=== PATIENT | female | born 1970 | race Caucasian/White ===

== ENCOUNTER 2017-08-25 12:58 | Emergency (ER) | payer SELFPAY ==
[~2017-08-25] VITALS: Ht 175.3 cm; Wt 119.3 kg
[2017-08-25] MEDS ORDERED: PROM25 PO (15:32)
== END 2017-08-25 15:52 | disposition home or self-care (01) ==
LOC: ER 12:58
DX: S06.0X9A Concussion with loss of consciousness of unspecified duration, initial encounter (principal); W01.0XXA Fall on same level from slipping, tripping and stumbling without subsequent striking against object, initial encounter
CPT/HCPCS: 99283

== ENCOUNTER 2018-07-13 01:35 | Emergency (ER) | payer BC ==
[~2018-07-13] VITALS: Ht 175.3 cm; Wt 134.7 kg
[~2018-07-13 01:35] MED LIST: PROM25 PO
[2018-07-13] MEDS ORDERED: CEPH500 (02:15)
[2018-07-13] MEDS ORDERED: FLUC100 (02:15)
[2018-07-13] MEDS ORDERED: VALA500 (02:15)
[2018-07-13] MEDS ORDERED: NYST100000 (02:15)
[2018-07-13 03:05] LABS: BASOPHILS ABSOLUTE AUTO 0.06 K/mm3 (0.00-0.23); BASOPHILS PERCENT AUTO 1 % (0-2); EOSINOPHILS ABSOLUTE AUTO 0.13 K/mm3 (0.00-0.68); EOSINOPHILS PERCENT AUTO 2 % (0-6); Hematocrit 37.7 % (33.0-51.0); Hemoglobin 13.1 g/dL (11.5-16.0); IMMATURE GRAN ABSOLUTE AUTO 0.02 K/mm3 (0.00-0.10); IMMATURE GRAN PERCENT AUTO 0 % (0-1); LYMPHOCYTES ABSOLUTE AUTO 1.99 K/mm3 (0.84-5.20); LYMPHOCYTES PERCENT AUTO 32 % (21-46); MONOCYTES ABSOLUTE AUTO 0.78 K/mm3 (0.16-1.47); MONOCYTES PERCENT AUTO 13 % (4-13); Mean Corpuscular HGB 36.7 pg (26.0-34.0); Mean Corpuscular HGB Conc 34.7 g/dL (31.5-36.5); Mean Corpuscular Volume 106 fL (80-100); Mean Platelet Volume 10.3 fL (9.1-12.4); NEUTROPHILS ABSOLUTE AUTO 3.16 K/mm3 (1.96-9.15); NEUTROPHILS PERCENT AUTO 52 % (41-73); Platelet Count 168 K/mm3 (150-400); RDW Coefficient Variation 12.3 % (11.7-14.2); RDW Standard Deviation 48.3 fL (35.1-46.3); Red Blood Cell Count 3.57 M/mm3 (3.80-5.20); White Blood Cell Count 6.14 K/mm3 (4.00-11.30)
[2018-07-13 03:24] LABS: Alanine Aminotransfer (ALT/SGP 116 U/L (12-78); Albumin, Blood 3.4 g/dL (3.4-5.0); Albumin/Globulin Ratio 0.8 (0.8-1.8); Alk Phos 144 U/L (50-136); Anion Gap 8 mmol/L (6-16); Aspartate Aminotrans (AST/SGOT 100 U/L (12-37); Bilirubin, Total 0.5 mg/dL (0.1-1.0); Blood Urea Nitrogen 13 mg/dL (8-24); Bun/Creatinine Ratio 21.8 (12.0-20.0); CO2, Blood 24 mmol/L (21-32); Calcium, Blood 8.6 mg/dL (8.5-10.1); Chloride, Blood 110 mmol/L (98-108); Globulin, Blood 4.1 g/dL (2.2-4.0); Glomerular Filtration Rate >60 (60-); Glucose, Blood 133 mg/dL (70-99); Potassium, Blood 3.9 mmol/L (3.5-5.5); Sodium, Blood 142 mmol/L (136-145); Total Protein, Blood 7.5 g/dL (6.4-8.2); Troponin I <0.015 ng/mL (0.000-0.040)
== END 2018-07-13 05:04 | disposition home or self-care (01) ==
LOC: ER 01:35
PROVIDERS: Emergency Medicine
DX: R00.2 Palpitations (principal); Z79.899 Other long term (current) drug therapy; F17.200 Nicotine dependence, unspecified, uncomplicated
CPT/HCPCS: 36415; 71046; 80053; 83690; 84484; 85025; 93005; 93010; 99285-25

== ENCOUNTER → 2019-03-16 | Outpatient (CLI) | payer BC ==
[~2019-03-16] MED LIST changes: +CEPH500; +FLUC100; +NYST100000; +VALA500
[2019-03-18 06:07] LABS: HBSAG SCREEN Negative (Negative); HCV ANTIBODY 0.2 (0.0-0.9)
== END ==
LOC: LAB SHORT 14:26 → LAB 14:26
PROVIDERS: Nurse Practitioner
DX: Z77.21 Contact with and (suspected) exposure to potentially hazardous body fluids (principal)
CPT/HCPCS: 84460; 86317; 86703; 86803; 87340

== ENCOUNTER 2020-06-23 10:06 | Emergency (ER) | payer OTHER ==
[~2020-06-23] VITALS: Ht 175.3 cm; Wt 136.1 kg
[2020-06-23 11:12] LABS: BASOPHILS ABSOLUTE AUTO 0.05 K/mm3 (0.00-0.23); BASOPHILS PERCENT AUTO 1 % (0-2); EOSINOPHILS ABSOLUTE AUTO 0.04 K/mm3 (0.00-0.68); EOSINOPHILS PERCENT AUTO 1 % (0-6); Hematocrit 40.7 % (33.0-51.0); Hemoglobin 13.9 g/dL (11.5-16.0); IMMATURE GRAN ABSOLUTE AUTO 0.04 K/mm3 (0.00-0.10); IMMATURE GRAN PERCENT AUTO 1 % (0-1); LYMPHOCYTES ABSOLUTE AUTO 1.41 K/mm3 (0.84-5.20); LYMPHOCYTES PERCENT AUTO 26 % (21-46); MONOCYTES ABSOLUTE AUTO 0.72 K/mm3 (0.16-1.47); MONOCYTES PERCENT AUTO 13 % (4-13); Mean Corpuscular HGB 36.5 pg (26.0-34.0); Mean Corpuscular HGB Conc 34.2 g/dL (31.5-36.5); Mean Corpuscular Volume 107 fL (80-100); Mean Platelet Volume 10.7 fL (9.1-12.4); NEUTROPHILS ABSOLUTE AUTO 3.14 K/mm3 (1.96-9.15); NEUTROPHILS PERCENT AUTO 58 % (41-73); Platelet Count 117 K/mm3 (150-400); RDW Coefficient Variation 12.8 % (11.7-14.2); RDW Standard Deviation 51.1 fL (35.1-46.3); Red Blood Cell Count 3.81 M/mm3 (3.80-5.20)
[2020-06-23 11:36] LABS: Alanine Aminotransfer (ALT/SGP 108 U/L (12-78); Albumin, Blood 3.5 g/dL (3.4-5.0); Albumin/Globulin Ratio 0.8 (0.8-1.8); Alk Phos 175 U/L (50-136); Anion Gap 11 mmol/L (6-16); Aspartate Aminotrans (AST/SGOT 123 U/L (12-37); Bilirubin, Total 0.6 mg/dL (0.1-1.0); Blood Urea Nitrogen 8 mg/dL (8-24); Bun/Creatinine Ratio 15.5 (12.0-20.0); CO2, Blood 25 mmol/L (21-32); Calcium, Blood 9.1 mg/dL (8.5-10.1); Chloride, Blood 106 mmol/L (98-108); Creatinine, Blood 0.52 mg/dL (0.40-1.00); Globulin, Blood 4.6 g/dL (2.2-4.0); Glomerular Filtration Rate >60 (60-); Glucose, Blood 123 mg/dL (70-99); Potassium, Blood 3.9 mmol/L (3.5-5.5); Sodium, Blood 142 mmol/L (136-145); Total Protein, Blood 8.1 g/dL (6.4-8.2); Troponin I <0.015 ng/mL (0.000-0.040)
[2020-06-23] MEDS ORDERED: ATEN25 PO (12:23)
== END 2020-06-23 12:52 | disposition home or self-care (01) ==
LOC: ER 10:06
PROVIDERS: Physician Assistant
DX: I10 Essential (primary) hypertension (principal); F17.200 Nicotine dependence, unspecified, uncomplicated; Z79.899 Other long term (current) drug therapy
CPT/HCPCS: 36415; 71046; 80053; 84484; 85025; 93005; 93010; 96374; 99285-25; J2060

== ENCOUNTER 2021-05-01 20:02 | Emergency (ER) | payer OTHER ==
[~2021-05-01] VITALS: Ht 175.3 cm; Wt 127.0 kg
[~2021-05-01 20:02] MED LIST changes: +ATEN25 PO
[2021-05-01 20:40] LABS: BASOPHILS ABSOLUTE AUTO 0.05 K/mm3 (0.00-0.23); BASOPHILS PERCENT AUTO 1 % (0-2); EOSINOPHILS ABSOLUTE AUTO 0.04 K/mm3 (0.00-0.68); EOSINOPHILS PERCENT AUTO 1 % (0-6); Hemoglobin 11.6 g/dL (11.5-16.0); IMMATURE GRAN ABSOLUTE AUTO 0.05 K/mm3 (0.00-0.10); IMMATURE GRAN PERCENT AUTO 1 % (0-1); LYMPHOCYTES ABSOLUTE AUTO 1.49 K/mm3 (0.84-5.20); LYMPHOCYTES PERCENT AUTO 24 % (21-46); MONOCYTES ABSOLUTE AUTO 0.54 K/mm3 (0.16-1.47); MONOCYTES PERCENT AUTO 9 % (4-13); Mean Corpuscular HGB 34.6 pg (26.0-34.0); Mean Corpuscular HGB Conc 34.1 g/dL (31.5-36.5); Mean Corpuscular Volume 102 fL (80-100); Mean Platelet Volume 10.3 fL (9.1-12.4); NEUTROPHILS ABSOLUTE AUTO 4.07 K/mm3 (1.96-9.15); NEUTROPHILS PERCENT AUTO 65 % (41-73); Platelet Count 149 K/mm3 (150-400); RDW Coefficient Variation 13.2 % (11.7-14.2); RDW Standard Deviation 48.9 fL (35.1-46.3); Red Blood Cell Count 3.35 M/mm3 (3.80-5.20); White Blood Cell Count 6.24 K/mm3 (4.00-11.30)
[2021-05-01 21:07] LABS: Alanine Aminotransfer (ALT/SGP 55 U/L (12-78); Albumin, Blood 3.3 g/dL (3.4-5.0); Albumin/Globulin Ratio 0.7 (0.8-1.8); Alk Phos 142 U/L (50-136); Anion Gap 8 mmol/L (6-16); Aspartate Aminotrans (AST/SGOT 106 U/L (12-37); Bilirubin, Total 0.6 mg/dL (0.1-1.0); Blood Urea Nitrogen 7 mg/dL (8-24); Bun/Creatinine Ratio 10.4 (12.0-20.0); CO2, Blood 25 mmol/L (21-32); Chloride, Blood 110 mmol/L (98-108); Creatinine, Blood 0.67 mg/dL (0.40-1.00); Ethanol (Alcohol), Blood, Med <3 mg/dL; Globulin, Blood 4.7 g/dL (2.2-4.0); Glomerular Filtration Rate >60 (60-); Glucose, Blood 139 mg/dL (70-99); Magnesium, Blood 1.3 mg/dL (1.6-2.4); Potassium, Blood 3.6 mmol/L (3.5-5.5); Sodium, Blood 143 mmol/L (136-145)
[2021-05-02] MEDS ORDERED: LISI20 PO (00:37)
[2021-05-02] MEDS ORDERED: ZOLOFT50 MG (00:37)
[2021-05-02] MEDS ORDERED: CHLO25 (00:38)
[2021-05-02] MEDS ORDERED: HYDR10 (00:38)
[2021-05-02] MEDS ORDERED: TRAZ100 (00:39)
== END 2021-05-02 02:41 | disposition home or self-care (01) ==
LOC: ER 20:02
PROVIDERS: Emergency Medicine
DX: F10.10 Alcohol abuse, uncomplicated (principal); S00.12XA Contusion of left eyelid and periocular area, initial encounter; S00.83XA Contusion of other part of head, initial encounter; E83.42 Hypomagnesemia; G89.29 Other chronic pain; M54.9 Dorsalgia, unspecified; F17.200 Nicotine dependence, unspecified, uncomplicated; Z79.899 Other long term (current) drug therapy; W01.0XXA Fall on same level from slipping, tripping and stumbling without subsequent striking against object, initial encounter
CPT/HCPCS: 36415; 70450; 70486; 80053; 83690; 83735; 85025; 93005; 93010; 96365; 96366; 99284-25; G0480; J3475

== ENCOUNTER 2021-07-08 20:31 | Emergency (ER) | payer OTHER ==
[~2021-07-08] VITALS: Ht 175.3 cm; Wt 128.8 kg
[~2021-07-08 20:31] MED LIST changes: +CHLO25; +HYDR10; +LISI20 PO; +TRAZ100; +ZOLOFT50 MG
[2021-07-09] MEDS ORDERED: ONDA4ODT SL (18:42)
== END 2021-07-08 22:31 | disposition home or self-care (01) ==
LOC: ER 20:31
DX: R04.0 Epistaxis (principal); I10 Essential (primary) hypertension; F17.200 Nicotine dependence, unspecified, uncomplicated
CPT/HCPCS: 99283; A9270

== ENCOUNTER 2021-07-09 14:17 | Emergency (ER) | payer OTHER ==
[~2021-07-09] VITALS: Ht 175.3 cm; Wt 128.8 kg
[2021-07-09 17:14] LABS: BASOPHILS ABSOLUTE AUTO 0.03 K/mm3 (0.00-0.23); BASOPHILS PERCENT AUTO 0 % (0-2); EOSINOPHILS PERCENT AUTO 0 % (0-6); Hematocrit 30.6 % (33.0-51.0); Hemoglobin 10.1 g/dL (11.5-16.0); IMMATURE GRAN ABSOLUTE AUTO 0.02 K/mm3 (0.00-0.10); IMMATURE GRAN PERCENT AUTO 0 % (0-1); LYMPHOCYTES ABSOLUTE AUTO 1.35 K/mm3 (0.84-5.20); LYMPHOCYTES PERCENT AUTO 15 % (21-46); MONOCYTES ABSOLUTE AUTO 0.77 K/mm3 (0.16-1.47); MONOCYTES PERCENT AUTO 8 % (4-13); Mean Corpuscular HGB 34.2 pg (26.0-34.0); Mean Corpuscular Volume 104 fL (80-100); Mean Platelet Volume 11.3 fL (9.1-12.4); NEUTROPHILS ABSOLUTE AUTO 6.98 K/mm3 (1.96-9.15); NEUTROPHILS PERCENT AUTO 76 % (41-73); Platelet Count 147 K/mm3 (150-400); RDW Coefficient Variation 16.3 % (11.7-14.2); RDW Standard Deviation 62.5 fL (35.1-46.3); Red Blood Cell Count 2.95 M/mm3 (3.80-5.20); White Blood Cell Count 9.15 K/mm3 (4.00-11.30)
[2021-07-09 17:33] LABS: Alanine Aminotransfer (ALT/SGP 28 U/L (12-78); Albumin, Blood 3.3 g/dL (3.4-5.0); Albumin/Globulin Ratio 0.7 (0.8-1.8); Alk Phos 115 U/L (50-136); Anion Gap 5 mmol/L (6-16); Aspartate Aminotrans (AST/SGOT 40 U/L (12-37); Blood Urea Nitrogen 36 mg/dL (8-24); Bun/Creatinine Ratio 40.6 (12.0-20.0); CO2, Blood 23 mmol/L (21-32); Calcium, Blood 9.4 mg/dL (8.5-10.1); Chloride, Blood 112 mmol/L (98-108); Creatinine, Blood 0.89 mg/dL (0.40-1.00); Globulin, Blood 4.9 g/dL (2.2-4.0); Glomerular Filtration Rate >60 (60-); Glucose, Blood 149 mg/dL (70-99); Potassium, Blood 4.6 mmol/L (3.5-5.5); Sodium, Blood 140 mmol/L (136-145); Total Protein, Blood 8.2 g/dL (6.4-8.2)
[2021-07-09 18:02] LABS: International Normalized Ratio 1.35; Prothrombin Time Results 13.9 Sec (9.7-11.5)
[2021-07-09] MEDS ORDERED: ONDA4ODT SL (18:42)
== END 2021-07-09 18:54 | disposition home or self-care (01) ==
LOC: ER 14:17
PROVIDERS: Emergency Medicine
DX: R04.0 Epistaxis (principal); Z79.899 Other long term (current) drug therapy; I10 Essential (primary) hypertension; Z87.891 Personal history of nicotine dependence
CPT/HCPCS: 30903; 80053; 85025; 85610; 85730; 99282; A9270

== ENCOUNTER 2021-10-27 11:34 | Inpatient (IN) | payer OTHER ==
[~2021-10-27] VITALS: Ht 175.3 cm; Wt 119.6 kg
[~2021-10-27 11:34] MED LIST changes: +ONDA4ODT SL
[2021-10-27 14:33] LABS: Albumin, Blood 1.9 g/dL (3.4-5.0); Albumin/Globulin Ratio 0.3 (0.8-1.8); Bilirubin, Total 2.2 mg/dL (0.1-1.0); Bun/Creatinine Ratio 13.8 (12.0-20.0); Calcium, Blood 7.7 mg/dL (8.5-10.1); Creatinine, Blood 4.06 mg/dL (0.40-1.00); Globulin, Blood 6.2 g/dL (2.2-4.0); Potassium, Blood 4.1 mmol/L (3.5-5.5); Total Protein, Blood 8.1 g/dL (6.4-8.2)
[2021-10-27 15:41] LABS: BASOPHILS ABSOLUTE AUTO 0.06 K/mm3 (0.00-0.23); BASOPHILS PERCENT AUTO 0 % (0-2); EOSINOPHILS ABSOLUTE AUTO 0.08 K/mm3 (0.00-0.68); EOSINOPHILS PERCENT AUTO 0 % (0-6); IMMATURE GRAN ABSOLUTE AUTO 0.36 K/mm3 (0.00-0.10); IMMATURE GRAN PERCENT AUTO 2 % (0-1); LYMPHOCYTES ABSOLUTE AUTO 1.88 K/mm3 (0.84-5.20); LYMPHOCYTES PERCENT AUTO 8 % (21-46); MONOCYTES ABSOLUTE AUTO 1.73 K/mm3 (0.16-1.47); MONOCYTES PERCENT AUTO 8 % (4-13); Mean Corpuscular HGB 29.1 pg (26.0-34.0); Mean Corpuscular HGB Conc 30.7 g/dL (31.5-36.5); Mean Corpuscular Volume 95 fL (80-100); Mean Platelet Volume 11.2 fL (9.1-12.4); NEUTROPHILS ABSOLUTE AUTO 18.75 K/mm3 (1.96-9.15); NEUTROPHILS PERCENT AUTO 82 % (41-73); NRBC ABSOLUTE 0.02 K/mm3 (0.00-0.02); NRBC Auto 0.1 /100 WBC (0.0-0.2); Platelet Count 114 K/mm3 (150-400); RDW Coefficient Variation 26.5 % (11.7-14.2); RDW Standard Deviation 90.7 fL (35.1-46.3); Red Blood Cell Count 1.89 M/mm3 (3.80-5.20); White Blood Cell Count 22.86 K/mm3 (4.00-11.30)
[2021-10-27 15:42] LABS: Magnesium, Blood 1.9 mg/dL (1.6-2.4); Phosphorus, Blood 7.2 mg/dL (2.5-4.9)
[2021-10-27 15:46] LABS: Hemoglobin 5.5 g/dL (11.5-16.0)
[2021-10-27 15:47] LABS: Hematocrit 17.9 % (33.0-51.0)
[2021-10-27 18:36] LABS: BASOPHILS ABSOLUTE AUTO 0.04 K/mm3 (0.00-0.23); BASOPHILS PERCENT AUTO 0 % (0-2); EOSINOPHILS ABSOLUTE AUTO 0.08 K/mm3 (0.00-0.68); EOSINOPHILS PERCENT AUTO 0 % (0-6); IMMATURE GRAN ABSOLUTE AUTO 0.31 K/mm3 (0.00-0.10); IMMATURE GRAN PERCENT AUTO 1 % (0-1); LYMPHOCYTES ABSOLUTE AUTO 1.92 K/mm3 (0.84-5.20); LYMPHOCYTES PERCENT AUTO 8 % (21-46); MONOCYTES ABSOLUTE AUTO 2.18 K/mm3 (0.16-1.47); MONOCYTES PERCENT AUTO 10 % (4-13); Mean Corpuscular HGB 29.4 pg (26.0-34.0); Mean Corpuscular HGB Conc 31.1 g/dL (31.5-36.5); Mean Corpuscular Volume 94 fL (80-100); Mean Platelet Volume 11.2 fL (9.1-12.4); NEUTROPHILS PERCENT AUTO 80 % (41-73); NRBC ABSOLUTE 0.02 K/mm3 (0.00-0.02); NRBC Auto 0.1 /100 WBC (0.0-0.2); Platelet Count 118 K/mm3 (150-400); RDW Coefficient Variation 26.1 % (11.7-14.2); RDW Standard Deviation 87.8 fL (35.1-46.3); Red Blood Cell Count 1.77 M/mm3 (3.80-5.20); White Blood Cell Count 22.93 K/mm3 (4.00-11.30)
[2021-10-27 18:46] LABS: Hematocrit 16.7 % (33.0-51.0); Hemoglobin 5.2 g/dL (11.5-16.0)
[2021-10-27 19:08] LABS: Ferritin, Serum 153 ng/mL (8-252); Iron Serum 24 ug/dL (50-170); Percent Saturation 12.2 % (15.0-50.0); Total Iron Binding Capacity 197 ug/dL (250-450)
[2021-10-28 02:16] LABS: BASOPHILS ABSOLUTE AUTO 0.05 K/mm3 (0.00-0.23); BASOPHILS PERCENT AUTO 0 % (0-2); EOSINOPHILS ABSOLUTE AUTO 0.11 K/mm3 (0.00-0.68); EOSINOPHILS PERCENT AUTO 1 % (0-6); Hematocrit 22.8 % (33.0-51.0); Hemoglobin 7.2 g/dL (11.5-16.0); IMMATURE GRAN ABSOLUTE AUTO 0.23 K/mm3 (0.00-0.10); IMMATURE GRAN PERCENT AUTO 1 % (0-1); LYMPHOCYTES ABSOLUTE AUTO 1.99 K/mm3 (0.84-5.20); LYMPHOCYTES PERCENT AUTO 10 % (21-46); MONOCYTES ABSOLUTE AUTO 2.16 K/mm3 (0.16-1.47); MONOCYTES PERCENT AUTO 11 % (4-13); Mean Corpuscular HGB 28.8 pg (26.0-34.0); Mean Corpuscular HGB Conc 31.6 g/dL (31.5-36.5); Mean Corpuscular Volume 91 fL (80-100); Mean Platelet Volume 10.5 fL (9.1-12.4); NEUTROPHILS ABSOLUTE AUTO 15.84 K/mm3 (1.96-9.15); NEUTROPHILS PERCENT AUTO 78 % (41-73); Platelet Count 102 K/mm3 (150-400); RDW Coefficient Variation 23.5 % (11.7-14.2); RDW Standard Deviation 73.3 fL (35.1-46.3); White Blood Cell Count 20.38 K/mm3 (4.00-11.30)
[2021-10-28 02:34] LABS: Albumin, Blood 1.7 g/dL (3.4-5.0); Albumin/Globulin Ratio 0.3 (0.8-1.8); Bilirubin, Total 2.3 mg/dL (0.1-1.0); Bun/Creatinine Ratio 14.6 (12.0-20.0); Calcium, Blood 7.4 mg/dL (8.5-10.1); Creatinine, Blood 4.19 mg/dL (0.40-1.00); Potassium, Blood 4.3 mmol/L (3.5-5.5); Total Protein, Blood 7.7 g/dL (6.4-8.2)
--- NOTE | 2021-10-28 06:48 | NUR ---
SHIFT SUMMARY NOC: PT RECIEVED 3 UNITS PRBC TOTAL WITHOUT COMPLICATION. PT IS ALERT AND ORIENTATED, 2L NC SOB WITH EXERTION. ALL 4 BOTTLES OF BLOOD CULTURE GREW GRAM POSITIVE COCCI. PHARMACY STATED CURRENT ABX ARE EXCEPTABLE. UPDATED, NO NEW ORDERS. PT AFEBRILE, VITALS STABLE.
[2021-10-28 10:11] LABS: BASOPHILS ABSOLUTE AUTO 0.06 K/mm3 (0.00-0.23); BASOPHILS PERCENT AUTO 0 % (0-2); EOSINOPHILS ABSOLUTE AUTO 0.15 K/mm3 (0.00-0.68); EOSINOPHILS PERCENT AUTO 1 % (0-6); Hematocrit 21.8 % (33.0-51.0); Hemoglobin 6.8 g/dL (11.5-16.0); IMMATURE GRAN ABSOLUTE AUTO 0.27 K/mm3 (0.00-0.10); IMMATURE GRAN PERCENT AUTO 1 % (0-1); LYMPHOCYTES PERCENT AUTO 11 % (21-46); MONOCYTES PERCENT AUTO 11 % (4-13); Mean Corpuscular HGB 28.7 pg (26.0-34.0); Mean Corpuscular HGB Conc 31.2 g/dL (31.5-36.5); Mean Corpuscular Volume 92 fL (80-100); Mean Platelet Volume 11.2 fL (9.1-12.4); NEUTROPHILS ABSOLUTE AUTO 15.33 K/mm3 (1.96-9.15); NEUTROPHILS PERCENT AUTO 76 % (41-73); Platelet Count 100 K/mm3 (150-400); RDW Coefficient Variation 23.9 % (11.7-14.2); RDW Standard Deviation 72.3 fL (35.1-46.3); Red Blood Cell Count 2.37 M/mm3 (3.80-5.20); White Blood Cell Count 20.31 K/mm3 (4.00-11.30)
[2021-10-28 14:54] LABS: Source, Urine Straight Cath
[2021-10-28 15:03] LABS: Appearance, Urine Hazy (Clear); Blood, Urine 1+ (Neg); Color, Urine Amber (P-Yellow); Glucose Qualitative, Urine Neg (Neg); Ketones, Urine Neg (Neg); Leukocyte Esterase, Urine Neg (Neg); Nitrite, Urine Neg (Neg); Protein, Urine 2+ (Neg); Urobilinogen, Urine 1+ (Normal)
[2021-10-28 15:15] LABS: Bilirubin, Urine 1+ (Neg)
[2021-10-28 15:17] LABS: Bacteria Many /hpf; Squamous Epithelial Cells Many /hpf (Few); Transitional Epithelial Cells Rare /hpf (0-Rare)
[2021-10-28 15:54] LABS: Hemoglobin 6.9 g/dL (11.5-16.0)
--- NOTE | 2021-10-28 16:16 | NUR ---
PT HAS MANY FAMILY MEMBERS WHO ARE SITTING WITH HER AND IT WAS DECIDED TO MOVE HER TO A ROOM WITH MORE SPACE TO ACCOMMEDATE THEM. REPORT GIVEN TO LION BECKER AND PT TRANFERRED WITH ALL BELONGINGS @ 9988. FAMILY MEMBERS DIRECTED TO NEW ROOM.
--- NOTE | 2021-10-28 16:20 | NUR ---
DISREGARD LAST NOTE MADE ABOUT PT TRANFER, IT WAS MADE IN ERROR ABOUT A DIFFERENT PT
[2021-10-28 16:27] LABS: Lactate Dehydrogenase (Ld),Bld 280 U/L (100-240)
[2021-10-28 16:34] LABS: CPK Creatine Kinase 38 U/L (26-193)
[2021-10-28 17:34] LABS: Eosinophils-Raw #,Urine 2
--- NOTE | 2021-10-28 19:39 | NUR ---
SHIFT SUMMARY PT WAS LETHARGIC AND SLEEPY THIS AM. BLOOD PRESSURE HAS BEEN SOFT TODAY. AWARE ALONG WITH TROPS AND RECENT HGB. PT RECIEVED A 500 ML BOLUS THIS PM WHICH BROUGHT UP HER BP A LITTLE TO 106/61. SHE IS MUCH MORE AWAKE AND TALKATIVE. SHE HAS SIGNIFICANT BACK PAIN AND IS USING A HEATING PAD. OKAYED PAIN MEDS AT A BP OF 102/55 THIS PM. IS IN THE ROOM AT THE BEDSIDE. SHE IS ON 2L OF O2 AND IS SATTING 96% SOMETIMES NEEDS TO BE BUMPED WHEN WALKING TO THE BATHROOM. PT HAS REFUSED BEDSIDE COMMODE AND IS A 1 O ASSIST TO THE BATHROOM WITH A WALKER. URINE SAMPLE SENT AWAY AND CONSULT WITH RECOVERY ENGINEER WAS THIS AFTERNOON.
[2021-10-28 22:04] LABS: Hemoglobin 6.7 g/dL (11.5-16.0)
--- NOTE | 2021-10-28 23:53 | NUR ---
THERE WAS A COMPLICATION WITH THE UNIT READY SLIP FROM BLOOD BANK - I SENT IT BACK QUITE AWHILE AGO. I FOLLOWED UP WITH A TELEPHONE CALL TO GOPAL IN THE BLOOD BANK, AND HE REPORTED HE NEVER RECEIVED IT. GOPAL REPORTED HE WOULD SEND ANOTHER UNIT READY SLIP DOWN. HE DID SEND ANOTHER UNIT READY SLIP, HOWEVER KADEN BAH SPOKE TO LAB, AND THEY REPORTED THEY FOUND THE FIRST UNIT READY SLIP AND TO PLEASE SEND THE 2ND UNIT READY SLIP BACK. I DECIDED TO HANG THE ALBUMIN, REVIEWED WITH KADEN BAH ON THIS. THEN JURGEN, FROM LAB CAME DOWN AND BROUGHT ANOTHER UNIT READY SLIP TO BE VERIFIED AT 2350. I TOLD JURGEN I WAS RUNNING THE ALBUMIN NOW, AND WILL CALL WHEN FINISHED FOR THE UNIT OF BLOOD. H&H NOT CRITICAL - SEE LAB.
--- NOTE | 2021-10-29 02:21 | NUR ---
PT UP WITH 2 PERSON ASSIST TO BSC. PT REPORTED NEEDING TO VOID, UNSUCCESSFUL. REVIEWED WITH PT, IF SHE FELT ANY LOWER ABDOMINAL PRESSURE OR FEELING URGE TO URINATE ONCE BACK INTO BED, PT DENIED.
--- NOTE | 2021-10-29 02:52 | NUR ---
BLADDER SCAN X5 ATTEMPTS - NO URINE SHOWN ON SCAN.
--- NOTE | 2021-10-29 03:00 | NUR ---
SPOKE TO DR. JIMENES - UPDATED ON BLADDER SCAN RESULT OF ZERO, AND NEPHROLOGY ON THE CASE. REVIEWED GFR RESULTS WITH DR. JIMENES. BLADDER SCAN ORDER OBTAINED.
--- NOTE | 2021-10-29 04:39 | NUR ---
SHIFT SUMMARY - PT CONTINUES WITH GENERALIZED WEAKNESS. PT IS MORBIDLY OBESE. PT UP TO BRP WITH SBA X1, THEN BSC WITH 2 PERSON SBA - PT WAS ABLE TO STAND AND PIVOT. PT DENIED ANY CHEST PAIN, HEADACHE, OR NAUSEA. TELE IN PLACE - RHYTHM STRIP ON CHART SHOWS NSR. PT RECEIVED 1 UNIT PRBC'S WITHOUT COMPLICATIONS. PT WITH POOR URINE OUTPUT - SEE I/O'S. SANDOSTATIN INFUSING WITHOUT COMPLICATIONS. LS VARIED FROM WHEEZES PRIOR TO ADMINISTRATION OF BLOOD TONIGHT, TO CLEAR LUNG SOUNDS AFTER 1U PRBC'S INFUSED. PT HAS BEEN OFF/ON SLEEPING THROUGHOUT MOST OF THE NIGHT. PT AWAKENS EASILY TO VERBAL COMMUNICATION. NEPHROLOGY ON THE CASE. R FA IV SITE WNL, L AC IV SITE WNL. FLUIDS AT BEDSIDE. CALL LIGHT WITHIN REACH. BED IN LOW POSITION. WILL CONTINUE TO MONITOR UNTIL AM SHIFT CHANGE.
[2021-10-29 05:54] LABS: BASOPHILS ABSOLUTE AUTO 0.13 K/mm3 (0.00-0.23); BASOPHILS PERCENT AUTO 1 % (0-2); EOSINOPHILS ABSOLUTE AUTO 0.27 K/mm3 (0.00-0.68); EOSINOPHILS PERCENT AUTO 1 % (0-6); Hematocrit 24.8 % (33.0-51.0); Hemoglobin 7.7 g/dL (11.5-16.0); IMMATURE GRAN ABSOLUTE AUTO 0.29 K/mm3 (0.00-0.10); IMMATURE GRAN PERCENT AUTO 2 % (0-1); LYMPHOCYTES ABSOLUTE AUTO 2.53 K/mm3 (0.84-5.20); LYMPHOCYTES PERCENT AUTO 13 % (21-46); MONOCYTES ABSOLUTE AUTO 2.83 K/mm3 (0.16-1.47); MONOCYTES PERCENT AUTO 15 % (4-13); Mean Corpuscular HGB 28.8 pg (26.0-34.0); Mean Corpuscular Volume 93 fL (80-100); Mean Platelet Volume 10.4 fL (9.1-12.4); NEUTROPHILS ABSOLUTE AUTO 12.89 K/mm3 (1.96-9.15); NEUTROPHILS PERCENT AUTO 68 % (41-73); Platelet Count 93 K/mm3 (150-400); RDW Coefficient Variation 23.4 % (11.7-14.2); RDW Standard Deviation 73.6 fL (35.1-46.3); Red Blood Cell Count 2.67 M/mm3 (3.80-5.20); White Blood Cell Count 18.94 K/mm3 (4.00-11.30)
[2021-10-29 06:15] LABS: Albumin, Blood 2.3 g/dL (3.4-5.0); Albumin/Globulin Ratio 0.4 (0.8-1.8); Bilirubin, Total 1.5 mg/dL (0.1-1.0); Bun/Creatinine Ratio 11.4 (12.0-20.0); Calcium, Blood 7.4 mg/dL (8.5-10.1); Creatinine, Blood 5.6 mg/dL (0.40-1.00); Globulin, Blood 5.9 g/dL (2.2-4.0); Potassium, Blood 4.5 mmol/L (3.5-5.5); Total Protein, Blood 8.2 g/dL (6.4-8.2)
--- NOTE | 2021-10-29 06:26 | NUR ---
NA+ 125 THIS AM, TREND HAS BEEN 127, 128 - REVIEWED WITH ELAINE, AND KADEN BAH - OK TO RELAY TO AM SHIFT. GFR 9, TRENDING DOWNWARD - NEPHROLOGY ON THE CASE - WILL REPORT THIS TO ONCOMING SHIFT ALSO.
[2021-10-29 08:46] LABS: Vancomycin, Random 16.8 ug/mL
[2021-10-29 10:11] LABS: COMPLEMENT C3, SERUM 107 mg/dL (82-167); COMPLEMENT C4, SERUM 12 mg/dL (12-38)
--- NOTE | 2021-10-29 19:16 | NUR ---
SHIFT SUMMARY PATIENT VERY TIRED AND FORGETFUL T/O SHIFT. PATIENTS AT BEDSIDE MOST OF SHIFT. HEAVY 2PA TO BSC. PITTING EDEMA PRESENT ON BLE. ON TELE SINUS RHYTHM. TEMPORARY DIALYSIS CATHETER PLACED THIS AFTERNOON AND PATIENT CURRENTLY RECEIVING DIALYSIS AT BEDSIDE. POOR APPETITE T/O SHIFT. PATIENT UNABLE TO VOID, GETTING UP A FEW TIMES TO BSC BUT UNABLE TO PEE. SOFT BLOOD PRESSURES, MEDICATED PER JUL. ON 2L NC. WILL CONTINUE TO MONITOR.
--- NOTE | 2021-10-30 05:17 | NUR ---
SHIFT SUMMARY ASSUMED CARE OF PT AROUND 1900. PT IS A/OX3. PT IS FORGETFUL AND SLOW TO RESPOND. PT HAS A HARD TIME TRACKING WITH HER EYES AND WILL FORGET THAT TO DO THE TASK ASKED WITHLE DOING IT. FOR EXAMPLE, PT WAS ASKED TO HOLD HER ARM DOWN WHILE MEDICATIONS WRE GIVEN AND PT MOVED ARM TO FACE AND HAD TO BE ASKEDTO PUT ARM BACK DOWN. HEART SOUNDS REGULAR, LUNG SOUNDS DIMINISHED. PT WAS INCONTIENT OF BOWEL AND BLADDER. PT IS A 2P MAX ASSIST. PT IS VERY EDEMADOUS ALL OVER. NYSTATIN ORDERED FOR PANUS AND UNDER BREAST DUE TO REDNESS. PT HAS A SMALL ABRASION IN BETWEEN HER BUTTOCK.
[2021-10-30 05:45] LABS: BASOPHILS ABSOLUTE AUTO 0.08 K/mm3 (0.00-0.23); BASOPHILS PERCENT AUTO 1 % (0-2); EOSINOPHILS ABSOLUTE AUTO 0.17 K/mm3 (0.00-0.68); EOSINOPHILS PERCENT AUTO 1 % (0-6); Hematocrit 21.5 % (33.0-51.0); Hemoglobin 6.8 g/dL (11.5-16.0); IMMATURE GRAN ABSOLUTE AUTO 0.15 K/mm3 (0.00-0.10); IMMATURE GRAN PERCENT AUTO 1 % (0-1); LYMPHOCYTES ABSOLUTE AUTO 1.47 K/mm3 (0.84-5.20); LYMPHOCYTES PERCENT AUTO 12 % (21-46); MONOCYTES ABSOLUTE AUTO 1.33 K/mm3 (0.16-1.47); MONOCYTES PERCENT AUTO 11 % (4-13); Mean Corpuscular HGB 29.1 pg (26.0-34.0); Mean Corpuscular HGB Conc 31.6 g/dL (31.5-36.5); Mean Corpuscular Volume 92 fL (80-100); Mean Platelet Volume 11.3 fL (9.1-12.4); NEUTROPHILS ABSOLUTE AUTO 9.33 K/mm3 (1.96-9.15); NEUTROPHILS PERCENT AUTO 75 % (41-73); Platelet Count 70 K/mm3 (150-400); RDW Coefficient Variation 23.3 % (11.7-14.2); Red Blood Cell Count 2.34 M/mm3 (3.80-5.20); White Blood Cell Count 12.53 K/mm3 (4.00-11.30)
[2021-10-30 06:07] LABS: Bun/Creatinine Ratio 10.7 (12.0-20.0); Calcium, Blood 7.7 mg/dL (8.5-10.1); Creatinine, Blood 4.4 mg/dL (0.40-1.00); Potassium, Blood 4.1 mmol/L (3.5-5.5)
[2021-10-30 08:11] LABS: HBSAG SCREEN Negative (Negative); HCV AB 0.2 (0.0-0.9); HEP B CORE AB, TOT Negative (Negative)
[2021-10-30 09:08] LABS: SARS-Cov-2 (COVID-19) PCR, MMC NEGATIVE (NEGATIVE)
[2021-10-30 09:11] LABS: COMPLEMENT C3, SERUM 102 mg/dL (82-167)
[2021-10-30 14:11] LABS: A/G RATIO 0.4 (0.7-1.7); ALBUMIN 1.9 g/dL (2.9-4.4); ALPHA-1-GLOBULIN 0.4 g/dL (0.0-0.4); ALPHA-2-GLOBULIN 0.8 g/dL (0.4-1.0); BETA GLOBULIN 0.8 g/dL (0.7-1.3); M-SPIKE Not Observed g/dL (Not Observed); PROTEIN, TOTAL, SERUM 6.9 g/dL (6.0-8.5)
--- NOTE | 2021-10-30 16:47 | NUR ---
10/30/21 1647 URIEL CARCAMO History, Chart, Medications and Allergies reviewed before start of procedure.DR TRUJILLO PROVIDES ANESTHESIA SEE RECORDS
[2021-10-30 18:06] LABS: ANTI-DSDNA ANTIBODIES <1 IU/mL (0-9); RNP ANTIBODIES 0.4 AI (0.0-0.9); SJOGREN'S ANTI-SS-A <0.2 AI (0.0-0.9); SJOGREN'S ANTI-SS-B <0.2 AI (0.0-0.9); SMITH ANTIBODIES <0.2 AI (0.0-0.9)
--- NOTE | 2021-10-30 19:14 | NUR ---
SHIFT SUMMARY PATIENT A&OX3. PATIENT DROWSY ALL OF SHIFT ONLY WAKING WHEN WOKEN UP AND WILL QUICKLY FALL BACK ASLEEP. PATIENT IS SLOW TO RESPOND AND WILL FORGET THE TASK AT HAND. HEAVY 2PA TO BSC OR BEDPAN. ON 2L NC. TELE SR. EDEMATOUS T/O. RECEIVED DIALYSIS THIS AM AND RECEIVING 1 UNIT PRBC DURING DIALYSIS. UPPER GI SCOPE DONE LATER IN EVENING. NO BLEEDING FOUND DURING SCOPE. PATIENT NPO MOST OF DAY FOR SCOPE AND VERY LITTLE APPETITE AT DINNER. C/O BACK PAIN, MEDICATED PER JUL. REDNESS UNDER PANNUS, MEDICATED POWDER APPLIED. PATIENT WILL GET URGE TO URINATE WITH VERY LITTLE OUTPUT, BLADDER SCAN SHOWING 0ML. REPORT GIVEN TO ONCOMING RN.
[2021-10-31 05:55] LABS: Albumin, Blood 2.8 g/dL (3.4-5.0); Anion Gap 11 mmol/L (6-16); Blood Urea Nitrogen 43 mg/dL (8-24); Bun/Creatinine Ratio 11.9 (12.0-20.0); CO2, Blood 24 mmol/L (21-32); Calcium, Blood 8.7 mg/dL (8.5-10.1); Chloride, Blood 93 mmol/L (98-108); Creatinine, Blood 3.61 mg/dL (0.40-1.00); Glomerular Filtration Rate 14 (60-); Glucose, Blood 125 mg/dL (70-99); Phosphorus, Blood 6.7 mg/dL (2.5-4.9); Potassium, Blood 4.2 mmol/L (3.5-5.5); Sodium, Blood 128 mmol/L (136-145)
--- NOTE | 2021-10-31 05:55 | NUR ---
SHIFT SUMMARY AOX3-BIRTHDATE, HOSPITAL & FOLLOWING MINIMAL DIRECTIONS. VERY LETHARGIC & DROWSY T/O SHIFT. FALLS ASLEEP BETWEEN QUESTIONS & WHEN ATTEMPTING TO RESPOND. HAS QUIET WHISPER SPEECH. NO S/SX N/V, PAIN OR DYSPNEA. VSS. TELE NSR 80. SPO2 >90% ON 2L O2. MORE AWAKE THIS AM, FOUND DANGLING ON EOB. INCONT/CONT OF URINE. REPOSITIONED PRN. EDEMA T/O BODY, +3 BLE, ELEVATED FEET. CALL LIGHT IN REACH. WILL MONITOR.
[2021-10-31 08:10] LABS: HBSAG SCREEN Negative (Negative); HCV ANTIBODY 0.1 (0.0-0.9); HEP B CORE AB, TOT Negative (Negative)
[2021-10-31 09:10] LABS: Hematocrit 26.9 % (33.0-51.0); Hemoglobin 8.1 g/dL (11.5-16.0)
[2021-10-31 09:10] LABS: HBSAG SCREEN Negative (Negative); HCV AB 0.1 (0.0-0.9); HEP A AB, IGM Negative (Negative); HEP B CORE AB, IGM Negative (Negative)
--- NOTE | 2021-10-31 14:30 | NUR ---
PT TO CT @ THIS TIME, PLAN TO COLLECT POST OP VITALS WHEN RETURNED.
--- NOTE | 2021-10-31 17:35 | NUR ---
SHIFT SUMMARY PT A&O X2-3 AND IN PLEASENT MOOD T/O SHIFT. PT EXTREMLY LETHARGIC T/O SHIFT. SPOUSE @ BEDSIDE DURING SHIFT. PT TO CT FOR SINUSES. ALCIRA COMPLETE THIS SHIFT, VEGITATION REPORTED TO DR. RODRIGUES COMPLETE THIS SHIFT. CALL LIGHT W/IN REACH. HYPOTENSION NOTED T/O SHIFT, MEDICATED PER EMAR. TELE IN PLACE.
--- NOTE | 2021-11-01 02:27 | NUR ---
DESAT/O2 WHILE THIS NURSE WAS ON LUNCH ANOTHER NURSE, MALI Mendoza, MEDICATED FOR PAIN BECAUSE PT REPORTED FEELING UNCOMFORTABLE. THEN OTHER NURSE, CATHY Cantor, FOUND PT c NC OFF & STATED HE COULD NOT GET SPO2 ABOVE 80% & WHEN HE FIRST CAME INTO RM SPO2 @60%. BY THE TIME I CAME INTO RM SPO2 80-84%. RT WAS INFORMED & TOLD CATHY TO PLACE NON-REBREATHER ON. PT TACHYPNIC RR >24, SCATTERED WHEEZES HEARD T/O LOBES c FINE CRACKLES RLL, VERY LABOURED BREATHING. RT CHANGED PT TO HF NC. SPO2 89-92% ON 8L HF NC. BREATHING MORE UNLABOURED NOW. WILL MONITOR.
[2021-11-01 05:32] LABS: BASOPHILS ABSOLUTE AUTO 0.09 K/mm3 (0.00-0.23); BASOPHILS PERCENT AUTO 1 % (0-2); EOSINOPHILS ABSOLUTE AUTO 0.06 K/mm3 (0.00-0.68); EOSINOPHILS PERCENT AUTO 0 % (0-6); Hematocrit 23.7 % (33.0-51.0); Hemoglobin 7.5 g/dL (11.5-16.0); IMMATURE GRAN ABSOLUTE AUTO 0.17 K/mm3 (0.00-0.10); IMMATURE GRAN PERCENT AUTO 1 % (0-1); LYMPHOCYTES ABSOLUTE AUTO 1.02 K/mm3 (0.84-5.20); LYMPHOCYTES PERCENT AUTO 6 % (21-46); MONOCYTES PERCENT AUTO 8 % (4-13); Mean Corpuscular HGB 29.1 pg (26.0-34.0); Mean Corpuscular HGB Conc 31.6 g/dL (31.5-36.5); Mean Corpuscular Volume 92 fL (80-100); NEUTROPHILS ABSOLUTE AUTO 14.04 K/mm3 (1.96-9.15); NEUTROPHILS PERCENT AUTO 84 % (41-73); Platelet Count 79 K/mm3 (150-400); RDW Coefficient Variation 22.7 % (11.7-14.2); RDW Standard Deviation 72.8 fL (35.1-46.3); Red Blood Cell Count 2.58 M/mm3 (3.80-5.20); White Blood Cell Count 16.78 K/mm3 (4.00-11.30)
[2021-11-01 05:54] LABS: Bun/Creatinine Ratio 12.8 (12.0-20.0); Creatinine, Blood 2.98 mg/dL (0.40-1.00)
--- NOTE | 2021-11-01 07:51 | NUR ---
SHIFT SUMMARY AOX2-SELF, HOSPITAL, FOLLOWING MIN DIRECTIONS. PT HAS BEEN MORE CONFUSED & FORGETFUL THIS EVENING COMPARED TO PREVIOUS NIGHT. HELD HS TRAZADONE SINCE PT DROWSY. TELE NSR HR 70. AT 0600 FOUND PT c NC OFF, CHECKED SPO2 ON RA & SPO2 @42%, PLACED NC RIGHT AWAY & INCREASED O2 TO MAX. SPO2 EVENTUALLY MAINTAINED >90% ON 13L O2 HF NC. INFORMED DR JIMENES THAT PT KEPT TAKING CANNULA OFF & NEW INCREASED O2 NEEDS. DR JIMENES ORDERED BREATHING TX, BD PROTOCAL, CONT PULSE OX & 1VIEW CHEST XRAY. WHILE GIVING REPORT TO DAY SHIFT RN, PT HAD AGAIN REMOVED NC & WAS ON RA. SPO2 @62% ON RA, PLACED NC MAXED 02 & SPO2 RECOVERED. PT CURRENTLY ON 13L, MAINTAINS SATS LONG SHE KEEPS CANNULA IN PLACE. REPORTED PAIN & WAS MEDICATED 1X c ULTRAM. CALL LIGHT IN REACH, PT DOESNT USE. BED ALARM IN PLACE.
--- NOTE | 2021-11-01 09:30 | NUR ---
PT ARRIVES TO ICU FROM MEDICAL FLOOR. PT LETHARGIC BUT AWAKENS TO VERBAL STIMULI, ABLE TO STATE NAME AND . PT. ARRIVES WITH PT. PT. ON 10LNC WITH SPO2 94% UPON ARRIVAL. MEDICAL FLOOR RN REPORTS PT HAD BLOODY NOSE THIS AM. O2 PLACED TO HUMIDIFIED AIR. PT SHAKES HEAD NO TO PAIN OR FEELINGS OF SOB. PT. HAS DIALYSIS CATHETER TO RIGHT IJ. SOILED ATTENDS CHANGED WITH TRANSFER TO ICU BED. PT. INCONT. OF URINE. PT. HAS 3+ EDEMA TO LEIGH [place]. DR. RINCON AT BEDSIDE TO EVAL. VSS AT THIS TIME.
[2021-11-01 09:54] LABS: PCO2 Arterial 48.1 mmHg (35-45); PO2 Arterial 62.8 mmHg (80-100); pH Blood Arterial 7.35 (7.35-7.45)
--- NOTE | 2021-11-01 10:48 | NUR ---
SPO2 DROPPING DESPITE INCREASED TITRATION TO 02, DOWN TO 84%. NON REBREATHER PLACED WITH IMMEDIATE RECOVER TO SPO2 100%. PT. HAD BLOODY NOSE PREVIOUSLY TODAY. DR RINCON TO BEDSIDE. PLANS FOR BIPAP.
[2021-11-01 11:27] LABS: Source, Urine Foley catheter
[2021-11-01 11:31] LABS: SARS-Cov-2 (COVID-19) PCR, MMC NEGATIVE (NEGATIVE)
[2021-11-01 11:42] LABS: Appearance, Urine Hazy (Clear); Blood, Urine 1+ (Neg); Color, Urine Yellow (P-Yellow); Glucose Qualitative, Urine Neg (Neg); Ketones, Urine 1+ (Neg); Leukocyte Esterase, Urine 1+ (Neg); Nitrite, Urine Neg (Neg); Protein, Urine 3+ (Neg); Specific Gravity, Urine 1.025 (1.003-1.022); Urobilinogen, Urine 1+ (Normal)
[2021-11-01 12:10] LABS: Bilirubin, Urine 2+ (Neg)
[2021-11-01 12:14] LABS: Squamous Epithelial Cells Mod /hpf (Few)
[2021-11-01 12:15] LABS: Bacteria Mod /hpf
--- NOTE | 2021-11-01 13:33 | NUR ---
UPDATE, PT. RESTING COMFORTABLY ON BIPAP AT THIS TIME. CURRENT SETTINGS, 05/04, 55%. PT. FAMILY REMAINS AT BEDSIDE. SMALL AMT OF DARK YELLOW URINE DRAINING TO GRAVITY. PT. REMAINS LETHARGIC, BUT WILL AWAKEN TO VERBAL STIMULI. ORAL MEDS HELD DUE TO ASPIRATION RISK. VSS AT THIS TIME. CALL LIGHT IN REACH.
--- NOTE | 2021-11-01 17:21 | NUR ---
SHIFT SUMMARY PT. REMAINS LETHARGIC T/O DAY. AWAKENS TO VERBAL STIMULI AND FOLLOWS COMMANDS. PT. ON BIPAP WITH BREAK TO HIGH FLOW NC. POWERGLIDE PLACED TO LEFT UPPER ARM AND MAY CATHETER PLACED TODAY, DRAINING TO GRAVITY. DIALYSIS THIS PM. FAMILY REMAINS AT BEDSIDE T/O DAY. VSS AT THIS TIME. REPORT TO ONCOMING RN.
--- NOTE | 2021-11-01 20:42 | NUR ---
PATIENT AWAKENS TO VERBAL STIMULI, ANSWERING SIMPLE QUESTIONS, FALLING TO SLEEP EASILY WHEN UNDISTURBED. OXYGEN 6L/NC IN PLACE AND TITRATING NEEDED. BIPAP IN ROOM IF NEEDED. PLAN FOR DIALYSIS TOMORROW PER DOCTOR AUGUSTIN.
--- NOTE | 2021-11-01 21:54 | NUR ---
PATIENT AWAKE, BERTRAND PO MEDICATIONS WITHOUT DIFFICULTY. ASSISTING WITH REPOSITIONING IN BED BUT GENERALIZED WEAKNESS CONTINUES. RED AREA UNDER PANUS MEDICATED WITH MEDICATED POWDER AFTER BEING CLEANSED
[2021-11-02 04:03] LABS: Base Excess Venous 0.9 mmol/L; Bicarbonate Venous 25.3 mmol/L (24.0-30.0); PCO2 Venous 36.7 mmHg (38-42); PO2 Venous 135 mmHg (38-42); pH Blood Venous 7.44 (7.34-7.37)
[2021-11-02 04:21] LABS: BASOPHILS ABSOLUTE AUTO 0.07 K/mm3 (0.00-0.23); BASOPHILS PERCENT AUTO 1 % (0-2); EOSINOPHILS ABSOLUTE AUTO 0.16 K/mm3 (0.00-0.68); EOSINOPHILS PERCENT AUTO 1 % (0-6); Hematocrit 23.8 % (33.0-51.0); Hemoglobin 7.2 g/dL (11.5-16.0); IMMATURE GRAN ABSOLUTE AUTO 0.13 K/mm3 (0.00-0.10); IMMATURE GRAN PERCENT AUTO 1 % (0-1); LYMPHOCYTES ABSOLUTE AUTO 1.37 K/mm3 (0.84-5.20); LYMPHOCYTES PERCENT AUTO 11 % (21-46); MONOCYTES ABSOLUTE AUTO 1.02 K/mm3 (0.16-1.47); MONOCYTES PERCENT AUTO 8 % (4-13); Mean Corpuscular HGB 28.5 pg (26.0-34.0); Mean Corpuscular HGB Conc 30.3 g/dL (31.5-36.5); Mean Corpuscular Volume 94 fL (80-100); Mean Platelet Volume 10.4 fL (9.1-12.4); NEUTROPHILS ABSOLUTE AUTO 9.87 K/mm3 (1.96-9.15); NEUTROPHILS PERCENT AUTO 78 % (41-73); Platelet Count 90 K/mm3 (150-400); RDW Coefficient Variation 23.3 % (11.7-14.2); RDW Standard Deviation 78.2 fL (35.1-46.3); Red Blood Cell Count 2.53 M/mm3 (3.80-5.20); White Blood Cell Count 12.62 K/mm3 (4.00-11.30)
[2021-11-02 04:25] LABS: Albumin, Blood 2.4 g/dL (3.4-5.0); Albumin/Globulin Ratio 0.5 (0.8-1.8); Bilirubin, Total 1.5 mg/dL (0.1-1.0); Bun/Creatinine Ratio 11.1 (12.0-20.0); Creatinine, Blood 3.25 mg/dL (0.40-1.00); Globulin, Blood 5.2 g/dL (2.2-4.0); Phosphorus, Blood 5.7 mg/dL (2.5-4.9); Potassium, Blood 4.3 mmol/L (3.5-5.5); Total Protein, Blood 7.6 g/dL (6.4-8.2)
--- NOTE | 2021-11-02 05:59 | NUR ---
SUMMARY PATIENT MORE AWAKE THIS MORNING, SLIGHTLY RESTLESS. NEEDING FREQUENT REMINDING TO NOT TAKE OXYGEN OUT OF HER NOSE AND TO LEAVE IT IN BOTH NOSTRILS. PATIENT CONTINUES TO REMOVE OXYGEN FROM LEFT NARE. SLIGHT NOSE BLEED TO LEFT NARE AFTER PATIENT BLOWING NOSE AND CONTINUALLY PICKING AT LEFT NARE DESPITE FREQUENT REMINDERS TO LEAVE CLOT IN PLACE TO PREVENT ANOTHER NOSE BLEED. OXYGEN TITRATED DOWN TO 4L/NC. BIPAP REMAINING OFF T/O NIGHT. PATIENT CONTINUES TO BE SOB WITH SLIGHT ACTIVITY.
--- NOTE | 2021-11-02 08:05 | NUR ---
SHALLOW RAPID BREATHES, DIAPHORETIC, TO HAVE DIALYSIS THIS AM AT 0830, CONSULTS FOR JAILYN AND MICHAEL CALLED, AT BEDSIDE HELPFUL, INCREASED NC TO 6L O2, SATS 86-89%, SATS NOW 89%, WILL NOTIFIY RT, CALL LIGHT WITH IN REACH, PATIENT CONITNUES TO SCRATCH AT NOSE AND TRIALYSIS CATHETER ON RIGHT NECK, WCTM
--- NOTE | 2021-11-02 08:34 | NUR ---
DR NENA HENAO, ROUNDED[facility], ORDERED LASIX 80 MG BID TO MONITOR PATIENTS URINE RESPONSE, URINE CREATIIE AND SODIUM SENT, REPORTED SATS 86-89% ON 5L HIGHFLOW TO RT, RT WAS FINE WITH JUST INCREASING THE HIGHFLOW, SATS NOW AT 94% ON 8L HIGHFLOW
--- NOTE | 2021-11-02 09:08 | NUR ---
DIALYSIS RUNNING IN ROOM NOW, POOR APPETITE, VERY WEAK, MEDICATED WITH LASIX
[2021-11-02 12:08] LABS: M-SPIKE, % Not Observed % (Not Observed); PROTEIN,TOTAL,URINE 123.9 mg/dL (Not Estab.)
[2021-11-02 14:08] LABS: ACTIN (SMOOTH MUSCLE) ANTIBODY 13 Units (0-19); MITOCHONDRIAL (M2) ANTIBODY <20.0 Units (0.0-20.0)
--- NOTE | 2021-11-02 14:53 | NUR ---
DR RAMIREZ ROUNDED ON PAITENT REPORTED TO FAMILY, DR KYLE IN ROOM NOW WITH FAMILY, WCTM
--- NOTE | 2021-11-02 17:20 | NUR ---
PATIENT AWAKE, FLAT EFFECT, MINIMAL INTERACTIONS, FORGETFUL, CONTINUES TO PICK AT NOSE AND TRIALYSIS CATHETER ON THE RIGHT NECK, AT BEDSIDE HELPFUL WITH CARE. SHALLOW RAPID RESPIRATIONS 25-30, 8L O2 VIA HFNC, SATS 91%, HELD MIDODRINE TODAY, SBP 120-190S, BP NOW 167/150, MEDICATED WITH ATARAX FOR ANXIETY. MAY TO GRAVITY, EPISTAXIS STOPPED BLEEDING, REPORTED TO DR GLASER, DR GLASER TO ROUND ON PATIENT TOMORROW. DR RODRIGUEZ TO ONLY FOLLOW UP IF NEEDED OR BLEEDING RESTARTS, DIALYSIS TODAY 3.2 LITERS OFF, CALL LIGHT WITH IN REACH, TM
--- NOTE | 2021-11-02 19:30 | NUR ---
PATIENT AWAKE AND RESTLESS, HANGING RIGHT LEG OUT OF BED. "I'M COMFORTABLE THIS WAY" A&O X3 YET NEEDING REMINDING TO KEEP OXYGEN IN PLACE AND TO NOT PULL AT DIALYSIS CATH TO HER RIGHT IJ. PATIENT SOB WITH ACTIVITY OXYGEN 8L/NC. GENERALIZED WEAKNESS CONTINUES.
--- NOTE | 2021-11-02 21:00 | NUR ---
PATIENT REPOSITIONED WITH CEILING LIFT. BERTRAND PO MEDICATIONS WITHOUT DIFFICULTY. CONTINUES ON 8L/NC. RIGHT IJ DIALYSIS LINE SECURED WITH BLUE SILICONE TAPE TO HELP PATIENT TO REMEMBER TO NOT PULL ON OR ITCH AT THE LINE. PATIENT MEDICATED WITH ULTRAM FOR GENERALIZED AND BACK PAIN.
--- NOTE | 2021-11-03 03:49 | NUR ---
PATIENT BECOMING MORE RESTLESS AFTER ATARAX GIVEN. PATIENT RESP HIGH 20'S AND UNABLE TO LAY STILL. PATIENT UNSURE OF WHY FEELING RESTLESS, DENIES PAIN. BIPAP PLACED 12/6 FIO2 50% PATIENT VERBALIZED UNDERSTANDING OF WHY PUTTING BIPAP ON YET CONTINUES TO PULL OFF BIPAP. DOCTOR KYLE CALLED AND NOTIFIED ORDER FOR ATIVAN AND RESTRAINTS.
--- NOTE | 2021-11-03 04:35 | NUR ---
PATIENT NOW MORE RELAXED WITH BIPAP IN PLACE. RESP 20. BIOX 94% BILAT WRIST RESTRAINTS CONTINUED
--- NOTE | 2021-11-03 06:02 | NUR ---
SUMMARY PATIENT RESTING QUIETLY WITH BIPAP IN PLACE PRESSURES CHANGED BY RT TO 14/8 FIO2 50% LUNG SOUNDS CONTINUE TO BE DECREASED BASES. MAY DRAINING SMALL AMT OF DARK ZOFIA/TEA COLOR URINE. DIALYSIS CATH TO RIGHT IJ LESS IRRITATING FOR PATIENT WITH BEING REINFORCED WITH BLUE SILICONE TAPE TO KEEP IT CONTAINED. BILAT WRIST RESTRAINTS IN PLACE TO KEEP BIPAP IN PLACE.
[2021-11-03 07:28] LABS: Albumin, Blood 2.3 g/dL (3.4-5.0); Anion Gap 9 mmol/L (6-16); Blood Urea Nitrogen 37 mg/dL (8-24); CO2, Blood 26 mmol/L (21-32); Calcium, Blood 8.7 mg/dL (8.5-10.1); Chloride, Blood 99 mmol/L (98-108); Creatinine, Blood 2.85 mg/dL (0.40-1.00); Glomerular Filtration Rate 19 (60-); Glucose, Blood 118 mg/dL (70-99); Phosphorus, Blood 5.2 mg/dL (2.5-4.9); Potassium, Blood 4.2 mmol/L (3.5-5.5); Sodium, Blood 134 mmol/L (136-145)
--- NOTE | 2021-11-03 11:58 | NUR ---
UPDATE PT SLEEPING HEAVILY, WAKES TO TOUCH, OPENS EYES BRIEFLY THEN GOES BACK TO SLEEP. VSS. SPO2 > 90% ON BIPAP: 11/01, FIO2 50%, TRANSITIONED TO 8L HI-ROSEANN NC @ APPROX 1145. MONITOR SHOWING SR, HR 70's-80's. DIALYSIS DONE IN PT RM THIS AM, NOW COMPLETE. PO MEDICATIONS NOT YET GIVEN D/T PT INABILITY TO KEEP EYES OPEN LONGER THAN A FEW SECONDS OR FOLLOW COMMANDS FOR OPENING MOUTH FOR ORAL CARE. LEIGH GONZALEZ DC'd THIS AM. FAMILY AT BEDSIDE.
--- NOTE | 2021-11-03 18:26 | NUR ---
SHIFT SUMMARY PT PCU STATUS. PT SLEEPING T/O DAY, OPENING EYES FOR ONLY SHORT MOMENTS AT A TIME. PT UNABLE TO REMAIN AWAKE LONG ENOUGH FOR SAFE PO INTAKE THIS SHIFT. UNABLE TO ASSESS PT ORIENTATION THIS SHIFT. BILAT SWR DC'd THIS AM, PT NOT PULLING AT LINES/TUBES THIS SHIFT. PT VSS. MONITOR SHOWING SR, HR 70's-80's. SPO2 > 90% ON BIPAP: 11/01, FIO2 50%, TRANSITIONED TO 8L HI-ROSEANN NC & ABLE TO BE TITRATED DOWN TO 4L NC THIS SHIFT. TEMP MAY PATENT & DRAINING MINIMAL DARK YELLOW URINE.
--- NOTE | 2021-11-03 19:29 | NUR ---
TRANSFER TO PCU REPORT GIVEN TO ACCEPTING PCU POULTRY HATCHERY LABORER RN. PT TRANSFERED FROM ICU-12 TO PCU-01 BY BED W/ BELONGINGS ON 4L NC @ APPROX 1920.
[2021-11-04 04:04] LABS: BASOPHILS ABSOLUTE AUTO 0.09 K/mm3 (0.00-0.23); BASOPHILS PERCENT AUTO 1 % (0-2); EOSINOPHILS ABSOLUTE AUTO 0.12 K/mm3 (0.00-0.68); EOSINOPHILS PERCENT AUTO 1 % (0-6); Hematocrit 23.2 % (33.0-51.0); IMMATURE GRAN ABSOLUTE AUTO 0.07 K/mm3 (0.00-0.10); IMMATURE GRAN PERCENT AUTO 1 % (0-1); LYMPHOCYTES ABSOLUTE AUTO 1.54 K/mm3 (0.84-5.20); LYMPHOCYTES PERCENT AUTO 15 % (21-46); MONOCYTES ABSOLUTE AUTO 0.83 K/mm3 (0.16-1.47); MONOCYTES PERCENT AUTO 8 % (4-13); Mean Corpuscular HGB 28.9 pg (26.0-34.0); Mean Corpuscular HGB Conc 30.2 g/dL (31.5-36.5); Mean Corpuscular Volume 96 fL (80-100); Mean Platelet Volume 9.8 fL (9.1-12.4); NEUTROPHILS ABSOLUTE AUTO 7.44 K/mm3 (1.96-9.15); NEUTROPHILS PERCENT AUTO 74 % (41-73); Platelet Count 94 K/mm3 (150-400); RDW Coefficient Variation 23.5 % (11.7-14.2); RDW Standard Deviation 79.5 fL (35.1-46.3); Red Blood Cell Count 2.42 M/mm3 (3.80-5.20); White Blood Cell Count 10.09 K/mm3 (4.00-11.30)
[2021-11-04 04:20] LABS: Albumin, Blood 2.3 g/dL (3.4-5.0); Anion Gap 10 mmol/L (6-16); Blood Urea Nitrogen 47 mg/dL (8-24); Bun/Creatinine Ratio 11.9 (12.0-20.0); CO2, Blood 25 mmol/L (21-32); Calcium, Blood 8.7 mg/dL (8.5-10.1); Chloride, Blood 100 mmol/L (98-108); Creatinine, Blood 3.95 mg/dL (0.40-1.00); Glomerular Filtration Rate 13 (60-); Glucose, Blood 107 mg/dL (70-99); Phosphorus, Blood 5.6 mg/dL (2.5-4.9); Potassium, Blood 4.1 mmol/L (3.5-5.5); Sodium, Blood 135 mmol/L (136-145)
--- NOTE | 2021-11-04 05:48 | NUR ---
SHIFT SUMMARY PT WAS XFERRED FROM ICU TO PCU VIA ICU BED AT START OF SHIFT. PT WAS SLID BY 4 STAFF FROM ICU BED TO PCU BED. PT DROWSY BUT AROUSABLE. CONFUSED. ABLE TO SWALLOW PILLS WITH APPLESAUCE. SP02>5L HUMIDIFIED HI ROSEANN, CPAP AT NOC 14 CM 40% FI02. TELEMETRY SHOWS NSR MOSTLY 80'S. PT HAS TEMP MAY THAT DRAINED MINIMAL URINE TO GRAVITY. NO BM THIS SHIFT. PT TOOK CPAP OFF OFTEN DURING SHIFT, WOULD DESAT TO 70'S. PT CONINUALLY REDIRECTED AND CPAP REAPPLIED. CALL PLACED TO MD JIMENES. MD JIMENES W/ ORDERS FOR ATIVAN Q2, WHICH DECREASED MASK PULLING BUT DID NOT ELIMINATE. PT REPOSITIONED Q2H. ORAL CARE DONE, PT BIT FREQUENTLY AT THE SUCTION PROBE. PT'S HGB RESULTED 7.0 THIS AM LABS. CALL PLACED TO MD JIMENES. MD JIMENES W/ ORDERS FOR 1 UNIT PRBC DURING DIALYSIS TODAY AND TO CALL PT'S DIRECTOR GLOBAL STRATEGIC PUBLISHER SALES TO NOTIFY AT 0700 AM. CALL LIGHT IN REACH.
[2021-11-04 14:34] LABS: Hematocrit 24.4 % (33.0-51.0); Hemoglobin 7.7 g/dL (11.5-16.0)
--- NOTE | 2021-11-04 18:05 | NUR ---
SHIFT SUMMARY PT LETHARGIC T/O SHIFT, OPENING EYES BRIEFLY WHEN SPOKEN TO. 1 UNIT OF BLOOD GIVEN W/ DIALYSIS THIS AM. PT BP LOW DURING DIALYSIS, IMPROVED W/ UNIT OF BLOOD (SEE VS). PT WAKING UP MORE THIS EVENING, SAYING WORDS & OPENING MOUTH MORE FOR ORAL CARE, THOUGH PT STILL BITING DOWN ON SUCTION SWABS. SMALL AMOUNTS OF DRIED BLOOD CLEANED FROM MOUTH DURING ORAL CARE T/O SHIFT. TEMP MAY CATH PATENT & DRAINING SMALL AMOUNT OF DARK YELLOW URINE. PT WEARING 4-5L NC T/O DAY. MONITOR SHOWING SR, HR 60s-90s. PT FAMILY AT BEDSIDE.
[2021-11-05 04:05] LABS: BASOPHILS ABSOLUTE AUTO 0.09 K/mm3 (0.00-0.23); BASOPHILS PERCENT AUTO 1 % (0-2); EOSINOPHILS ABSOLUTE AUTO 0.14 K/mm3 (0.00-0.68); EOSINOPHILS PERCENT AUTO 1 % (0-6); Hematocrit 25.6 % (33.0-51.0); IMMATURE GRAN ABSOLUTE AUTO 0.07 K/mm3 (0.00-0.10); IMMATURE GRAN PERCENT AUTO 1 % (0-1); LYMPHOCYTES ABSOLUTE AUTO 1.87 K/mm3 (0.84-5.20); LYMPHOCYTES PERCENT AUTO 15 % (21-46); MONOCYTES ABSOLUTE AUTO 1.03 K/mm3 (0.16-1.47); MONOCYTES PERCENT AUTO 8 % (4-13); Mean Corpuscular HGB 29.2 pg (26.0-34.0); Mean Corpuscular HGB Conc 31.3 g/dL (31.5-36.5); Mean Corpuscular Volume 93 fL (80-100); Mean Platelet Volume 9.9 fL (9.1-12.4); NEUTROPHILS ABSOLUTE AUTO 9.34 K/mm3 (1.96-9.15); NEUTROPHILS PERCENT AUTO 75 % (41-73); Platelet Count 101 K/mm3 (150-400); RDW Coefficient Variation 22.8 % (11.7-14.2); RDW Standard Deviation 74.6 fL (35.1-46.3); Red Blood Cell Count 2.74 M/mm3 (3.80-5.20); White Blood Cell Count 12.54 K/mm3 (4.00-11.30)
--- NOTE | 2021-11-05 04:21 | NUR ---
PT UPDATE KEPT PT ON NC UNTIL APPROX 0200 TO AVOID GIVING ATIVAN. PT BEGAN TO INCREASE OXYGEN NEEDS UP TO 12L HI FLOW, LABORED BREATHING, TACHYPNIC IN THE 30'S. RT CALLED. RT PLACEDC PT ON BIPAP. PT REMOVED BIPAP EVERY FEW MINTUTES FOR APPROX AN HOUR BEFORE RN GAVE ATIVAN PER EMAR TO HELP PT WITH BREATHING AND KEEPING FROM PULLING OFF MASK. WHEN PT PULLS OF MASK, DESATS TO LOW 70'S, ONE TIME 66. PT CURRENTLY IN ROOM, WEARING MASK, RESPIRATIONS 28-MID 30'S, SP02>90%, SHALLOW BREATHING.
[2021-11-05 04:22] LABS: Albumin, Blood 2.5 g/dL (3.4-5.0); Albumin/Globulin Ratio 0.4 (0.8-1.8); Bilirubin, Total 1.6 mg/dL (0.1-1.0); Bun/Creatinine Ratio 12.5 (12.0-20.0); Calcium, Blood 8.9 mg/dL (8.5-10.1); Creatinine, Blood 2.64 mg/dL (0.40-1.00); Globulin, Blood 5.8 g/dL (2.2-4.0); Potassium, Blood 3.5 mmol/L (3.5-5.5); Total Protein, Blood 8.3 g/dL (6.4-8.2)
[2021-11-05 04:46] LABS: PCO2 Arterial 42.5 mmHg (35-45); PO2 Arterial 63.2 mmHg (80-100); pH Blood Arterial 7.45 (7.35-7.45)
--- NOTE | 2021-11-05 05:09 | NUR ---
PT UPDATE RT IN ROOM TO DO ABG. ABG CO2 AND PH RESULTED WNL. PT CONTINUES TO REMOVE MASK, DESATS TO 70'S. STAFF IN ROOM FREQUENTLY. CALL PLACED TO MD NINO. MD NINO W/ ORDERS FOR TRANSFER TO ICU W/ PRECEDEX.
--- NOTE | 2021-11-05 05:14 | NUR ---
ATIVAN PT INCREASING IN RESPIRATIONS AND WOB T/O THE NIGHT. INCREASED FROM 4L TO 12L. BIPAP PLACED ON PT. IT WAS NOTED THAT DAY SHIFT HOSPITALIST CAUTIONED AGAINST ATIVAN USE DUE TO PT'S LETHARGY. PT CONTINUES TO DESAT DOWN TO 70'S/80'S SPO2 WHEN PT TEARS MASK OFF. DECISION MADE TO ADMINISTER ATIVAN.
--- NOTE | 2021-11-05 06:12 | NUR ---
ASSUMED PT CARE FROM LION ARREDONDO PT ARRIVED ON UNIT AT 0545 D/T INCREASED WORK OF BREATHING AND PT NOT TOLERATING CPAP. PT ARRIVED ON 15L HIFLOW NC WITH OXYGEN SATURATIONS >90%. PT ALERT TO SELF, PLACE, AND CITY; CONFUSED AND FORGETFUL. BELIEVES SHE IS HERE FOR "LARYNGITIS". LUNG SOUNDS HAVE CRACKLES NOTED T/O ALL LOBES, RESP RATE 30'S. PT STARTED ON PRECEDEX AT 0.2MCG/KG/HR AND BILATERAL SOFT WRIST RESTRAINTS PLACED D/T PT PULLING AT LINES/CORDS. PT HAS GENERALIZED EDEMA; +1 SACRAL/THIGH EDEMA, WELL BILATERAL ANKLES. PT HAS A TRIALYSIS CATHETER TO RIGHT IJ. POWERGLIDE TO GAMAL. MAY CATHETER IS PATENT AND DRAINING MINIMAL AMOUNTS OF DARK YELLOW URINE TO GRAVITY. WILL CONTINUE TO MONITOR UNTIL REPORT IS HANDED OFF TO ONCOMING RN
--- NOTE | 2021-11-05 07:51 | NUR ---
[place] of Care: Care assumed at 0700hr. Patient sleeping, currently on precedex gtt at 0.4mcg/kg/hr. Opens eyes to verbal stimuli, attempted to mouth words, followed commands to squeeze and move feet. Precedex gtt decreased to 02.mcg/kg/hr. On BiPAP/AVAPS at 40%, spO2-92-95%. Mask removed and placed on 6L/Hi-flow NC, spO2 remained at 92%, but work of breathing increased without BiPAP mask. Then placed back on BiPAP mask, tolerating without difficulty. All VSS. Attempted oral care but patient bites down on suction swab. Trialysis catheter to rt IJ, central line port patent and intact (manufacturing design engineer to assess and flush dialysis ports today). Powerglide to GAMAL patent and intact. Dr. Esteban to room shortly after shift change. Informed of his plan to administer dialysis this morning, before patient receives perma-cath placement with Dr. Campoverde this afternoon. Plan to hold all PO intake r/t work of breathing and risk for aspiration. Will continue to monitor.
[2021-11-05 15:24] LABS: PCO2 Arterial 41.9 mmHg (35-45); PO2 Arterial 89.6 mmHg (80-100); pH Blood Arterial 7.46 (7.35-7.45)
--- NOTE | 2021-11-05 18:09 | NUR ---
Shift Summary: Patient remains on CPAP mask at 14/40% throughout majority of shift. Tolerates short breaks from CPAP mask, maintaining spO2, but work of breathing increases. Patient appears calm and comfortable while on CPAP mask. SpO2-92-95%. Received hemodialysis this morning at bedside, tolerated without difficulty, VS remained stable. Then transported to for perma-cath placement with Dr. Campoverde. Patient remained on CPAP mask during procedure. Trialysis to RT IJ removed and site sutured by Dr. Campoverde in pie bakery laborer. RT IJ site cleansed with chlorahexadine and covered with CHG dressing upon return to room. HC nurse reported no medications administered during procedure. Precedex gtt turned off (from 0.2mcg/kg/hr) early afternoon as patient became very difficulty to rouse, only grimacing to sternal rub. BP also decrease to systolic in the 80's, MAP-50's. Dr. Palmer contacted, received orders for ABG, levophed gtt, and 1L NS bolus. Also discussed possible intubation with Dr. Palmer r/t concern for airway protection. Intubation held as patient maintained adequate tidal volumes and spO2. ABG results unremarkable. 1L bolus ineffective and levophed gtt started at 2mcg/min, titrated up to 4mcg/min late this shift. Systolic BP now low 100's, MAP's 60's. Patient's neurological status also improved. Patient now rousing to verbal stimuli, and following simple commands to squeeze hands, move extremities. Remains lethargic and only sleeping when not stimulated. Call out to Dr. Palmer at this time r/t lack of urine output and to inform him patient remains and levophed gtt following NS bolus.
--- NOTE | 2021-11-05 19:00 | NUR ---
ASSUMED CARE OF PATIENT, SHE IS ON CPAP 14/40%, SHE OPENS EYES TO VOICE, FOLLOWS COMMANDS, RETURNS TO SLEEP. LUNGS DIMINISHED T/O, ABDOMEN DISTENDED, FIRM, NO BOWEL SOUNDS HEARD, MAY WITH NO URINE OUTPUT, LEGS WITH SCD'S IN PLACE AND WIGGLING THEM HERSELF, C/O BEING HOT, BLANKETS REMOVED. FEET WITH GOOD PULSES COLOR AND WARMTH. NOREPI @ 4MCG/MIN, NS @ 10ML, PICC TO GAMAL, BLOODY DRAINAGE UNDER DRESSING.
--- NOTE | 2021-11-05 21:00 | NUR ---
PT RESTLESS AND FORGETFUL, PULLING OFF HER CPAP, SOFT RESTRAINTS FOR REMINDER TO LEAVE THEM ON.
--- NOTE | 2021-11-05 21:30 | NUR ---
HS MEDS DUE, PT CHANGED TO NASAL CANNULA, SIP OF WATER GIVEN WHICH ILLICITED A SMALL COUGHING SPELL. TOOK ANOTHER SIP, TOLERATED WELL, TOOK HER TRAZADONE AND OPTED TO NOT TAKE THE VITAMIN. SATS DOWN TO HI 80'S, CPAP RETURNED WITH INSTRUCTIONS TO WHY TO THE PATIENT.
--- NOTE | 2021-11-06 02:10 | NUR ---
PT RESTLESS AND BREATHING RATE INCREASING, ATIVAN GIVEN WITH NO RELIEF, PRECEDEX RESTARTED FOR PATIENT COMFORT. ORAL CARE COMPLETED WITH USE OF DEMARCO- PORT ACCESS DEVICE PATIENT WAS DROPPING TO LOW 80S WITH MASK REMOVED FOR ORAL CARE.
[2021-11-06 04:18] LABS: BASOPHILS PERCENT AUTO 1 % (0-2); EOSINOPHILS ABSOLUTE AUTO 0.13 K/mm3 (0.00-0.68); EOSINOPHILS PERCENT AUTO 1 % (0-6); Hemoglobin 6.8 g/dL (11.5-16.0); IMMATURE GRAN ABSOLUTE AUTO 0.03 K/mm3 (0.00-0.10); IMMATURE GRAN PERCENT AUTO 0 % (0-1); LYMPHOCYTES ABSOLUTE AUTO 1.53 K/mm3 (0.84-5.20); LYMPHOCYTES PERCENT AUTO 16 % (21-46); MONOCYTES ABSOLUTE AUTO 0.71 K/mm3 (0.16-1.47); MONOCYTES PERCENT AUTO 8 % (4-13); Mean Corpuscular HGB 28.9 pg (26.0-34.0); Mean Corpuscular HGB Conc 30.9 g/dL (31.5-36.5); Mean Corpuscular Volume 94 fL (80-100); Mean Platelet Volume 10.1 fL (9.1-12.4); NEUTROPHILS ABSOLUTE AUTO 6.94 K/mm3 (1.96-9.15); NEUTROPHILS PERCENT AUTO 74 % (41-73); Platelet Count 88 K/mm3 (150-400); RDW Coefficient Variation 23.4 % (11.7-14.2); Red Blood Cell Count 2.35 M/mm3 (3.80-5.20); White Blood Cell Count 9.44 K/mm3 (4.00-11.30)
[2021-11-06 04:39] LABS: Albumin, Blood 2.7 g/dL (3.4-5.0); Anion Gap 9 mmol/L (6-16); Blood Urea Nitrogen 44 mg/dL (8-24); Bun/Creatinine Ratio 11.9 (12.0-20.0); CO2, Blood 27 mmol/L (21-32); Calcium, Blood 8.9 mg/dL (8.5-10.1); Chloride, Blood 98 mmol/L (98-108); Glomerular Filtration Rate 14 (60-); Glucose, Blood 118 mg/dL (70-99); Phosphorus, Blood 4.7 mg/dL (2.5-4.9); Potassium, Blood 3.5 mmol/L (3.5-5.5); Sodium, Blood 134 mmol/L (136-145)
--- NOTE | 2021-11-06 05:57 | NUR ---
VIPIN HAS BEEN ON THE CPAP 14/40% THROUGHOUT THE SHIFT. HER BREATHING IS LABORED AND WORK OF BREATHING INCREASES WHEN MASK IS OFF. SHE GETS VERY SOB AND SATS DROP TO LOW 80'S. THEREFORE THE REMAINDER OF ORAL CARE DONE WITH NILAM MENDOZA. PRECEDEX ON @ 0.4 MCG/KG/HR FOR PT TOLERANCE. NOREPI HAS BEEN TITRATED T/O THE NIGHT TO MAINTAIN MAP >65. SCD'S IN PLACE. HAD THE SIP OF WATER AND MED AT HS, DID COUGH AFTER FIRST SIP OF WATER. MAY WITH <50ML OUT THIS SHIFT.
--- NOTE | 2021-11-06 07:23 | NUR ---
TOOK OVER CARE OF PT AT 0705, PT ON 4 OF LEVO AND .4 OF PRECEDEX INFUSIONS. RESTING ON CPAP
[2021-11-06 10:31] LABS: Vancomycin, Random 18.4 ug/mL
[2021-11-06 12:53] LABS: Hematocrit 25.9 % (33.0-51.0); Hemoglobin 8.1 g/dL (11.5-16.0)
--- NOTE | 2021-11-06 16:27 | NUR ---
SUMMARY NEURO: A/O X3, PT UNSURE OF DAY. REORIENTED. RT SIDE OF MOUTH ASSYMETRICAL AT BASELINE. EQUAL STRENGTH THROUGHOUT OTHERWISE. GENERALIZED WEAKNESS. LUNGS: RU LOBE FINE CRACKLES, NO CREPETIS FELT AROUND DIALYSIS CATHETER. DIMINISHED BUT CLEAR ELSEWHERE. PT ON CPAP AT NIGHT, WAS THEN PLACED ON HFNC AT 6L UNTIL AROUND 2PM, PT THEN REQUIRED 10L AFTER THERAPY. PT WAS PLACED BACK ON CPAP AROUND 3PM DUE TO INCREASED WORK OF BREATHING. CXR COMPLETED SKIN; EXCORIATION AROUND GROIN AREA, SMALL PURPLE BRUISE NEAR COCCYX, MEPILEX PLACED. BRUISING SCATTERED. GI: TWO VERY SMALL HARD BM'S THAT WERE COVERED IN MUCOUS, DR. CAMARA NOTIFIED. M.O.M, COLACE, SENNA, AND FLEETS ENEMA WERE GIVEN. ; SCANT ZOFIA URINE, NO HD TODAY, WILL TRANSITION TO EVERY OTHER PER DR. AUGUSTIN. PER RADIO MECHANIC APPRENTICE, PT HAS BEEN ACCEPTED FOR OUTPATIENT DIALYSIS ON ,, SCHEDULE. HEMAGLOBIN THIS MORNING WAS 6.8, ONE UNIT PRBC'S TRANSFUSED, REPEAT H&H SHOWED HEMAGLOBIN OF 8.1. PLATELETS WERE 88. PRECEDEX TITRATED OFF, RESTRAINTS REMOVED, LEVO STOPPED WHILE PT ON HFNC. PT STOOD UP TWICE WITH THEREAPY AND WAS ABLE TO STAND AND PIVOT FOR THE BEDSIDE COMMODE, PT THEN WORKED WITH SPEECH THERAPY AND PLACED ON PUREED DIET DUE TO PT HAVING TROUBLE CHEWING PEACHES COMPLETELY. PT TOO FATIGUED AT THAT POINT TO STAND AND PIVOT TO BACK BED REQUESTED BY PT, PT THEN FELL ASLEEP ONCE PLACED BACK ON BIPAP, BACK IN BED. PT WAS UP IN CHAIR FOR ABOUT FOUR HOURS TODAY.
--- NOTE | 2021-11-06 19:34 | NUR ---
ASSUMED PT CARE FROM [facility] HONG PT LYING IN BED WITH CPAP IN PLACE WITH EPAP 14; FIO2 40%, RR UPPER 20'S. PT VERY SOB WITH ANY EXERTION AND EVEN AT REST. ALERT AND ORIENTED X4, BUT TENDS TO GET CONFUSED AND FORGETFUL AT TIMES. PERMACATH TO RIGHT UPPER CHEST WALL. DRESSING TO OLD TRIALYSIS SITE TO R SIDE OF NECK. PICC TO MARIELA. MIDLINE TO GAMAL. PT IS SALINE LOCKED AT THIS TIME. LUNG SOUNDS NOTED TO HAVE CRACKLES TO BILATERAL UPPER LOBES AND DIMINISHED TO BILATERAL LOWER LOBES. NSR WITH HR 70-80'S. ABDOMEN IS ROUND WITH HYPERACTIVE BTX4. PT HAD AN X-LARGE LOOSE BM REQUIRING A LINEN CHANGE. TEMP MAY CATHETER IS PATENT AND DRAINING DARK ZOFIA COLORED URINE TO GRAVITY. SEE SHIFT ASSESSMENT FOR FURTHER DETAILS.
[2021-11-07 04:37] LABS: BASOPHILS ABSOLUTE AUTO 0.09 K/mm3 (0.00-0.23); BASOPHILS PERCENT AUTO 1 % (0-2); EOSINOPHILS ABSOLUTE AUTO 0.16 K/mm3 (0.00-0.68); EOSINOPHILS PERCENT AUTO 1 % (0-6); Hematocrit 24.7 % (33.0-51.0); Hemoglobin 7.8 g/dL (11.5-16.0); IMMATURE GRAN ABSOLUTE AUTO 0.05 K/mm3 (0.00-0.10); IMMATURE GRAN PERCENT AUTO 0 % (0-1); LYMPHOCYTES ABSOLUTE AUTO 2.17 K/mm3 (0.84-5.20); LYMPHOCYTES PERCENT AUTO 19 % (21-46); MONOCYTES ABSOLUTE AUTO 0.86 K/mm3 (0.16-1.47); MONOCYTES PERCENT AUTO 8 % (4-13); Mean Corpuscular HGB 29.8 pg (26.0-34.0); Mean Corpuscular HGB Conc 31.6 g/dL (31.5-36.5); Mean Corpuscular Volume 94 fL (80-100); Mean Platelet Volume 10.7 fL (9.1-12.4); NEUTROPHILS ABSOLUTE AUTO 8.02 K/mm3 (1.96-9.15); NEUTROPHILS PERCENT AUTO 71 % (41-73); Platelet Count 84 K/mm3 (150-400); RDW Coefficient Variation 22.7 % (11.7-14.2); RDW Standard Deviation 74.8 fL (35.1-46.3); Red Blood Cell Count 2.62 M/mm3 (3.80-5.20); White Blood Cell Count 11.35 K/mm3 (4.00-11.30)
[2021-11-07 04:53] LABS: Albumin, Blood 2.7 g/dL (3.4-5.0); Anion Gap 10 mmol/L (6-16); Blood Urea Nitrogen 56 mg/dL (8-24); Bun/Creatinine Ratio 12.2 (12.0-20.0); CO2, Blood 27 mmol/L (21-32); Calcium, Blood 9.3 mg/dL (8.5-10.1); Chloride, Blood 98 mmol/L (98-108); Creatinine, Blood 4.58 mg/dL (0.40-1.00); Glomerular Filtration Rate 11 (60-); Glucose, Blood 117 mg/dL (70-99); Phosphorus, Blood 5.3 mg/dL (2.5-4.9); Potassium, Blood 3.6 mmol/L (3.5-5.5); Sodium, Blood 135 mmol/L (136-145)
--- NOTE | 2021-11-07 05:53 | NUR ---
END OF SHIFT SUMMARY PT PLACED BACK ON LOW DOSE PRECEDEX AT 0.2MCG/KG/HR D/T PT CONTINUOUSLY PULLING OF MASK AND SATURATIONS DROPPING TO THE 70'S. PRECEDEX EFFECTIVE IN DECREASING THE AMOUNT OF TIMES PT WAS PULLING OFF MASK. DURING ORAL CARES AND BREAKS PT WAS PLACED ON 10L OF HIFLOW OXYGEN. SHE REMAINS ALERT AND ORIENTED WITH CONFUSION/FORGETFULNESS NOTED AT TIMES. LEVOPHED WAS RESTARTED AT ONE POINT IN THE NIGHT AT 2MCG/MIN, BUT IS CURRENTLY OFF. PT GETS SOB VERY EASILY WITH MINIMAL EXERTION. LUNG SOUNDS REMAIN WITH CRACKLES TO BILATERAL UPPER LOBES AND DIMINISHED TO BILATERAL LOWER LOBES. PT HAS BEEN IN NSR WITH HR 70-80'S. PT HAD TWO LOOSE BM'S THIS SHIFT. MAY CATHETER IS PATENT AND DRAINING MINIMAL AMOUNTS OF TEA COLORED URINE TO GRAVITY; 125CC OUT THIS SHIFT. WILL CONTINUE TO MONITOR UNTIL REPORT IS HANDED OFF TO ONCOMING LION
--- NOTE | 2021-11-07 07:11 | NUR ---
TOOK OVER CARE OF PT AT 0700, PT RESTING ON CPAP 14/50%, LEVO BEING TITRATED, CURRENTLY AT 6, PRECEDEX GTT AT .2
--- NOTE | 2021-11-07 10:44 | NUR ---
PT CHANGED TO BIPAP SETTINGS 10/01 50% BY RT
[2021-11-07 13:28] LABS: Vancomycin, Random 9.6 ug/mL
--- NOTE | 2021-11-07 16:28 | NUR ---
INTUBATION NOTE AT BEDSIDE GIVING ORDERS AND MEDS, THREE RT AT BEDSIDE ASSISTING 1628- 50MG PROPOFOL 1629- 50MG PROPOFOL PUSH 1630- INTUBATION 1632- 50MG PROPOFOL PUSH 1636- 2MG VERSED PUSH 1639- 100MCG FENTANYL PUSH
--- NOTE | 2021-11-07 17:39 | NUR ---
SUMMARY PT HAD INCREASED 02 NEEDS THROUGHOUT THE DAY, EVENTUALLY REACHING 100% ON BIPAP. PT THEN INTUBATBATED AROUND 1630 AND PLACED ON ACVC 14/400/100%/15, PROPOFOL AT 60MCG, PRECEDEX AT .7, LEVO AT 12MCG. PT SATTING 91%, DESATTING INTO 40'S WITH TURNS, ATROPINE AT BEDSIDE. NEURO: A/OX3 PRIOR TO INTUBATION, BASELINE ASSYMETRICAL SMILE PER PT AND . LUNGS: BILAT UPPER LOBES CRACKLES PRIOR TO DIALYSIS, CLEAR/DIMINISHED AFTERWARDS. BLOOD SEEN IN BACK OF THROAT DURING INTUBATION BY . BLOODY SECRETIONS. CARDIAC; PVC'S AND LOW MAP'S WITH TURNS, HR 70'S-80'S, LEVO AT 10. SKIN:EXCORIATION IN GROIN, BLANCHABLE REDNESS ON COCCYX GI; OG PLACED, LIWS, DARK GREEN SECRETIONS. ACTIVE BOWEL SOUNDS, NO BM THIS SHIFT. ; HD COMPLETED TODAY WITH 4L REMOVED, 40ML TOTAL URINE OUTPUT.
[2021-11-07 18:26] LABS: PCO2 Arterial 45.8 mmHg (35-45); PO2 Arterial 73.3 mmHg (80-100); pH Blood Arterial 7.45 (7.35-7.45)
--- NOTE | 2021-11-07 19:57 | NUR ---
ASSUMED PT CARE AT 1900 FROM [facility] PT INTUBATED AND SEDATED. PROPOFOL AT 60MCG/KG/MIN AND PRECEDEX AT 0.6 MCG/KG/HR. PT MINIMALLY RESPONSIVE; THEREFORE, TURNED PROPOFOL DOWN TO 50MCG/KG/MIN. PT HAS A COUGH, NO GAG, BUT A SWALLOW. UPON DEEP SUBGLOTTIC SUCTIONING PT WOULD MOVE RIGHT LEG. VENT SETTINGS AC/VC 14, VT 400, PEEP 15, FIO2 100%, SPO2 96%, RR 22. ETCO2 NOT CONNECTED AT THIS TIME, BUT RESPIRATORY THERAPY IS AWARE WITH PLAN TO CONNECT ETCO2. PT NOTED TO BE NSR WITH AV BLOCK AND OCCASIONAL PVC'S; RATE 60'S. LEVOPHED AT 8MCG/MIN UPON ASSUMPTION OF CARE WITH SBP 150'S; THEREFORE, TURNED DOWN TO 5MCG/MIN WITH GOOD EFFECT. SBP 120'S; LEVOPHED IS CURRENTLY AT 4MCG/MIN. OG IS CONNECTED TO LIS WITH GREEN BILE NOTED IN CANISTER. TEMP MAY IS PATENT AND DRAINING RED/BLOOD TO GRAVITY. TEMP IS 100.9. SEE SHIFT ASSESSMENT FOR FURTHER DETAILS
[2021-11-08 04:42] LABS: BASOPHILS PERCENT AUTO 1 % (0-2); EOSINOPHILS ABSOLUTE AUTO 0.17 K/mm3 (0.00-0.68); EOSINOPHILS PERCENT AUTO 1 % (0-6); Hematocrit 23.5 % (33.0-51.0); Hemoglobin 7.3 g/dL (11.5-16.0); Mean Corpuscular HGB Conc 31.1 g/dL (31.5-36.5); Mean Corpuscular Volume 97 fL (80-100); Mean Platelet Volume 10.9 fL (9.1-12.4); Platelet Count 76 K/mm3 (150-400); RDW Coefficient Variation 23.1 % (11.7-14.2); Red Blood Cell Count 2.43 M/mm3 (3.80-5.20); White Blood Cell Count 14.55 K/mm3 (4.00-11.30)
[2021-11-08 04:51] LABS: IMMATURE GRAN ABSOLUTE AUTO 0.07 K/mm3 (0.00-0.10); IMMATURE GRAN PERCENT AUTO 1 % (0-1); LYMPHOCYTES ABSOLUTE AUTO 2.61 K/mm3 (0.84-5.20); LYMPHOCYTES PERCENT AUTO 18 % (21-46); MONOCYTES ABSOLUTE AUTO 0.98 K/mm3 (0.16-1.47); MONOCYTES PERCENT AUTO 7 % (4-13); NEUTROPHILS ABSOLUTE AUTO 10.62 K/mm3 (1.96-9.15); NEUTROPHILS PERCENT AUTO 73 % (41-73)
[2021-11-08 05:00] LABS: Albumin, Blood 2.5 g/dL (3.4-5.0); Anion Gap 6 mmol/L (6-16); Blood Urea Nitrogen 36 mg/dL (8-24); CO2, Blood 31 mmol/L (21-32); Calcium, Blood 9.3 mg/dL (8.5-10.1); Chloride, Blood 98 mmol/L (98-108); Creatinine, Blood 4.02 mg/dL (0.40-1.00); Glomerular Filtration Rate 13 (60-); Glucose, Blood 134 mg/dL (70-99); Magnesium, Blood 2.3 mg/dL (1.6-2.4); Phosphorus, Blood 4.3 mg/dL (2.5-4.9); Potassium, Blood 3.7 mmol/L (3.5-5.5); Sodium, Blood 135 mmol/L (136-145)
--- NOTE | 2021-11-08 05:25 | NUR ---
END OF SHIFT SUMMARY VENT SETTINGS AC/VC 14, VT 400, PEEP 15, FIO2 85%, SPO2 97%, RR 23, ETCO2 33. PROPOFOL AT 30MCG/KG/MIN. PRECEDEX HAS BEEN OFF MOST OF SHIFT. PT ABLE TO OPEN EYES TO VERBAL STIMULI; HOWEVER, SHE HAS YET TO FOLLOW COMMANDS. COUGH, GAG, AND SWALLOW ALL PRESENT. GROSS EXTREMITY MOTOR MOVEMENT NOTED. PT REMAINS IN AN AV BLOCK WITH RATE 60'S. LEVOPHED AT 6MCG/MIN CURRENTLY WITH WIDE PULSE PRESSURE. LOW DIASTOLIC PRESSURES NOTED THIS SHIFT. TEMP MAY IS PATENT AND DRAINING BLOODY URINE TO GRAVITY; IRRIGATED THREE TIMES THIS SHIFT; 20CC OF URINE OUTPUT FOR THE ENTIRE SHIFT. WILL CONTINUE TO MONITOR UNTIL REPORT IS HANDED OFF TO ONCOMING RN
--- NOTE | 2021-11-08 07:24 | NUR ---
TOOK OVER CARE OF PT AT 0700, PT ON VENTILATOR ACVC 14/400/85%/15, PROPOFOL AT 30MCG, LEVO AT 6.
--- NOTE | 2021-11-08 18:43 | NUR ---
SUMMARY NEURO; PT FOLLOWED COMMANDS ON ALL EXTREMETIES DURING SEDATION HOLIDAY, PUPILS EQUAL, ALL BRAINSTEM REFLEXES IN PLACE. PT SEDATED ON 45MCG OF PROPOFOL, 25MCG FENTANYL INFUSIONS AND ONE ATIVAN PUSH GIVEN. CARDIAC; LEVO AT 10, LOW DIASTOLIC, 1*HB. HR 70'S -80'S LUNG: PT VENTED ACVC 15/450/70%/15, PT STACKING BREATHS INTERMITTENTLY THROUGHOUT THE DAY IN A MANNER THAT APPEARS THE PT IS TRYING TO TAKE A LARGER BREATH THAN DELIVERED. SEDATION INCREASED WITHOUT MUCH CHANGE. RT CHANGED VOLUMES FROM 400 TO 450 WHICH SEEMED TO IMPROVE VENTILATION. PT LUNGS CLEAR AND DIMINISHED THFOUGHOUT. END TIDAL CO2 INCREASED FROM 35-45 WHILE PT STACKING BREATHS. STEROIDS STARTED TODAY. PT NOT TOLERATING TURNING TO THE LEFT, DESATTING INTO 70'S. SKIN: BRUISING SCATTERED, SMALL OPENING ON COCCYX, HEELS IN TACT. GI; TF STARTED- NEPRO AT 40ML. THORNTON RESIDUALS WITH SOME COFFEE GROUND. HYPO ACTIVE, NO BM TODAY : MAY IN PLACE, 40ML COFFEE COLORED OUTPUT.
--- NOTE | 2021-11-08 20:33 | NUR ---
PATIENT INTUBATED AND SEDATED WITH PROPOFOL 45 MCG AND FENTANYL 25 MCG/HR. SLIGHT COUGH WITH SUCTIONING. NOT FOLLOWING DIRECTIONS, ONLY SLIGHT MOVEMENT TO ARMS SEEN. BED BATH COMPLETED FIO2 INCREASED TO 100% DURING BATH TO KEEP FIO2 GREATER THAN 90%. ETT IN PLACE WITH VENT AC VC+ 14, TV 450, PEEP 15, FIO2 70% SUCTIONING BLOODY SECRETIONS VIA ETT. SUCTIONING LARGE AMT OF CLEAR ORAL SECRETIONS. LEVOPHED TITRATED FOR HYPOTENSION SEE FLOW SHEET. DIALYSIS PERMACATH INTACT WITH DRESSING CD&I TO RIGHT CHEST.
[2021-11-09 03:49] LABS: BASOPHILS ABSOLUTE AUTO 0.03 K/mm3 (0.00-0.23); BASOPHILS PERCENT AUTO 0 % (0-2); EOSINOPHILS ABSOLUTE AUTO 0.01 K/mm3 (0.00-0.68); EOSINOPHILS PERCENT AUTO 0 % (0-6); Hematocrit 25.4 % (33.0-51.0); Hemoglobin 7.9 g/dL (11.5-16.0); IMMATURE GRAN ABSOLUTE AUTO 0.12 K/mm3 (0.00-0.10); IMMATURE GRAN PERCENT AUTO 1 % (0-1); LYMPHOCYTES ABSOLUTE AUTO 1.74 K/mm3 (0.84-5.20); LYMPHOCYTES PERCENT AUTO 11 % (21-46); MONOCYTES ABSOLUTE AUTO 0.36 K/mm3 (0.16-1.47); MONOCYTES PERCENT AUTO 2 % (4-13); Mean Corpuscular HGB Conc 31.1 g/dL (31.5-36.5); Mean Corpuscular Volume 97 fL (80-100); Mean Platelet Volume 11.3 fL (9.1-12.4); NEUTROPHILS ABSOLUTE AUTO 13.51 K/mm3 (1.96-9.15); NEUTROPHILS PERCENT AUTO 86 % (41-73); Platelet Count 77 K/mm3 (150-400); RDW Coefficient Variation 22.8 % (11.7-14.2); RDW Standard Deviation 80.4 fL (35.1-46.3); Red Blood Cell Count 2.63 M/mm3 (3.80-5.20); White Blood Cell Count 15.77 K/mm3 (4.00-11.30)
[2021-11-09 04:04] LABS: Albumin, Blood 2.5 g/dL (3.4-5.0); Albumin/Globulin Ratio 0.4 (0.8-1.8); Bun/Creatinine Ratio 10.2 (12.0-20.0); Calcium, Blood 9.5 mg/dL (8.5-10.1); Creatinine, Blood 5.19 mg/dL (0.40-1.00); Globulin, Blood 5.8 g/dL (2.2-4.0); Magnesium, Blood 2.5 mg/dL (1.6-2.4); Phosphorus, Blood 4.8 mg/dL (2.5-4.9); Potassium, Blood 3.9 mmol/L (3.5-5.5); Total Protein, Blood 8.3 g/dL (6.4-8.2)
--- NOTE | 2021-11-09 06:00 | NUR ---
PATIENT REMAINS INTUBATED AND SEDATED, PROPOFOL TITRATED DOWN TO 40 MCG, FENTANYL CONTINUES 25 MCG/HR. PATIENT GRIMACING WITH POSITIONING AND ORAL CARE, SLIGHT MOVEMENT SEEN TO BOTH ARMS. ETT IN PLACE WITH VENT AC/VC+ 14, TV 450, PEEP 15, FIO2 70% SUCTIONING OF BLOODY ETT SECRETIONS SEEMS TO HAVE DECREASED THIS MORNING, PATIENT ALSO HAD SOME BLOODY ORAL SECRETIONS WITH BLOOD CLOTS REMOVED AT MIDNIGHT AND 0400 HAD LESS BLOODY AND ONLY SMALL BLOOD CLOT. OG REMAINS IN PLACE WITH PIVOT AT GOAL RATE OF 40 CC/HR WITH MIN RESIDUALS.
--- NOTE | 2021-11-09 08:00 | NUR ---
ASSUMED CARE REPORT FROM BRUNA SEYMOUR AT 0700. PT INTUBATED AND SEDATED. VENT SETTINGS AC/VC+ 14/450/0.9/15/70%. LUNGS DIM IN BASES. NO SECRETIONS THROUGH ETT, SCANT BLOODY TINGED ORAL SECRETIONS. COUGH/GAG REFLEX. UNRESPONSIVE TO PAINFUL STIMULI. PROPOFOL AND FENTANYL GTT INFUSING FOR PAIN AND SEDATION. SEDATION NOT LOWERED D/T DOUBLE STACKING ON VENT. WILL DISCUSS c DR CHIN DURING ROUNDS. LEVO GTT FOR MAP>65. PICC TO E, DRESSING C/D/I. PERMACATH TO RIGHT CHEST WALL, PLAN FOR DIALYSIS TODAY. 2+ EDEMA TO ALL EXT. MAY PATENT, DRAINING SCANT BLOODY URINE TO GRAVITY. WILL CONTINUE TO MONITOR.
[2021-11-09 12:37] LABS: Vancomycin, Random 13.7 ug/mL
--- NOTE | 2021-11-09 13:40 | NUR ---
REPORT TO GEORGE SEYMOUR. NO ACUTE CHANGES. PLAN FOR BRONCH. DIALYSIS COMPLETE.
--- NOTE | 2021-11-09 17:58 | NUR ---
SHIFT SUMMARY NO ACUTE CHANGES THIS SHIFT. REMAINS INTUBATED AND SEDATED. VENT SETTINGS AC/VC+ 16/450/0.9/12/80%. LUNGS DIM, SCANT SECRETIONS FROM ETT. [facility] THIS SHIFT, SPECIMEN SENT TO LAB. SR ON MONITOR, RATE 70'S. LEVO GTT CONTINUES AT 6 MCG/MIN. TUBE FEEDS CHANGED TO VHP, AT GOAL, MINIMAL RESIDUALS. MAY PATENT, DRAINED 30ML BROWN CLOUDY URINE TO GRAVITY. DIALYSIS COMPLETE THIS SHIFT. WILL CONTINUE TO MONITOR UNTIL REPORT TO ONCOMING NURSE.
[2021-11-10 04:33] LABS: BASOPHILS ABSOLUTE AUTO 0.02 K/mm3 (0.00-0.23); BASOPHILS PERCENT AUTO 0 % (0-2); EOSINOPHILS PERCENT AUTO 0 % (0-6); Hematocrit 24.5 % (33.0-51.0); Hemoglobin 7.4 g/dL (11.5-16.0); IMMATURE GRAN ABSOLUTE AUTO 0.21 K/mm3 (0.00-0.10); IMMATURE GRAN PERCENT AUTO 1 % (0-1); LYMPHOCYTES ABSOLUTE AUTO 1.39 K/mm3 (0.84-5.20); LYMPHOCYTES PERCENT AUTO 8 % (21-46); MONOCYTES ABSOLUTE AUTO 0.98 K/mm3 (0.16-1.47); MONOCYTES PERCENT AUTO 5 % (4-13); Mean Corpuscular HGB 29.7 pg (26.0-34.0); Mean Corpuscular HGB Conc 30.2 g/dL (31.5-36.5); Mean Corpuscular Volume 98 fL (80-100); Mean Platelet Volume 10.5 fL (9.1-12.4); NEUTROPHILS ABSOLUTE AUTO 15.79 K/mm3 (1.96-9.15); NEUTROPHILS PERCENT AUTO 86 % (41-73); NRBC ABSOLUTE 0.03 K/mm3 (0.00-0.02); NRBC Auto 0.2 /100 WBC (0.0-0.2); Platelet Count 107 K/mm3 (150-400); RDW Coefficient Variation 23.4 % (11.7-14.2); RDW Standard Deviation 81.9 fL (35.1-46.3); Red Blood Cell Count 2.49 M/mm3 (3.80-5.20); White Blood Cell Count 18.39 K/mm3 (4.00-11.30)
[2021-11-10 04:53] LABS: Calcium, Blood 9.3 mg/dL (8.5-10.1); Creatinine, Blood 4.4 mg/dL (0.40-1.00); Magnesium, Blood 2.5 mg/dL (1.6-2.4); Phosphorus, Blood 3.9 mg/dL (2.5-4.9); Potassium, Blood 4.2 mmol/L (3.5-5.5)
--- NOTE | 2021-11-10 07:00 | NUR ---
SUMMARY PATIENT REMAINS INTUBATED AND SEDATED WITH PROPOFOL 40 MCG. COUGH AND GRIMACING WITH ORAL CARE AND STIMULI. ETT IN PLACE WITH VENT AC 16, TV 450, PEEP 10, FIO2 60% SUCTIONING SMALL AMT OF CLEAR WITH BLOOD TINGED SPUTUM. THIS AM TITRATING FIO2 UP TO 70% DUE TO BIOX IN THE HIGH 80'S. TEMP SLOWING INCREASING TO 101.2 THIS MORNING FAN AND ICE PACKS PLACED ON PATIENT. OG REMAINS IN PLACE WITH VITAL HP AT GOAL RATE OF 40 CC/HR WITH MIN RESIDUALS.
--- NOTE | 2021-11-10 15:16 | NUR ---
Spiritual Care - "Things We Care to Know" Pt. is not responsive. Spouse and PORFIRIO are present and welcome my visit. Initiated the "Things We Care to Know" survey with Spouse. Established rapport. Spouse and PORFIRIO display evidence of encouragement and trust, and verbalize gratitude for the spiritual care visit. "Things We Care to Know" is a Spiritual Care remotely piloted vehicle controller program designed to personalize the Pt./Staff relationship, particularly for the Pt. who cannot speak for themselves.
--- NOTE | 2021-11-10 17:49 | NUR ---
SHIFT SUMMARY NO ACUTE CHANGES THIS SHIFT. PT REMAINS INTUBATED. VENT SETTINGS AC 16, TV 450, PEEP 8, FIO2 60%. PT WITH MINIMAL AMOUNT OF BLOOD IN THICK ETT SECRETIONS THIS SHIFT. SEDATION HAS REMAINED OFF SINCE THIS AM. PT ATTEMPTS TO OPEN EYES TO VERBAL COMMAND, BUT UNABLE TO FOLLOW ANY DIRECTIONS. VITAL SIGNS HAVE REMAINED STABLE. LEVOPHED TITRATED OFF THIS SHIFT. PICC TO MARIELA REMAINS C/D/I. DIALYSIS CATH REMAINS INTACT. OGT REMAINS IN PLACE WITH TF INFUSING AT GOAL RATE. MAY TEMP PROBE REMAINS IN PLACE WITH SMALL AMOUNT OF DARK BROWN, CLOUDY URINE OUTPUT. DR AUGUSTIN AWARE. PT WITH MULTIPLE LOOSE BM'S THIS SHIFT. PT SPOUSE AND AUNT AT BEDSIDE MOST OF THE DAY. WILL CONTINUE TO MONITOR AND REPORT OFF TO ONCOMING RN.
--- NOTE | 2021-11-10 20:07 | NUR ---
PATIENT REMAINS INTUBATED WITH ETT IN PLACE WITH VENT AC/VC+ 16, TV 450, PEEP 8, FIO2 60% SUCTIONING THICK BLOODY THORNTON SPUTUM. PATIENT RESTLESS SHACKING HEAD BACK AND FORTH AND COUGHING, OPEN EYES SLOWLY TO DIRECTION, WEAK SQUEEZE WITH HER BOTH HANDS TO DIRECTION, AND SLIGHT WIGGLE OF TOES. PATIENT SLOW TO RESPOND TO DIRECTION. PROPOFOL RESTARTED AT 20 MCG TO HELP PATIENT RELAX. OG REMAINS IN PLACE WITH VITAL HP AT GOAL RATE OF 40 CC/HR. PERMACATH DIALYSIS CATH IN PLACE TO RIGHT CHEST.
--- NOTE | 2021-11-11 01:42 | NUR ---
DURING BED BATH PATIENT PASSED LARGE LIQUID BROWN STOOL. PATIENT STACKING BREATHS AND ALSO COUGHING. SUCTIONED LARGE DARK OLD BLOOD LOOKING PLUG VIA ETT. OXYGEN SATS REMAIN 88-89 FIO2 INCREASED TO 60% AND FENTANYL IV GIVEN. LEVOPHED TITRATED TO 3 MCG DUE TO HYPOTENSION.
[2021-11-11 04:39] LABS: BASOPHILS ABSOLUTE AUTO 0.01 K/mm3 (0.00-0.23); BASOPHILS PERCENT AUTO 0 % (0-2); EOSINOPHILS PERCENT AUTO 0 % (0-6); Hematocrit 22.8 % (33.0-51.0); Hemoglobin 6.9 g/dL (11.5-16.0); IMMATURE GRAN PERCENT AUTO 1 % (0-1); LYMPHOCYTES PERCENT AUTO 8 % (21-46); MONOCYTES PERCENT AUTO 6 % (4-13); Mean Corpuscular HGB 29.6 pg (26.0-34.0); Mean Corpuscular HGB Conc 30.3 g/dL (31.5-36.5); Mean Corpuscular Volume 98 fL (80-100); Mean Platelet Volume 10.9 fL (9.1-12.4); NEUTROPHILS PERCENT AUTO 86 % (41-73); Platelet Count 96 K/mm3 (150-400); RDW Coefficient Variation 23.9 % (11.7-14.2); RDW Standard Deviation 82.9 fL (35.1-46.3); Red Blood Cell Count 2.33 M/mm3 (3.80-5.20); White Blood Cell Count 15.32 K/mm3 (4.00-11.30)
[2021-11-11 04:41] LABS: IMMATURE GRAN ABSOLUTE AUTO 0.08 K/mm3 (0.00-0.10)
[2021-11-11 05:13] LABS: Alanine Aminotransfer (ALT/SGP 29 U/L (12-78); Albumin, Blood 2.4 g/dL (3.4-5.0); Albumin/Globulin Ratio 0.5 (0.8-1.8); Alk Phos 139 U/L (50-136); Anion Gap 12 mmol/L (6-16); Aspartate Aminotrans (AST/SGOT 88 U/L (12-37); Bilirubin, Total 1.4 mg/dL (0.1-1.0); Blood Urea Nitrogen 102 mg/dL (8-24); Bun/Creatinine Ratio 17.2 (12.0-20.0); CO2, Blood 27 mmol/L (21-32); Chloride, Blood 96 mmol/L (98-108); Creatinine, Blood 5.92 mg/dL (0.40-1.00); Globulin, Blood 5.2 g/dL (2.2-4.0); Glomerular Filtration Rate 8 (60-); Glucose, Blood 209 mg/dL (70-99); Magnesium, Blood 2.7 mg/dL (1.6-2.4); Potassium, Blood 4.4 mmol/L (3.5-5.5); Sodium, Blood 135 mmol/L (136-145); Total Protein, Blood 7.6 g/dL (6.4-8.2); Triglycerides 110 mg/dL (30-160)
--- NOTE | 2021-11-11 06:38 | NUR ---
SUMMARY PATIENT CONTINUES TO BE INTUBATED AND SEDATED, RESTARTING PROPOFOL 20MCG TO HELP PATIENT BERTRAND VENT. WHEN AWAKE SLOW TO FOLLOW SIMPLE DIRECTIONS. COUGHING AND STACKING BREATHS WHEN AWAKE. LEVOPHED 3 MCG FOR HYPOTENSION TO KEEP MAP GREATER THAN 60. ETT IN PLACE WITH VENT AC/VC+ 16, TV 450, PEEP 8, FIO2 55% SUCTIONING BLOOD TINGED THORNTON SPUTUM VIA ETT. OG REMAINS IN PLACE WITH VITAL HP AT GOAL RATE OF 40 CC/HR. PATIENT INCONT TWICE WITH LOOSE BROWN STOOL. DURING CLEANING AND LINEN CHANGE FIO2 INCREASED TO 100% TO PREVENT DESAT WHILE POSITIONED HIGH ON HER SIDE.
[2021-11-11 08:36] LABS: Vancomycin, Random 23.8 ug/mL
--- NOTE | 2021-11-11 09:14 | NUR ---
ASSUMPTION OF CARE RECEIVED REPORT FROM BRUNA SEYMOUR AT 0720, ASSUMED CARE OF PATIENT. PATIENT INTUBATED AND SEDATED ON PROPOFOL. RESPONDED TO VERBAL STIMULI. NO S/S OF DISTRESS. SP02 ABOVE 90% WITH FIO2 AT 55%. TUBE FEEDS INFUSING VIA OG AT GOAL RATE OF 40ML/HR. DIALYSIS BEGINNING IN ROOM AT 0830, FAMILY TO BEDSIDE. ORDERS REVIEWED, WILL TREAT PRESCRIBED.
--- NOTE | 2021-11-11 18:13 | NUR ---
SHIFT SUMMARY PATIENT REMAINED ON VENT WITH FIO2 DECREASED TO 50% WITH SP02 ABOVE 90%. CONTINUING TO SUCTION THICK, BROWN SPUTUM VIA ETT. SEDATED ON PROPOFOL, TITRATED FROM 10MCG/KG TO 20MCG/KG FOR VENT TOLERANCE. LEVOPHED AT 4MG AT THIS TIME TO MAINTAIN MAP ABOVE 60. DIALYSIS COMPLETED WITH 4L REMOVED. ST DEPRESSION NOTED, EKG COMPLETED, NOTIFIED DR. CHIN, TROPONIN OBTAINED AND ECHO COMPLETED. H/H ALSO REPORTED TO GIUSEPPE DURING AFTERNOON ROUNDS, ORDERS TO TRANSFUSE RECEIVED. UPON INIATION OF PRBC PATIENT BEGAN HAVING ECTOPY WITH RUNS OF VTACH PER CHART. REPORTED TO DR. CHIN, LABS DRAWN AND ECHO REVIEWED. WILL MONITOR RESULTS AND TREAT NEEDED. NO URINE OUTPUT VIA CATHETER, RECTAL TUBE PLACED PER CONTINUOUS BROWN SOFT STOOL. WILL REPORT TO ONCOMING RN.
[2021-11-11 18:29] LABS: Albumin, Blood 2.5 g/dL (3.4-5.0); Albumin/Globulin Ratio 0.4 (0.8-1.8); Bilirubin, Total 1.6 mg/dL (0.1-1.0); Bun/Creatinine Ratio 17.1 (12.0-20.0); Calcium, Blood 8.3 mg/dL (8.5-10.1); Creatinine, Blood 3.75 mg/dL (0.40-1.00); Globulin, Blood 5.6 g/dL (2.2-4.0); Magnesium, Blood 2.2 mg/dL (1.6-2.4); Potassium, Blood 4.3 mmol/L (3.5-5.5); Total Protein, Blood 8.1 g/dL (6.4-8.2)
--- NOTE | 2021-11-11 21:42 | NUR ---
Assumed Care. Sedated on propofol 20 mcq. Brief SB was placed. Pt would turn head back and forth, would not open eyes, cough, gag, and swallow all present. very small movement when asked to shooter helper hands. LAURA. LS clear with diminished bases. ETT suction scant reddish brown secretions. Occationally coughs. AC vent setttings 16/450/8/50%. Sats >90%. Sinus on monitor with ST depression. She had small run of VTach, resolved on own. BP has been soft needing levophed at 4 mcq. Just placed on SB as BP has MAP >70. Abdomin soft, BT hyperative, Rectal Tube in place, brown liquid stool noted. Rudolph with scant dark cheryl urine. Dialysis cath to right upper chest CDI. Picc line dressing intact. Blood completed. Redness to groin and coccyx. Powder applied. Repositioned, cath care. TF- infusing at 40ml/hr. Elevated extremitites. Restraints checked. Will cont. to monitor.
--- NOTE | 2021-11-12 | NUR ---
Blood pressure average has been above the 120's systolic, diastolic continues to be low in the 40's on average. MAP average 60-69. Levophed gtt decreased to 1.5 for to maintain a MAP >65. Suction small brownish red mucus.
[2021-11-12 04:42] LABS: BASOPHILS ABSOLUTE AUTO 0.01 K/mm3 (0.00-0.23); BASOPHILS PERCENT AUTO 0 % (0-2); EOSINOPHILS PERCENT AUTO 0 % (0-6); Hematocrit 24.4 % (33.0-51.0); Hemoglobin 7.8 g/dL (11.5-16.0); IMMATURE GRAN ABSOLUTE AUTO 0.32 K/mm3 (0.00-0.10); IMMATURE GRAN PERCENT AUTO 2 % (0-1); LYMPHOCYTES ABSOLUTE AUTO 1.84 K/mm3 (0.84-5.20); LYMPHOCYTES PERCENT AUTO 12 % (21-46); MONOCYTES ABSOLUTE AUTO 1.42 K/mm3 (0.16-1.47); MONOCYTES PERCENT AUTO 9 % (4-13); Mean Corpuscular HGB 29.9 pg (26.0-34.0); Mean Corpuscular Volume 94 fL (80-100); Mean Platelet Volume 10.9 fL (9.1-12.4); NEUTROPHILS ABSOLUTE AUTO 12.34 K/mm3 (1.96-9.15); NEUTROPHILS PERCENT AUTO 77 % (41-73); NRBC ABSOLUTE 0.05 K/mm3 (0.00-0.02); NRBC Auto 0.3 /100 WBC (0.0-0.2); Platelet Count 113 K/mm3 (150-400); RDW Coefficient Variation 24.5 % (11.7-14.2); RDW Standard Deviation 78.7 fL (35.1-46.3); Red Blood Cell Count 2.61 M/mm3 (3.80-5.20); White Blood Cell Count 15.93 K/mm3 (4.00-11.30)
[2021-11-12 05:06] LABS: Alanine Aminotransfer (ALT/SGP 32 U/L (12-78); Albumin, Blood 2.5 g/dL (3.4-5.0); Albumin/Globulin Ratio 0.5 (0.8-1.8); Alk Phos 127 U/L (50-136); Anion Gap 11 mmol/L (6-16); Aspartate Aminotrans (AST/SGOT 61 U/L (12-37); Bilirubin, Total 1.6 mg/dL (0.1-1.0); Blood Urea Nitrogen 93 mg/dL (8-24); Bun/Creatinine Ratio 20.7 (12.0-20.0); CO2, Blood 26 mmol/L (21-32); Calcium, Blood 8.7 mg/dL (8.5-10.1); Chloride, Blood 91 mmol/L (98-108); Globulin, Blood 5.1 g/dL (2.2-4.0); Glomerular Filtration Rate 11 (60-); Glucose, Blood 208 mg/dL (70-99); Magnesium, Blood 2.5 mg/dL (1.6-2.4); Phosphorus, Blood 6.5 mg/dL (2.5-4.9); Potassium, Blood 4.7 mmol/L (3.5-5.5); Sodium, Blood 128 mmol/L (136-145); Total Protein, Blood 7.6 g/dL (6.4-8.2); Vancomycin, Random 17.9 ug/mL
--- NOTE | 2021-11-12 05:37 | NUR ---
Shift Summary: Remains sedated on propofol 25mcq which is increased from 20 for vent tolerance. AC vent settings remain unchanged, 16/450/8/50%, sats have been 90-92%. Brown thich small amount of sputum via ETT. LS remain diminished. HR sinus with ST depression, unchanged. Levophed titrated down to 1.5 mcq from 4 to maintain MAP above 60, dispite SBP 120-130's but diastolic has been consistent in the 40's. Troponin trending down from 577 to 496. 1 run of 4 beat VTACh at start of shift. Continues to have brown liquid stool in rectal tube, 300 noted. Oliguria brown color-40cc noted. BUE and BLE edema. Abnormal electrolytes noted NA-128, Phos-6.5; Mag-2.5. Creatine-4.5; BUN 93, H/H did improve some after the 1 unit of PRBC last night to 7.8/24.4. Bllod sugars both needed coverage. TF continues at 40ml. Will continue to monitor and report to dayshift when they arrive. Continues to have brown liquid stool in rectal tube, 300cc out this shift.
--- NOTE | 2021-11-12 06:13 | NUR ---
Placed call to Dr. Esteban regarding am abnormal labs. Left message for return call.
--- NOTE | 2021-11-12 08:17 | NUR ---
ASSUMPTION OF CARE RECEIVED REPORT FROM TE SEYMOUR, ASSUMED CARE OF PATIENT AT 0705. PATIENT INTUBATED AND SEDATED, VENT ALARMING. SUCTIONED DARK, THICK SPUTUM VIA ETT. INCREASED SEDATION FOR VENT TOLERANCE, MAPS DROPPED BELOW 60, INCREASED LEVOPHED WELL AND WILL CONTINUE TO TITRATE NEEDED. FIO2 50% WITH SP02 ABOVE 90%. TUBE FEED AT GOAL OF 40ML/HR INFUSING VIA OG. DIALYSIS ORDERS RECEIVED. FAMILY TO BEDSIDE AND UPDATED REGARDING CHANGES OVERNIGHT, DR. RAMIREZ TO BEDSIDE REVIEWING PLAN AND CURRENT PROGNOSIS. ORDERS REVIEWED, WILL TREAT PRESCRIBED.
[2021-11-12 11:22] LABS: SARS-Cov-2 (COVID-19) PCR, MMC NEGATIVE (NEGATIVE)
[2021-11-12 13:41] LABS: Vancomycin, Random 10.6 ug/mL
--- NOTE | 2021-11-12 17:17 | NUR ---
Spiritual Care visit. Pt. is intubated and non responsive. Pts. aunt and family friend are present. Re-establish rapport. Aunt verbalizes that the Pt. has a large support base. Aunt displays evidence of confidence and trust the the care the Pt. is receiving. Family present verbalize gratitude for the spiritual care visit. This mohs surgeon/general dermatologist will remain available for the Pt. and family.
--- NOTE | 2021-11-12 17:55 | NUR ---
SHIFT SUMMARY PATIENT SEDATED ON VENT. PERIODS OF LOW VOLUMES AND STACKING BREATHS NOTED THROUGH MORNING. DR. CAMARA NOTIFIED, VENT ADJUSTED TO PRESSURE SUPPORT, PEEP OF 8 AND FIO2 50%. PATIENT TOLERATED WELL. SEDATION INCREASED TO 35MG/KG PER PATIENT COUGHING AND BREATHING AGAINST VENT. LEVOPHED TITRATED UP FOR DIALYSIS, NOW AT 5MCG WITH MAP ABOVE 60. TF REMAINED AT GOAL OF 40ML/HR. ECTOPY DECREASED AFTER DIALYSIS FINISHED. MAY WITH DARK DRAINAGE. RECTAL TUBE WITH CONTINUOUS BROWN, LIQUID STOOL. RETESTED FOR COVID WITH A NEGATIVE RESULT. WILL CONTINUE TO MONITOR AND REPORT TO ONCOMING RN.
--- NOTE | 2021-11-13 02:04 | NUR ---
PT LIGHTLY SEDATED TO COMFORT. EASILY AROUSABLE TO TOUCH. PERRLA. UNEVENTFUL. SKIN CARE, BATH PERFORMED. Q2 TURNS. TF AT GOAL - CHANGED. PICC FLUSHED AND DRAWS WELL. WILL CONTINUE TO MONITOR OXYGENATION AND EVALUATE RESTRAINTS.
[2021-11-13 05:59] LABS: BASOPHILS ABSOLUTE AUTO 0.03 K/mm3 (0.00-0.23); BASOPHILS PERCENT AUTO 0 % (0-2); EOSINOPHILS ABSOLUTE AUTO 0.01 K/mm3 (0.00-0.68); EOSINOPHILS PERCENT AUTO 0 % (0-6); Hematocrit 24.9 % (33.0-51.0); Hemoglobin 8.2 g/dL (11.5-16.0); IMMATURE GRAN ABSOLUTE AUTO 0.72 K/mm3 (0.00-0.10); IMMATURE GRAN PERCENT AUTO 3 % (0-1); LYMPHOCYTES ABSOLUTE AUTO 1.99 K/mm3 (0.84-5.20); LYMPHOCYTES PERCENT AUTO 9 % (21-46); MONOCYTES ABSOLUTE AUTO 2.34 K/mm3 (0.16-1.47); MONOCYTES PERCENT AUTO 10 % (4-13); Mean Corpuscular HGB Conc 32.9 g/dL (31.5-36.5); Mean Corpuscular Volume 91 fL (80-100); Mean Platelet Volume 11.2 fL (9.1-12.4); NEUTROPHILS ABSOLUTE AUTO 17.92 K/mm3 (1.96-9.15); NEUTROPHILS PERCENT AUTO 78 % (41-73); NRBC ABSOLUTE 0.07 K/mm3 (0.00-0.02); NRBC Auto 0.3 /100 WBC (0.0-0.2); Platelet Count 134 K/mm3 (150-400); RDW Coefficient Variation 23.9 % (11.7-14.2); RDW Standard Deviation 74.2 fL (35.1-46.3); Red Blood Cell Count 2.73 M/mm3 (3.80-5.20); White Blood Cell Count 23.01 K/mm3 (4.00-11.30)
[2021-11-13 06:36] LABS: Albumin, Blood 2.5 g/dL (3.4-5.0); Albumin/Globulin Ratio 0.5 (0.8-1.8); Bilirubin, Total 1.8 mg/dL (0.1-1.0); Bun/Creatinine Ratio 22.8 (12.0-20.0); Calcium, Blood 8.6 mg/dL (8.5-10.1); Creatinine, Blood 4.08 mg/dL (0.40-1.00); Globulin, Blood 4.8 g/dL (2.2-4.0); Magnesium, Blood 2.6 mg/dL (1.6-2.4); Phosphorus, Blood 7.4 mg/dL (2.5-4.9); Potassium, Blood 5.2 mmol/L (3.5-5.5); Total Protein, Blood 7.3 g/dL (6.4-8.2)
--- NOTE | 2021-11-13 07:09 | NUR ---
TOOK OVER CARE OF PT AT 0700. PT VENTILATED ON PRESSURE SUPPORT 10/8 50%. PROPOFOL AT 30, LEVO AT 3.
[2021-11-13 12:10] LABS: ANA DIRECT Negative (Negative); ANTIMYELOPEROXIDASE (MPO) ABS <9.0 U/mL (0.0-9.0); ANTIPROTEINASE 3 (PR-3) ABS 4.9 U/mL (0.0-3.5); ATYPICAL PANCA <1:20 titer (Neg:<1:20); CYTOPLASMIC (C-ANCA) <1:20 titer (Neg:<1:20); PERINUCLEAR (P-ANCA) <1:20 titer (Neg:<1:20)
--- NOTE | 2021-11-13 12:40 | NUR ---
SODIUM TRENDING DOWN, AUTOMATIC FLUSHES STOPPED ON TF PUMP. LIQUID STOOLS CONTINUING AFTER BOWEL MEDS HELD FOR SEVERAL DAYS, GI PANEL SENT. TUNNELED CATHETER CULTURED, MAY REMOVED. 4L REMOVED DURING DIALYSIS TODAY.
[2021-11-13 12:46] LABS: Vancomycin, Random 18.3 ug/mL
[2021-11-13 13:03] LABS: Adenovirus F 40/41 Not Detected (NOT DETECT); Astrovirus Not Detected (NOT DETECT); Campylobacter Sp Not Detected (NOT DETECT); Cryptosporidium Not Detected (NOT DETECT); Cyclospora Cayetanensis Not Detected (NOT DETECT); E. Coli O157 Not Detected (NOT DETECT); Entamoeba Histolytica Not Detected (NOT DETECT); Enteroaggregative E. coli-EAEC Not Detected (NOT DETECT); Enteropathogenic E. coli-EPEC Not Detected (NOT DETECT); Enterotoxigenic E. coli-ETEC Not Detected (NOT DETECT); Giardia Lamblia Not Detected (NOT DETECT); Norovirus GI/GII Not Detected (NOT DETECT); Plesiomonas Shigelloides Not Detected (NOT DETECT); Rotavirus A Not Detected (NOT DETECT); Salmonella Sp Not Detected (NOT DETECT); Sapovirus Not Detected (NOT DETECT); Shiga Toxin-prod E. coli-STEC Not Detected (NOT DETECT); Shigella/Enteroin E. coli-EIEC Not Detected (NOT DETECT); Vibrio Cholerae Not Detected (NOT DETECT); Vibrio Sp Not Detected (NOT DETECT); Yersinia Enterocolitica Not Detected (NOT DETECT)
--- NOTE | 2021-11-13 13:23 | NUR ---
DIAYSIS CALLED TO OBTAIN A BLOOD CULTURE SAMPLE FROM DIALYSIS PORT. TOOK SAMPLE FROM DIALYSIS PORT PER PROTOCAL. CHECKED FOR ORDERS. CHECKED IN WITH PT'S RN. TOOK BLOOD CULTURE BOTTLES TO THE LAB.
--- NOTE | 2021-11-13 17:16 | NUR ---
Met pt's at bedside today while bedside RN attempted sedation vacation. Pt was able to follow commands without difficulty, once she was able to wake up enough. Her is optimistic and states he is looking forward to the day she can return home, and he states "There's no other option". He was pleasant and talkative, discussing their grandchildren, and telling me how they first met. They have been for four years. Pt's verbalized relief to have palliative care provide therapeutic visits. Will remain available.
--- NOTE | 2021-11-13 18:24 | NUR ---
Spiritual Care Visit. Pt. had eyes open and could non-verbally ancknowledge some of my greetings. Spouse is present. This stephen focused upon spouse had how he was physically, emotionally, and spiritually holding up. Spouse displayed evidence of gratitude for caring about him. Established rapport. Spouse displayed evidence of trust and engagement. Prayed with Pt. and Spouse. Spouse verbalized gratitude for the spiritual care visit.
--- NOTE | 2021-11-13 18:26 | NUR ---
SUMMARY NEURO: PT FOLLOWS COMMANDS EQUALLY ON ALL EXTREMETIES. SLOW TO METABOLIZE SEDATION. PROPOFOL AT 5 FOR COMFORT. GENERALIZED WEAKNESS. LUNGS: INTERMITTENT COARSE BREATH SOUNDS, CLEARER AFTER DIALYSIS. VENTILATED WITH PRESSURE SUPPORT 10/5 40% FiO2. THICK PINK/ORANGE MUCOUS PLUGS. PT LAVAGED NEEDED. Q2 ORAL CARE COMPLETED THIS SHIFT. GI: HYPOACTIVE BOWEL SOUNDS, 0800 RESIDUAL OF 300, 1600 RESIDUAL OF 150. FMS IN PLACE. Q4 30ML FREE WATER FLUSHES DISCONTINUED DT DOWN TRENDING SODIUM. FMS IN PLACE. GI PANEL NEGATIVE. : SCANT BRICK RED URINE OUTPUT IN MAY TUBING. MAY REMOVED DUE TO RISK OF INFECTION AND LOW OUTPUT. 4L REMOVED DURING HD TODAY. SKIN: RED COCCYX. TUNNELED CATHETER BLOOD CULTURE (NO WASTE).
--- NOTE | 2021-11-13 19:44 | NUR ---
ASSUMED PT CARE AT 1900 PT INTUBATED AND ON LIGHT SEDATION. PROPOFOL AT 5MCG/KG/MIN. VENT SPONTANEOUS PS 10/5; 40%, RR 16, SPO2 96%, ETCO2 34. PT AWAKE AND TRACKING. FOLLOWING COMMANDS. MOVING ALL EXTREMITIES. APPEARS TO BE COMFORTABLE AT THIS TIME WITH NO DOUBLE STACKING OR ASYNCHRONOUS NOTED WITH VENT. PT HAS RECTAL TUBE IN PLACE THAT IS PATENT AND DRAINING. NO MAY. PICC TO MARIELA. SEE SHIFT ASSESSMENT FOR FURTHER DETAILS.
[2021-11-14 04:15] LABS: BASOPHILS ABSOLUTE AUTO 0.02 K/mm3 (0.00-0.23); BASOPHILS PERCENT AUTO 0 % (0-2); EOSINOPHILS PERCENT AUTO 0 % (0-6); Hematocrit 23.5 % (33.0-51.0); Hemoglobin 7.4 g/dL (11.5-16.0); IMMATURE GRAN ABSOLUTE AUTO 0.23 K/mm3 (0.00-0.10); IMMATURE GRAN PERCENT AUTO 2 % (0-1); LYMPHOCYTES ABSOLUTE AUTO 0.89 K/mm3 (0.84-5.20); LYMPHOCYTES PERCENT AUTO 6 % (21-46); MONOCYTES PERCENT AUTO 7 % (4-13); Mean Corpuscular HGB 29.7 pg (26.0-34.0); Mean Corpuscular HGB Conc 31.5 g/dL (31.5-36.5); Mean Corpuscular Volume 94 fL (80-100); Mean Platelet Volume 11.5 fL (9.1-12.4); NEUTROPHILS ABSOLUTE AUTO 13.15 K/mm3 (1.96-9.15); NEUTROPHILS PERCENT AUTO 86 % (41-73); NRBC ABSOLUTE 0.02 K/mm3 (0.00-0.02); NRBC Auto 0.1 /100 WBC (0.0-0.2); Platelet Count 74 K/mm3 (150-400); RDW Coefficient Variation 24.7 % (11.7-14.2); RDW Standard Deviation 78.9 fL (35.1-46.3); Red Blood Cell Count 2.49 M/mm3 (3.80-5.20); White Blood Cell Count 15.39 K/mm3 (4.00-11.30)
[2021-11-14 04:29] LABS: Bun/Creatinine Ratio 23.4 (12.0-20.0); Calcium, Blood 8.5 mg/dL (8.5-10.1); Creatinine, Blood 3.97 mg/dL (0.40-1.00); Potassium, Blood 4.6 mmol/L (3.5-5.5)
--- NOTE | 2021-11-14 05:40 | NUR ---
END OF SHIFT SUMMARY LEVOPHED NEEDED TO BE RESTARTED THIS SHIFT D/T LOW DIASTOLIC PRESSURES AND MAP'S 40-50'S. CURRENTLY AT 8MCG/MIN. CALL MADE TO DR. CAMARA D/T PT HAVING MULITPLE NON-SUSTAINED RUNS OF VTACH. NEW ORDERS TO ADD PHOSPHORUS, MAGNESIUM, AND IONIZED CALCIUM TO MORNING LABS, WELL TO RESTART MIDODRINE 10MG Q8 HOURS. PT REMAINS ON SPONTANEOUS WITH PS 10/5; FIO2 45%, SPO2 92%, RR 16, ETCO2 34. PROPOFOL AT 15MCG/KG/MIN FROM 5MCG/KG/MIN D/T PT COUGHING AND GAGGING ON ETT. PT STILL OPENS EYES TO VERBAL STIMULI AND IS ABLE TO FOLLOW COMMANDS. TUBE FEEDING REMAINS AT GOAL OF 40ML/HR WITH NO WATER FLUSHES. RECTAL TUBE REMAINS PATENT AND DRAINING TO GRAVITY WITH 100CC NOTED THIS SHIFT. NO MAY WITH NO URINE OUTPUT NOTED THIS SHIFT. WILL CONTINUE TO MONITOR UNTIL REPORT IS HANDED OFF TO ONCOMING RN.
[2021-11-14 05:52] LABS: Magnesium, Blood 2.8 mg/dL (1.6-2.4); Phosphorus, Blood 7.7 mg/dL (2.5-4.9)
--- NOTE | 2021-11-14 06:34 | NUR ---
CALL OUT TO DR. CAMARA PT'S DIASTOLIC CONTINUES TO BE IN THE 20'S DESPITE INCREASING LEVOPHED. LEVOPHED UP TO 15MCG/MIN AT ONE POINT AND SYSTOLIC KEPT RISING, BUT NOT DIASTOLIC. OBTAINED MANUAL BP WITH SAME RESULT. WIDE PULSE PRESSURES WITH SYSTOLICS 130-140'S AND DIASTOLICS 20'S. NEW ORDERS TO INFUSE 25GM OF ALBUMIN AND START VASOPRESSIN.
--- NOTE | 2021-11-14 08:00 | NUR ---
TOOK OVER CARE OF PT AT 0700. PT ON VENTILATOR, PRESSURE SUPPORT AT 10/5 45%. 10 OF PROPOFOL, 10 OF LEVOPHED, .04 OF VASO INFUSING.
--- NOTE | 2021-11-14 10:13 | NUR ---
FiO2 INCREASED TO 55%
[2021-11-14 12:44] LABS: Vancomycin, Random 12.6 ug/mL
--- NOTE | 2021-11-14 14:35 | NUR ---
PT EXTUBATED AROUND 1300, PLACED ON 7L HFNC.
--- NOTE | 2021-11-14 17:02 | NUR ---
SUMMARY NEURO: PT ALERT BUT INTERMITTENTLY SLOW TO RESPOND. TIRED BUT NOT DYSPNEIC. VOICE IS STILL HOARSE. FOLLOWS COMMANDS ON ALL EXTREMETIES EQUALLY, BUT VERY WEAK. CARDIAC: DC INTERVAL HAS DECREASED FROM .24 TO .19. PT WAS DIALYZED APPROX. 3.5L. VASO OFF, LEVO OFF. TRACE BUE EDEMA IN HANDS, PROBABLY DUE TO RESTRAINTS. NO EDEMA NOTED IN BLE. LUNGS: PT EXTUBATED AROUND 1300, PLACED ON 7L HFNC. ABLE TO PULL APPROX. 1400ML OF AIR PRIOR TO EXTUBATION. RR AROUND 14-18. LUNGS CLEAR, DIMINISHED BASES. PT STILL HAD BRIGHT RED/ORANGE ET SPUTUM PRIOR TO EXTUBATION. SKIN: SCATTERED BRUISING IN BUE, REDNESS ON COCCYX IMPROVING. SMALL OPENING NOW HEALED. GI: OG AND RECTAL TUBE REMOVED. SOFT ABDOMEN, ACTIVE BOWEL SOUNDS IN ALL QUADRANTS. NO BM TODAY. : SCANT BRICK RED URINE OUTPUT.
[2021-11-15 03:52] LABS: BASOPHILS ABSOLUTE AUTO 0.04 K/mm3 (0.00-0.23); BASOPHILS PERCENT AUTO 0 % (0-2); EOSINOPHILS ABSOLUTE AUTO 0.01 K/mm3 (0.00-0.68); EOSINOPHILS PERCENT AUTO 0 % (0-6); Hematocrit 24.9 % (33.0-51.0); Hemoglobin 7.9 g/dL (11.5-16.0); IMMATURE GRAN ABSOLUTE AUTO 1.03 K/mm3 (0.00-0.10); IMMATURE GRAN PERCENT AUTO 4 % (0-1); LYMPHOCYTES ABSOLUTE AUTO 1.46 K/mm3 (0.84-5.20); LYMPHOCYTES PERCENT AUTO 5 % (21-46); MONOCYTES ABSOLUTE AUTO 2.16 K/mm3 (0.16-1.47); MONOCYTES PERCENT AUTO 7 % (4-13); Mean Corpuscular HGB 30.2 pg (26.0-34.0); Mean Corpuscular HGB Conc 31.7 g/dL (31.5-36.5); Mean Corpuscular Volume 95 fL (80-100); Mean Platelet Volume 11.4 fL (9.1-12.4); NEUTROPHILS ABSOLUTE AUTO 24.34 K/mm3 (1.96-9.15); NEUTROPHILS PERCENT AUTO 84 % (41-73); NRBC ABSOLUTE 0.06 K/mm3 (0.00-0.02); NRBC Auto 0.2 /100 WBC (0.0-0.2); Platelet Count 95 K/mm3 (150-400); RDW Coefficient Variation 25.6 % (11.7-14.2); RDW Standard Deviation 84.1 fL (35.1-46.3); Red Blood Cell Count 2.62 M/mm3 (3.80-5.20); White Blood Cell Count 29.04 K/mm3 (4.00-11.30)
[2021-11-15 04:08] LABS: Albumin, Blood 2.9 g/dL (3.4-5.0); Albumin/Globulin Ratio 0.7 (0.8-1.8); Bilirubin, Total 2.3 mg/dL (0.1-1.0); Bun/Creatinine Ratio 26.1 (12.0-20.0); Calcium, Blood 8.9 mg/dL (8.5-10.1); Creatinine, Blood 3.71 mg/dL (0.40-1.00); Globulin, Blood 4.4 g/dL (2.2-4.0); Magnesium, Blood 2.6 mg/dL (1.6-2.4); Phosphorus, Blood 7.3 mg/dL (2.5-4.9); Potassium, Blood 5.1 mmol/L (3.5-5.5); Total Protein, Blood 7.3 g/dL (6.4-8.2)
--- NOTE | 2021-11-15 06:47 | NUR ---
SHIFT SUMMARY LEVOPHED WAS INCREASED TO 7MCG/MIN AND VASOPRESSIN RESTARTED. BP CURRENTLY 135/42 MAP 68. PATIENT BEGAN EXPERIENCING VISUAL HALLUCINATIONS THIS MORNING-SEEING SPIDERS ON BED AND PEOPLE IN ROOM WHO ARE NOT THEIR. PATIENT FAILED BEDSIDE SWALLOW EVAL AT BEGINNING OF SHIFT. VOICE REMAINS HOARSE AND COUGH IS WEAK. O2 REQUIREMENTS INCREASED DURING SHIFT TO A MAX OF 15LPM HFNC, BUT HAS SINCE BEEN TITRATED DOWN TO 10LPM CURRENTLY WITH SPO2 LOW 90'S. PATIENT HAD 2 BM DURING SHIFT. NO OTHER CHANGES DURING SHIFT.
--- NOTE | 2021-11-15 07:22 | NUR ---
TOOK OVER CARE OF PT AT 0700, PT RESTING ON 10L HFNC, LEVOPHED AT 7, VASOPRESSIN AT .04. REPORTS OF HALLUCINATIONS OVERNIGHT
--- NOTE | 2021-11-15 11:01 | NUR ---
DIALYSIS UNABLE TO GET CATH TO RUN. TRIED SWITCHING PORTS, FLUSHING, AND HEPARIN FLUSH. WITHOUT IMPROVEMENT. TALKED TO DR HAILE. USED ALTEPLASE FOR 45 MIN WITHOUT SUCCESS. DC'ED TX AND PACKED CATH WITH ALTAPLASE AGAIN. RETURNED PT TO ROOM. NOTIFIED DR HAILE.
--- NOTE | 2021-11-15 11:40 | NUR ---
PT DECOMPENSATED DURING DIALYSIS 0900 BP 134/34- LEVO AT 7 0915 BP 114/37- LEVO INCREASED TO 9 0921 BP 101/22 (43)- LEVO INCREASED TO 12 0923 BP 52/42 (46)- LEVO INCREASED TO16- HD UF RUNNING AT 0 0926 BP 94/40, HR 84, O2 86. LEVO INCREASED TO 18 PT VISIBLY SUNG, INCREASED TO 15L HFNC, RESPIRATORY AND GOSMAN NOTIFIED. 0928 HR 134 AFIB RVR 0943 20MG CARDIZEM IV PUSH- LEVO INCREASED TO 20 0950 PT PLACED ON BIPAP 1000 VITALS MORE STABLE, TITRATING LEVO DOWN TOLERATED
--- NOTE | 2021-11-15 15:30 | NUR ---
PT CARDIOVERTED WITH 1MG IBUTILIDE, ZOLL PATCHES TO REMAIN IN PLACE FOR FOUR HOURS. EKG PLACED IN CHART
--- NOTE | 2021-11-15 18:16 | NUR ---
SUMMARY NEURO; PT SOMEWHAT ALERT, ORIENTED X4. INTERRMITTENT VISUAL HALLUCINATIONS. EQUAL STRENGTH THROUGHOUT BUT WEAK. PT HAS A BASELINE ASSYMETRICAL SMILE PER SPOUSE. LUNGS: CLEAR UPPERS, DIMINISHED BASES. PT HAS ALTERNATED BETWEEN 10L HFNC AND A CPAP 10. CARDIAC: PT WENT INTO AFIB RVR TODAY (SEE DECOMPENSATION NOTE) WAS INITIALLY GIVEN 20MG OF CARDIZEM, THEN EVENTUALLY CHEMICALLY CARDIOVERTED WITH IBUTILIDE. ZOLL PATCHES IN PLACE. ATTEMPTED TO TITRATE VASOPRESSIN OFF AND DID NOT TOLERATE IT. VENOUS DOPPLERS COMPLETED DUE TO CONCERN FOR CLOTS BEING CAUSE OF DECOMPENSATION. PT ALSO HAD AN EIGHT BEAT RUN OF VTACH, TELEMETRY STRIP PLACED IN COMPUTER CHART. PT CURRENTLY ON 8 OF LEVO, AND .04 VASO. ALL PULSES PALPABLE, NO EDEMA PRESENT. GI; PT FAILED BEDSIDE SWALLOW, SPEECH EVAL ORDERED, DOBHOFF ITEMS AT BEDSIDE. DURING PREVIOUS SPEECH EVAL LAST WEEK, PT WAS UNABLE TO FULLY CHEW CHOPPED PEACHED. : ONE EPISODE OF UNMEASURED URINE, TEA COLORED. PT NOW APPEARS TO HAVE VAGINAL BLEEDING BUT STATES SHE WENT THROUGH MENOPAUSE IN HER THIRTY'S.
[2021-11-16 04:33] LABS: BASOPHILS ABSOLUTE AUTO 0.02 K/mm3 (0.00-0.23); BASOPHILS PERCENT AUTO 0 % (0-2); EOSINOPHILS ABSOLUTE AUTO 0.05 K/mm3 (0.00-0.68); EOSINOPHILS PERCENT AUTO 0 % (0-6); Hematocrit 23.2 % (33.0-51.0); Hemoglobin 7.4 g/dL (11.5-16.0); IMMATURE GRAN ABSOLUTE AUTO 0.44 K/mm3 (0.00-0.10); IMMATURE GRAN PERCENT AUTO 2 % (0-1); LYMPHOCYTES ABSOLUTE AUTO 0.97 K/mm3 (0.84-5.20); LYMPHOCYTES PERCENT AUTO 5 % (21-46); MONOCYTES ABSOLUTE AUTO 1.16 K/mm3 (0.16-1.47); MONOCYTES PERCENT AUTO 6 % (4-13); Mean Corpuscular HGB 30.3 pg (26.0-34.0); Mean Corpuscular HGB Conc 31.9 g/dL (31.5-36.5); Mean Corpuscular Volume 95 fL (80-100); Mean Platelet Volume 10.9 fL (9.1-12.4); NEUTROPHILS ABSOLUTE AUTO 18.26 K/mm3 (1.96-9.15); NEUTROPHILS PERCENT AUTO 87 % (41-73); NRBC ABSOLUTE 0.04 K/mm3 (0.00-0.02); NRBC Auto 0.2 /100 WBC (0.0-0.2); Platelet Count 77 K/mm3 (150-400); RDW Coefficient Variation 25.8 % (11.7-14.2); RDW Standard Deviation 83.9 fL (35.1-46.3); Red Blood Cell Count 2.44 M/mm3 (3.80-5.20)
[2021-11-16 04:53] LABS: Albumin, Blood 2.9 g/dL (3.4-5.0); Albumin/Globulin Ratio 0.7 (0.8-1.8); Bilirubin, Total 2.5 mg/dL (0.1-1.0); Calcium, Blood 8.8 mg/dL (8.5-10.1); Creatinine, Blood 3.44 mg/dL (0.40-1.00); Globulin, Blood 4.1 g/dL (2.2-4.0); Magnesium, Blood 2.5 mg/dL (1.6-2.4)
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
--- NOTE | 2021-11-16 08:00 | NUR ---
ASSUMED CARE: REPORT RECEIVED FROM BRAXTON Mcgovern RN. ASSUMED CARE OF THIS PT AT APPROX 0700. ON ASSESSMENT, THE PT IS AWAKE, DENIES PAIN. SHE IS ORIENTED TO SELF, FOLLOWING DIRECTIONS, PLACE & FAMILY MEMBERS AT BEDSIDE. LS ARE COARSE T/O, PT ON 15L HI-FLOW NC W/ O2 SATS > 95%. MONITOR SHOWS SR W/ HR 70s, HYPOTENSIVE W/ LEVOPHED INFUSING AT 8 MCG/MIN. NPO R/T PENDING SPEECH THERAPY EVAL. PT CALLS FREQUENTLY TO VOID URINE & IS ABLE TO VOID IN SMALL AMNTS AT TIMES. SKIN OVERALL FRAGILE, DEPENDENT EDEMA NOTED TO EXTREMITIES. PT IS WEAK OVERALL BUT MOTIVATED TO "GET BETTER & GO HOME." WILL CONTINUE TO MONITOR & UPDATE NEEDED.
--- NOTE | 2021-11-16 09:00 | NUR ---
DR BAINS: CALL FROM PROVIDER & TELE HEALTH APPOINTMENT COMPLETED W/ LUDY Ely, CONSUMER SAFETY INSPECTOR. NO PLANS FOR DIALYSIS TODAY, POSSIBLE DIALYSIS TOMORROW. CONTINUE TO TITRATE VASOPRESSORS DOWN TOLERATED.
--- NOTE | 2021-11-16 10:30 | NUR ---
DR KYLE: PROVIDER AT BEDSIDE TO DAI PT THIS AM. HE WOULD LIKE PRESSORS TO BE TITRATED DOWN TOLERATED, OTHERWISE NO CHANGES AT THIS TIME. UPDATED HIM THAT DR BAINS HAS NO PLANS FOR DIALYSIS TODAY.
--- NOTE | 2021-11-16 18:45 | NUR ---
SHIFT SUMMARY: NO ACUTE CHANGES SINCE PRIOR UPDATES. PT REMAINS A&O TO SELF, FOLLOWING DIRECTIONS, FAMILY & PLACE. SHE DOES HAVE EPISODES OF INTERMITTENT CONFUSION WHERE SHE INSISTS THAT SHE IS "GOING HOME LATER TODAY" BUT RESPONDS WELL TO FAMILY's REMINDERS THAT SHE NEEDS TO GET BETTER PRIOR TO COMING HOME. LS W/ FINE CRACKLES T/O, PT ON 8L HI-FLOW NC W/ O2 SATS > 95%. MONITOR SHOWS SR W/ HR 60s. LEVOPHED TITRATED OFF AT APPROX 1600 THIS AFTERNOON. DBP LOW BUT MAP MAINTAINING > 60 ON AVG. PT TOLERATING SMALL AMNTS OF PO INTAKE BUT OVERALL HAS POOR APPETITE. VOIDS URINE IN SMALL AMNTS, ATTENDS IN PLACE FOR OCCASIONAL INCONTINENCE. SKIN CONDITION OVERALL INTACT, FRAGILE. Q2H REPOSITIONING TO MAINTAIN SKIN INTEGRITY. WILL CONTINUE TO MONITOR & REPORT OFF TO ONCOMING RN.
[2021-11-17 04:13] LABS: BASOPHILS ABSOLUTE AUTO 0.01 K/mm3 (0.00-0.23); BASOPHILS PERCENT AUTO 0 % (0-2); EOSINOPHILS ABSOLUTE AUTO 0.01 K/mm3 (0.00-0.68); EOSINOPHILS PERCENT AUTO 0 % (0-6); Hematocrit 22.3 % (33.0-51.0); Hemoglobin 6.9 g/dL (11.5-16.0); IMMATURE GRAN ABSOLUTE AUTO 0.22 K/mm3 (0.00-0.10); IMMATURE GRAN PERCENT AUTO 1 % (0-1); LYMPHOCYTES ABSOLUTE AUTO 0.64 K/mm3 (0.84-5.20); LYMPHOCYTES PERCENT AUTO 4 % (21-46); MONOCYTES ABSOLUTE AUTO 0.74 K/mm3 (0.16-1.47); MONOCYTES PERCENT AUTO 5 % (4-13); Mean Corpuscular HGB 30.4 pg (26.0-34.0); Mean Corpuscular HGB Conc 30.9 g/dL (31.5-36.5); Mean Corpuscular Volume 98 fL (80-100); Mean Platelet Volume 11.2 fL (9.1-12.4); NEUTROPHILS ABSOLUTE AUTO 13.73 K/mm3 (1.96-9.15); NEUTROPHILS PERCENT AUTO 89 % (41-73); Platelet Count 77 K/mm3 (150-400); RDW Coefficient Variation 25.8 % (11.7-14.2); RDW Standard Deviation 88.8 fL (35.1-46.3); Red Blood Cell Count 2.27 M/mm3 (3.80-5.20); White Blood Cell Count 15.35 K/mm3 (4.00-11.30)
[2021-11-17 04:36] LABS: Albumin, Blood 2.7 g/dL (3.4-5.0); Anion Gap 14 mmol/L (6-16); Blood Urea Nitrogen 134 mg/dL (8-24); CO2, Blood 21 mmol/L (21-32); Calcium, Blood 8.5 mg/dL (8.5-10.1); Chloride, Blood 98 mmol/L (98-108); Creatinine, Blood 5.35 mg/dL (0.40-1.00); Glomerular Filtration Rate 9 (60-); Glucose, Blood 160 mg/dL (70-99); Potassium, Blood 5.8 mmol/L (3.5-5.5); Sodium, Blood 133 mmol/L (136-145)
[2021-11-17 04:49] LABS: Phosphorus, Blood 9.4 mg/dL (2.5-4.9)
--- NOTE | 2021-11-17 05:20 | NUR ---
PT. WAS NOT ALERT UPON FIRST ASSESSMENT AND THEREFORE WAS NOT GIVEN HER NIGHTLY MEDS. PT. WAS PLACED ON CPAP MACHINE IOVERNIGHT AND TOLERATED WELL. PT. HAD LOW MAPS AT THE BEGINNING OF THE SHIFT BUT WAS ABLE TO REMAIN OFF OF PRESSORS AND CURRENTLY HAS A MAP OF 66 WITH NO PRESSOR SUPPORT. PT. MUCH MORE ALERT AFTER SLEEPING AND WAS ASSISTED TO THE BEDPAN THIS MORNING. PT. SEEMS IN A BETTER MOOD THIS AM ALTHOUGH SHE IS STILL SOMEWHAT DISORIENTED.
--- NOTE | 2021-11-17 08:00 | NUR ---
ASSUMED CARE: REPORT RECEIVED FROM JEZ Tai RN. ASSUMED CARE OF THIS PT AT APPROX 0700. ON ASSESSMENT, THE PT IS AWAKE W/ FAMILY AT BEDSIDE. SHE IS OVERALL ORIENTED TO SELF, FOLLOWING DIRECTIONS, FAMILY & PLACE BUT DOES REQUIRE SOME REORIENTATION FOR INTERMITTENT CONFUSION. LS W/ FINE CRACKLES T/O, PT ON 7L NC W/ O2 SATS > 95%, TITRATED DOWN TO 5L W/ O2 SATS MAINTAINING > 95%. MONITOR SHOWS SR W/ FIRST DEGREE HB, HR 60-70s. BP STABLE W/ LEVOPHED OFF SINCE YESTERDAY AFTERNOON. DBP LOW 30-40s BUT MAP MAINTAINING > 60 ON AVG. PT STS HAVING NO APPETITE, BUT IS TOLERATING SMALL AMNTS OF PO INTAKE & MEDS CRESHED W/ APPLESAUCE. SHE FEELS THE NEED TO VOID URINE FREQUENTLY BUT IS ONLY ABLE TO ACTUALLY VOID OCCASIONALLY. VOIDS IN SMALL AMNTS R/T HD. SKIN OVERALL FRAGILE, INTACT. Q2H REPOSITIONING TO MAINTAIN SKIN INTEGRITY. WILL CONTINUE TO MONITOR & UPDATE NEEDED.
--- NOTE | 2021-11-17 10:00 | NUR ---
DR LR: PROVIDER AT BEDSIDE TO DAI PT THIS AM. STS OKAY TO BE PCU STATUS ONCE DIALYSIS COMPLETE IF BP CONTINUES TO BE STABLE W/ MAP APPROX 60. NO OTHER CHANGES AT THIS TIME.
--- NOTE | 2021-11-17 16:34 | NUR ---
SHIFT SUMMARY: NO ACUTE CHANGES SINCE PRIOR UPDATES. PT REMAINS PCU STATUS. ALERT & ORIENTED TO SELF, FAMILY, FOLLOWING DIRECTIONS & PLACE. SHE IS DROWSY AT TIMES & FALLS ASLEEP QUICKLY AFTER CONVERSATIONS OR STIMULUS COMPLETE. LS ARE DIM T/O, PT ON 4L NC W/ O2 SATS > 92% ON AVG. MONITOR SHOWS SR-ST W/ HR 90-100s, BP STABLE. PT TOLERATING PO INTAKE WELL, HAS HAD NUMEROUS SMALL BROWN BMs THIS SHIFT. VOIDS URINE W/O DIFFICULTY, IS OFTEN INCONTINENT. ATTENDS IN PLACE. SKIN OVERALL INTACT, Q2H REPOSITIONING TO MAINTAIN SKIN INTEGRITY. WILL CONTINUE TO MONITOR & REPORT OFF TO ONCOMING RN.
--- NOTE | 2021-11-17 17:00 | NUR ---
SHIFT SUMMARY: NO ACUTE CHANGES SINCE PRIOR UPDATES. PT IS PCU STATUS. REMAINS ALERT & ORIENTED TO ALL, DOES EXPERIENCE INTERMITTENT CONFUSION AT TIMES & STS SHE IS "READY TO GO HOME." EASILY REDIRECTABLE. LS W/ FINE CRACKLES & SLIGHT WHEEZE NOTED TO MANOJ, OTHERWISE CLEAR/DIM. PT ON 8L NC W/ O2 SATS > 95% ON AVG. MONITOR SHOWS SR W/ HR 60-70s, MILD HYPOTENSION W/ DBP LOW, MAP MAINTAINING APPROX 60. PT TOLERATING SMALL AMNTS OF PO INTAKE BUT STS HAVING A POOR APPETITE. MEDS CRUSHED IN APPLESAUCE PER SPEECH THERAPY EVAL. NO VOID THIS SHIFT, PT HAS HAD HD W/ 1500 ML REMOVED. SKIN OVERALL INTACT, FRAGILE. Q2H REPOSITIONING TO MAINTAIN SKIN INTEGRITY. WILL CONTINUE TO MONITOR & REPORT OFF TO ONCOMING RN.
--- NOTE | 2021-11-17 19:15 | NUR ---
PT REPORT RECEIVED SAFETY CHECK COMPLETED, ASSUMED PT CARE.
[2021-11-18 03:39] LABS: Albumin, Blood 2.8 g/dL (3.4-5.0); Anion Gap 10 mmol/L (6-16); Blood Urea Nitrogen 87 mg/dL (8-24); CO2, Blood 31 mmol/L (21-32); Calcium, Blood 8.9 mg/dL (8.5-10.1); Chloride, Blood 99 mmol/L (98-108); Creatinine, Blood 3.78 mg/dL (0.40-1.00); Glomerular Filtration Rate 14 (60-); Glucose, Blood 192 mg/dL (70-99); Phosphorus, Blood 6.6 mg/dL (2.5-4.9); Potassium, Blood 4.8 mmol/L (3.5-5.5); Sodium, Blood 140 mmol/L (136-145)
--- NOTE | 2021-11-18 06:40 | NUR ---
SHIFT SUMMARY: PT WAS ALERT AT FIRST AND ORIENTED TO SELF AND PLACE WITH SHORT TERM MEMORY LOSS AND CONFUSSION NEEDING TO BE RE-ORIENTED. PT ABLE TO TOLLERATED MEDICATION CRUSHED WITH PUREE WELL. PT WAS ABLE TO SLEEP FOR MUCH OF THE NIGHT WITH STABLE SPO2 ON MODARATE FLOW NC AT 8LPM. SPO2 DOES DROP RAPPIDLY TO AROUND 80 IF SHE TAKES OF THE NC. HR AND BP FAIRLY STABLE OVER NIGHT. PT DID HAVE ONE INCONTINANT VOID OVER NIGHT. CONTINUED WITH Q2H TURNS.
--- NOTE | 2021-11-18 09:55 | NUR ---
PT TAKEN TO DIALYSIS AT THIS TIME.
--- NOTE | 2021-11-18 17:04 | NUR ---
SHIFT SUMMARY PT DOING WELL THIS SHIFT. PT HAS REMAINED AWAKE AND ALERT THIS SHIFT. PT FOLLOWS COMMANDS WELL, BUT IS CONFUSED AND SPEECH IS NONSENSICAL AT TIMES. PT HAS DENIED PAIN OR SOB THIS SHIFT. VITAL SIGNS STABLE. 02 TITRATED DOWN TO 2L O2 NC. PT RECIEVED DIALYSIS THIS SHIFT. PT TOLERATING PO INTAKE WELL. PICC TO MARIELA REMAINS C/D/I. PT SPOUSE AT BEDSIDE THIS AFTERNOON. WILL CONTINUE TO MONITOR AND REPORT OFF TO ONCOMING RN.
--- NOTE | 2021-11-18 20:00 | NUR ---
Assumed Care. AOx3, slow to respond, soft voice, scratchy. Has periods of confusion off and on. LS coarse, occational cough. Sats >90% on 2L. Drops easily when NC is off all the way to the 70's. Easily fatiqued. HR sinus on monitor rate in the 60's. BP with low diastolic. Abd mild distention, non-tender. BT active. Perma Cath to right upper chest, dressing CDI. PICC line flushed. REpositoned, skin with some bruising healing, redness in groin and skin folds, powder applied. water given. denies any pain or discomfort. Repositioned and boosted in bed. Call light in reach.
[2021-11-19 04:05] LABS: Albumin, Blood 2.7 g/dL (3.4-5.0); Anion Gap 9 mmol/L (6-16); Blood Urea Nitrogen 79 mg/dL (8-24); Bun/Creatinine Ratio 22.3 (12.0-20.0); CO2, Blood 33 mmol/L (21-32); Calcium, Blood 8.9 mg/dL (8.5-10.1); Chloride, Blood 97 mmol/L (98-108); Creatinine, Blood 3.54 mg/dL (0.40-1.00); Glomerular Filtration Rate 15 (60-); Glucose, Blood 175 mg/dL (70-99); Phosphorus, Blood 6.8 mg/dL (2.5-4.9); Potassium, Blood 4.8 mmol/L (3.5-5.5); Sodium, Blood 139 mmol/L (136-145)
--- NOTE | 2021-11-19 04:05 | NUR ---
O2 WAS INCREASED DUE TO DESATS INTO MID 80'S WHILE SHE SLEPT TURNED HER BACK TO 6 LITERS
--- NOTE | 2021-11-19 05:20 | NUR ---
SHIFT SUMMARY: AOx3, slow to respond, only had one episode when she was slightly confused, but was easily reoriented. voice is soft spoken, able to make needs known. LS coarse that clears in upper lobes when she coughs. Increased from 2L to 6L NC while she slept tonight to keep sats >90%. Sinus with rate in the 70's. Edema to BLE. Oliguria with no urine output this shift. Abdomin soft, non-tender, last BM 11/16. Skin fold has some minor skin tears and redness that are in healing stages. Labs continue to show increase in phosphorus 6.8, creatine 3.54, BUN 79. She is suppose to have dialysis again today. Vitals have been stable. BP still with low diastolic. No other changes to note will continue to monitor till dayshift arrives.
--- NOTE | 2021-11-19 13:24 | NUR ---
Spiritual Care visit. Pt. is sitting up in bed and welcomes my visit. [id number] is present. Pts. voice is soft but she can clearly communicate. Pt. is unsettled by the "Things We Care to Know" sheet posted in her room. Pt. verbalizes that it doesn't reflect who she is anymore. Listen clearly and offer to remove the logistics clerk. Pt. verbalized that she wants to talk to her about it. Empathitically listen. With the Pts. permission, prayed with Pt. Pt. displayed evidence of agreement and trust. Pt. verbalized gratitude for the spiritual care visit.
--- NOTE | 2021-11-19 17:32 | NUR ---
SHIFT SUMMARY NO ACUTE CHANGES THIS SHIFT. PT HAS REMAINED AWAKE, ALERT, AND ORIENTED WITH BREIF PERIODS OF CONFUSION AT TIMES. PT ANSWERS QUESTIONS APPROPRIATELY. SPEECH IS SOFT. PT HAS DENIED PAIN OR DISCOMFORT. PT RECIEVED DIALYSIS THIS SHIFT IN DIALYSIS ROOM. DIALYSIS CATH REMAINS C/D/I. PICC TO MARIELA REMAINS C/D/I, SALINE LOCKED. PT WITH MINIMAL APPETITE THIS SHIFT. PT WITHOUT ANY VOIDS THIS SHIFT. VITAL SIGNS STABLE. PT TITRATED DOWN TO 4L 02 NC. PT SPOUSE AT BEDSIDE THIS AFTERNOON. WILL CONTINUE TO MONITOR AND REPORT OFF TO ONCOMING RN.
--- NOTE | 2021-11-19 19:35 | NUR ---
ASSUMED PT CARE FROM LION CASTANEDA AT 1900. PT TRANSFERRED TO PCU 11 AT 1930. YANA TO ASSUME CARE AT THIS TIME. PT ALERT AND ORIENTED. MAKING NEEDS KNOWN. VSS AT TIME OF TRANSFER, SEE FLOWSHEET.
[2021-11-20 03:30] LABS: Hematocrit 23.6 % (33.0-51.0); Hemoglobin 7.1 g/dL (11.5-16.0)
--- NOTE | 2021-11-20 05:20 | NUR ---
SHIFT SUMMARY ASSUMED CARE OF PT AT 1940, ICU TRANSFER. PT ALERT AND ORIENTED X4, SLOW TO RESPOND. NO C/O PAIN OR DISCOMFORT. AFEBRILE. HR SR 60-70'S. DIASTOLIC BP SOFT, MAP REMAINS OVER 65. ON 8L OXYMIZER WHILE ASLEEP, SATS OVER 90%. WHILE AWAKE 2-4L TO MAINTAIN SATS. LUNG SOUNDS CLEAR IN UPPER LOBES, COARSE IN BASES. OLIGURIA. PICC IN MARIELA DRAWS BLOOD, CAPS CHANGED. Q2 TURNS. IN BED SLEEPING WITH CALL ALARM AT SIDE, WILL CONTINUE TO MONITOR UNTIL REPORT GIVEN TO DAYSHIFT RN
--- NOTE | 2021-11-20 17:56 | NUR ---
SHIFT SUMMARY: PT CONTINUES ALERT AND ORIENTED, SLOW TO RESPOND TO QUESTIONS, BUT ANSWERING APPROPRIATELY AND COOPERATIVE WITH CARE. PT RECEIVING O2 VIA OXYMIZER, CURRENT SETTING 6 L/MIN, O2 SATS >92%. SR ON MONITOR W/RATE IN 70s, VSS W/MAP >65. LAST HD 11/19, PLAN FOR NEXT HD IS 11/21, DIALYSIS PORT WNL. LOW APPETITE CONTINUES DESPITE EFFORTS FROM STAFF AND FAMILY TO ENCOURAGE INCREASED PO INTAKE. PT TOLERATING PILLS WHOLE IN APPLESAUCE. PT WITH ONE UNMEASURED VOID THIS SHIFT, RECEIVES BEDBATH, MEPILEX TO COCCYX REPLACED, REPOSITIONING PER PROTOCOL. AT THIS TIME, PT RESTING QUIETLY IN BED W/FAMILY AT BEDSIDE AND CALL LIGHT WITHIN REACH. WILL CONTINUE TO MONITOR AND TREAT ACCORDINGLY UNTIL CHANGE OF SHIFT.
[2021-11-21 04:23] LABS: Albumin, Blood 2.6 g/dL (3.4-5.0); Anion Gap 12 mmol/L (6-16); Blood Urea Nitrogen 110 mg/dL (8-24); Bun/Creatinine Ratio 24.6 (12.0-20.0); CO2, Blood 27 mmol/L (21-32); Calcium, Blood 8.8 mg/dL (8.5-10.1); Chloride, Blood 97 mmol/L (98-108); Creatinine, Blood 4.48 mg/dL (0.40-1.00); Glomerular Filtration Rate 11 (60-); Glucose, Blood 137 mg/dL (70-99); Phosphorus, Blood 5.6 mg/dL (2.5-4.9); Potassium, Blood 4.9 mmol/L (3.5-5.5); Sodium, Blood 136 mmol/L (136-145)
--- NOTE | 2021-11-21 06:06 | NUR ---
SHIFT SUMMARY PT ALERT AND ORIENTED X4. SLOW TO RESPOND, BUT CAN MAKE NEEDS KNOWN AND COOPERATIVE TO CARE. BP STABLE. DENIES PAIN OR DISCOMFORT. ON 6L NC, SATS OVER 90%. SATS IMPROVED WHILE AWAKE. PT REFUSES CPAP/BIPAP. HR SR 70-80'S. AFEBRILE. Q2 TURNS. IN BED SLEEPING WITH CALL ALARM AT SIDE, WILL CONTINUE TO MONITOR TILL REPORT GIVEN TO DAYSHIFT RN
--- NOTE | 2021-11-21 09:26 | NUR ---
VIPIN WAS TAKEN TO DIALYSIS. SHE HAS BEEN ENGAGING AND COOPERATIVE THIS AM. HER LUNGS ARE COARSE IN THE UPPER LOBES AND DIMINISHED IN THE BASES. SHE IS ON 5L/NC WITH SATS LO 90S. HER IS BY HER SIDE. SHE TAKES HER MEDS WITHOUT INCIDENT. NO PERIPHERAL EDEMA NOTED, PULSES STRONG X4. SHE DOES COMPLAIN THAT HER TUMMY IS UPSET AND DID NOT WANT HER BREAKFAST. SHE DOES SIT UPRIGHT TO TAKE HER MEDS AND DRINK HER FLUIDS. NO CHOKING OR COUGHING NOTED.
--- NOTE | 2021-11-21 13:30 | NUR ---
WHEN VIPIN RETURNED FROM DIALYSIS SHE WAS COLD AND TIRED. SHE REQUESTED TO HOLD OFF LUNCH AND TO TRY TO TAKE A NAP. WHEN GOING IN TO GIVE HER MEDS AND REASSESS, SHE IS ASKING TO USE THE BEDPAN. SPOT CHECK HER SPO2 AND IT IS HIGH 70'S-LOW 80'S. NASAL CANNULA SWITCHED TO HIFLO NC AND INCREASED TO 9L TO GET SATS BACK UP TO 90-91% SHE DID NOT COMPLAIN OF SHORTNESS OF BREATH. WICHO R/T NOTIFIED.
--- NOTE | 2021-11-21 13:54 | NUR ---
VIPIN IS SITTING UPRIGHT, CARRYING ON CONVERSATIN. DOING WELL WITH THE OXYGEN NOW. SHE WAS ABLE TO VOID USING THE BEDPAN.
[2021-11-21 17:49] LABS: SARS-Cov-2 (COVID-19) PCR, MMC NEGATIVE (NEGATIVE)
--- NOTE | 2021-11-21 18:01 | NUR ---
VIPIN ATE HER ZUCCHINI OFF HER DINNER TRAY. SHE WANTS TO GO OUTSIDE. SHE IS FEELING FRUSTRATED AND A BIT DEPRESSED. SHE HAS TAKEN ALL HER MEDS TODAY BUT HASN'T MUCH OF AN APPETITE FOR MEALS. SHE IS COUGHING STRONGER, MINIMAL RETURN SHE IS ABLE TO TAKE IN FLUIDS WITHOUT INCIDENT. HER OXYGEN VIA NASAL CANNULA IS AT 6L WITH SATS >90%. SHE VOIDED ONCE POST DIALYSIS. SHE IS RECALLING CONVERSATIONS FROM THIS MORNING WITHOUT PROMPTING. SHE WANTS COMPANY. ASKING ABOUT THE BLOOD SUGARS AND INSULIN, SHE STATES SHE DID NOT HAVE DIABETES PRIOR TO HER ADMISSION. EDUCATION DONE.
--- NOTE | 2021-11-21 22:31 | NUR ---
ASSUMED PT CARE FORM JOSELITO SEYMOUR ON DAY SHIFT AT 1915. PT HAS BEEN A&OX3 FOR ME. COOPERATIVE AND PLEASENT. PT ABLE TO ROLE SELF IN BED WITH ASSISTANCE AND BE PALCED ON BEDPAN WITHOUT RESULTS. PT POSITIONED FOR COMFORT AFTER REMOVAL FROM BEDPAN. TOOK EVENING MEDICATIONS WITHOUT DIFFICUTLY, WHOLE WITH WATER. PT SITTING STRAIGHT UP IN BED, NO USE OF STRAWS. NO COUGHING OR CHOKING WHEN TAKING PILLS. PT NEEDS ENCOURAGMENT TO KEEP NC ON TO MAKE SURE O2 SATS REMAIN ABOVE 92%. PT IS COMPLAINT AND REPLACED NC IN NOSE. O2 SATS STABLE. CALL LIGHT IN REACH. BED ALARM ON.
--- NOTE | 2021-11-22 00:52 | NUR ---
PT SPONTANIOUSLY AWAKE. FRESH ICE PROVIDED AT REQUEST. DENIES NEEDS. CALL LIGHT IN REACH.
--- NOTE | 2021-11-22 05:05 | NUR ---
PT HAS SLEPT FOR THE LARGE PORTION OF THE NIGHT ALLOWING MEDICAL STAFF TO REPOSITION HER PERIOTICALLY. VITAL SIGNS REMAIN STABLE. CALL LIGHT IN REACH.
[2021-11-22 05:15] LABS: Albumin, Blood 2.4 g/dL (3.4-5.0); Anion Gap 9 mmol/L (6-16); Blood Urea Nitrogen 90 mg/dL (8-24); Bun/Creatinine Ratio 25.9 (12.0-20.0); CO2, Blood 30 mmol/L (21-32); Calcium, Blood 8.9 mg/dL (8.5-10.1); Chloride, Blood 100 mmol/L (98-108); Creatinine, Blood 3.47 mg/dL (0.40-1.00); Glomerular Filtration Rate 15 (60-); Glucose, Blood 149 mg/dL (70-99); Phosphorus, Blood 4.8 mg/dL (2.5-4.9); Potassium, Blood 4.6 mmol/L (3.5-5.5); Sodium, Blood 139 mmol/L (136-145)
--- NOTE | 2021-11-22 16:43 | NUR ---
ASSUMED CARE OF PT FROM LION MARTINEZ PT RESTING IN BED, USED BEDPAN. CALL LIGHT IN REACH. 6L HUMIDIFIED O2 IN PLACE. FAMILY AT BEDSIDE.
--- NOTE | 2021-11-22 16:58 | NUR ---
PT SUMMARY: PT HAS BEEN PLEASANT AND COOPERATIVE FOR THE SHIFT, ABLE TO MAKE NEEDS KNOWN, NO DIALYSIS TX FOR TODAY PER DR WEAVER, PT WAS SEEN TODAY VIA FACETIME CALL, CHANGES MADE TO [facility] ALSO ADDRESSED THAT PT IS NOT READY YET FOR SNF PLACEMENT MIGHT NEED ANOTHER WEEK TO GET PT ON SCHEDULED BASIS PER DIALYSIS TX, AND FAMILY AT BEDSIDE AWARE OF THE PLANS. VITALS HRR SR 70'S, BP SYSTOLIC 130'S DIASTOLIC 40-50'S, MAP ABOVE 60'S, SATS KEPT ABOVE 90% PT SWITCHED TO HIFLO WITH HUMIDIFIER AT 6L PT TOLERATING WELL STILL HAS WITH EXERTION. HAD ABOUT 400MLS OUTPUT AND A REGULAR BOWEL MOVEMENT FOR THE SHIFT, WAS UP ON THE COMMODE ONE TIME AND WHEELCHAIR AFTER LUNCH TIME FAMILY WAS ABLE TO STROLL PT AROUND THE UNIT, PT TRANSFERS VIA CROSS TYPE LIFT SHEET PT TOLERATED. PT ALSO TOLERATING DIET COMPLIANT WITH SPOONFULLS FOR FLUID INTAKE, TOOK MEDS WITH APPLESAUCE WITH NO ISSUES. PT STILL HAS SOME EPISODES OF CONFUSION OR SOMETIMES WILL REPEAT HERSELF BUT OTHERWISE COOPERATIVE, NO OTHER ISSUES REPORTED FOR THE SHIFT, CALLS APPRORIATELY, REPORT GIVEN TO ADELE SEYMOUR WILL CONTINUE TO MONITOR
--- NOTE | 2021-11-22 22:55 | NUR ---
CARE ASSUMPTION PT LYING IN BED IN NO DISTRESS W O2 SATS >90% ON 6L NC. PT IS ALERT AND COMMUNICATING APPROPRIATELY. PT APPEARS WEAK AND SPEAKS W A VERY SOFT VOICE. VSS AND AFEBRILE. TELE SHOWING SR IN THE 70'S. PT DENYING ANY FURTHER NEEDS AT THAT TIME.
[2021-11-23 04:23] LABS: BASOPHILS ABSOLUTE AUTO 0.01 K/mm3 (0.00-0.23); BASOPHILS PERCENT AUTO 0 % (0-2); EOSINOPHILS ABSOLUTE AUTO 0.02 K/mm3 (0.00-0.68); EOSINOPHILS PERCENT AUTO 0 % (0-6); Hematocrit 19.5 % (33.0-51.0); IMMATURE GRAN ABSOLUTE AUTO 0.04 K/mm3 (0.00-0.10); IMMATURE GRAN PERCENT AUTO 0 % (0-1); LYMPHOCYTES ABSOLUTE AUTO 0.71 K/mm3 (0.84-5.20); LYMPHOCYTES PERCENT AUTO 7 % (21-46); MONOCYTES ABSOLUTE AUTO 0.48 K/mm3 (0.16-1.47); MONOCYTES PERCENT AUTO 5 % (4-13); Mean Corpuscular HGB 31.1 pg (26.0-34.0); Mean Corpuscular HGB Conc 30.3 g/dL (31.5-36.5); Mean Corpuscular Volume 103 fL (80-100); Mean Platelet Volume 12.3 fL (9.1-12.4); NEUTROPHILS ABSOLUTE AUTO 8.94 K/mm3 (1.96-9.15); NEUTROPHILS PERCENT AUTO 88 % (41-73); RDW Coefficient Variation 25.5 % (11.7-14.2); RDW Standard Deviation 92.3 fL (35.1-46.3)
[2021-11-23 04:28] LABS: Platelet Count 35 K/mm3 (150-400)
[2021-11-23 04:29] LABS: Hemoglobin 5.9 g/dL (11.5-16.0)
[2021-11-23 04:37] LABS: Albumin, Blood 2.4 g/dL (3.4-5.0); Anion Gap 9 mmol/L (6-16); Blood Urea Nitrogen 117 mg/dL (8-24); Bun/Creatinine Ratio 28.7 (12.0-20.0); CO2, Blood 28 mmol/L (21-32); Calcium, Blood 8.8 mg/dL (8.5-10.1); Chloride, Blood 101 mmol/L (98-108); Creatinine, Blood 4.07 mg/dL (0.40-1.00); Glomerular Filtration Rate 13 (60-); Glucose, Blood 127 mg/dL (70-99); Phosphorus, Blood 4.8 mg/dL (2.5-4.9); Sodium, Blood 138 mmol/L (136-145)
--- NOTE | 2021-11-23 06:11 | NUR ---
PHYSICIAN ALLERGIST IMMUNOLOGIST SUMMARY PT IS ALERT AND COMMUNICATING APPROPRIATELY FOR THE MOST PART ONLY HAVING A COUPLE MOMENTS WHERE SHE WAS CONFUSED ABOUT WHAT SHE WAS DOING. PT BEGAN THE SHIFT W O2 SATS >90% ON 6L NC HOWEVER, THE PT TOOK O2 OFF TO WIPE HER NOSE CAUSING HER O2 SATS TO RAPIDLY DROP INTO THE LOW 70'S REQUIRING INCREASED O2 TO CATCH UP. PT'S O2 REQUIREMENTS CONTINUED TO GO UP THIS SHIFT NEEDING 10-14L NC TO MAINTAIN O2 SATS >90%. PT'S AM LABS CAME BACK W CRITICALLY LOW HGB AND PLT'S SO PROVIDER CONTACTED AND 1 UNIT PRBC'S WERE ORDERED. PT HAVING DECENT AMOUNT OF URINE OUTPUT THIS SHIFT HAVING ONE INCONTINENT VOID AND TWO CONTINENT VOIDS. PT AWAKE MOST OF THE NIGHT ONLY SLEEPING OFF AND ON THROUGHOUT THE SHIFT. AWAITING BLOOD BANK TO SEND PRBC'S. WILL REPORT TO ONCOMING RN.
--- NOTE | 2021-11-23 09:15 | NUR ---
UPDATE PT TAKEN TO DIALYSIS ROOM FOR TREATMENT
[2021-11-23 09:17] LABS: Percent Saturation 22.3 % (15.0-50.0)
[2021-11-23 09:47] LABS: Albumin, Blood 2.5 g/dL (3.4-5.0); Albumin/Globulin Ratio 0.9 (0.8-1.8); Bilirubin, Direct 2.9 mg/dL (0.0-0.3); Bilirubin, Indirect 0.9 mg/dL (0.1-0.7); Bilirubin, Total 3.8 mg/dL (0.1-1.0); Globulin, Blood 2.9 g/dL (2.2-4.0); Total Protein, Blood 5.4 g/dL (6.4-8.2)
[2021-11-23 13:31] LABS: Mean Corpuscular HGB Conc 31.8 g/dL (31.5-36.5); Mean Platelet Volume 12.2 fL (9.1-12.4); RDW Coefficient Variation 25.3 % (11.7-14.2); RDW Standard Deviation 83.9 fL (35.1-46.3); Red Blood Cell Count 2.26 M/mm3 (3.80-5.20); White Blood Cell Count 7.79 K/mm3 (4.00-11.30)
[2021-11-23 13:54] LABS: Mean Corpuscular Volume 97 fL (80-100)
[2021-11-23 13:55] LABS: Platelet Count 32 K/mm3 (150-400)
--- NOTE | 2021-11-23 15:12 | NUR ---
PHYSICIAN NOTIFIED PHYSICIAN NOTIFIED OF PT'S LOW MAP IN 50'S. MIDODRINE ORDERS CHANGED TO TID PER DR ORDER.
--- NOTE | 2021-11-23 18:10 | NUR ---
SHIFT SUMMARY ASSUMED CARE OF PT AT 1430. PT ALERT AND ORIENTED X 4. FORGETFUL AT TIMES. BED ALARM IN PLACE. FAMILY AT BEDSIDE. OXYGEN SATURATION MAINTAINED ABOVE 92% ON 10 L VIA NC. PT TURNED Q 2 HOURS. BP HYPOTENSIVE, PHYSICIAN NOTFIED, SEE ORDERS AND EHR. BP STABLE AT THIS TIME, MAP ABOVE 65. NO CP OR PRESSURE REPORTED. CALL LIGHT WITHIN REACH. BED ALARM IN PLACE. WILL CONT TO MONITOR UNTIL REPORT GIVEN TO NIGHTSHIFT RN.
[2021-11-24 05:03] LABS: Albumin, Blood 2.2 g/dL (3.4-5.0); Anion Gap 7 mmol/L (6-16); Blood Urea Nitrogen 62 mg/dL (8-24); Bun/Creatinine Ratio 23.6 (12.0-20.0); CO2, Blood 31 mmol/L (21-32); Calcium, Blood 8.5 mg/dL (8.5-10.1); Chloride, Blood 101 mmol/L (98-108); Creatinine, Blood 2.63 mg/dL (0.40-1.00); Glomerular Filtration Rate 21 (60-); Glucose, Blood 132 mg/dL (70-99); Potassium, Blood 4.3 mmol/L (3.5-5.5); Sodium, Blood 139 mmol/L (136-145)
[2021-11-24 05:35] LABS: BASOPHILS PERCENT AUTO 0 % (0-2); EOSINOPHILS ABSOLUTE AUTO 0.03 K/mm3 (0.00-0.68); EOSINOPHILS PERCENT AUTO 0 % (0-6); Hematocrit 20.2 % (33.0-51.0); Hemoglobin 6.1 g/dL (11.5-16.0); IMMATURE GRAN ABSOLUTE AUTO 0.03 K/mm3 (0.00-0.10); IMMATURE GRAN PERCENT AUTO 0 % (0-1); LYMPHOCYTES ABSOLUTE AUTO 0.67 K/mm3 (0.84-5.20); LYMPHOCYTES PERCENT AUTO 9 % (21-46); MONOCYTES ABSOLUTE AUTO 0.33 K/mm3 (0.16-1.47); MONOCYTES PERCENT AUTO 4 % (4-13); Mean Corpuscular HGB 31.4 pg (26.0-34.0); Mean Corpuscular HGB Conc 30.2 g/dL (31.5-36.5); Mean Platelet Volume 12.8 fL (9.1-12.4); NEUTROPHILS ABSOLUTE AUTO 6.86 K/mm3 (1.96-9.15); NEUTROPHILS PERCENT AUTO 87 % (41-73); NRBC ABSOLUTE 0.02 K/mm3 (0.00-0.02); NRBC Auto 0.3 /100 WBC (0.0-0.2); RDW Standard Deviation 91.5 fL (35.1-46.3); Red Blood Cell Count 1.94 M/mm3 (3.80-5.20); White Blood Cell Count 7.92 K/mm3 (4.00-11.30)
[2021-11-24 05:52] LABS: Mean Corpuscular Volume 104 fL (80-100)
[2021-11-24 05:54] LABS: Platelet Count 32 K/mm3 (150-400)
--- NOTE | 2021-11-24 06:04 | NUR ---
MOTOR VEHICLE REPRESENTATIVE SUMMARY PT IS ALERT AND ORIENTED BUT HAS HAD MOMENTS OF CONFUSION ABOUT HER SITUATION AND THE TIME OF DAY. PT HAD MULTIPLE EPISODES OF REMOVING HER O2 CAUSING 02 SATS TO DROP INTO THE 70'S. OTHER THEN WHEN HER O2 WAS REMOVED SHE HAS MAINTAINED O2 SATS >90% ON 8-10L NC. BP WNL AND STABLE THIS SHIFT DESPITE WIDE PULSE PRESSURE. PT AFBRILE. TELE SHOWING SR 70'S-80'S THIS SHIFT. PT VOIDED ONCE THIS SHIFT, SEE i&O'S FOR DETAILS. PT HAD BLOODY NOSE IN LEFT NARE THIS SHIFT SO PROVIDER WAS CONTACTED AND NO NEW ORDERS WERE GIVEN. PT ABLE TO SLEEP FOR MOST OF THE NIGHT. HGB THIS AM AT 6.1 SO PROVIDER CONTACTED AND 1 UNIT PRBC'S ORDERED. WILL REPORT TO ONCOMING RN.
--- NOTE | 2021-11-24 09:35 | NUR ---
UPDATE PT TAKEN TO DIALYSIS ROOM FOR TREATMENT. WILL AWAIT RETURN
[2021-11-24 13:54] LABS: BASOPHILS ABSOLUTE AUTO 0.01 K/mm3 (0.00-0.23); BASOPHILS PERCENT AUTO 0 % (0-2); EOSINOPHILS ABSOLUTE AUTO 0.07 K/mm3 (0.00-0.68); EOSINOPHILS PERCENT AUTO 1 % (0-6); Hematocrit 23.2 % (33.0-51.0); Hemoglobin 7.5 g/dL (11.5-16.0); IMMATURE GRAN ABSOLUTE AUTO 0.07 K/mm3 (0.00-0.10); IMMATURE GRAN PERCENT AUTO 1 % (0-1); LYMPHOCYTES ABSOLUTE AUTO 0.64 K/mm3 (0.84-5.20); LYMPHOCYTES PERCENT AUTO 6 % (21-46); MONOCYTES ABSOLUTE AUTO 0.44 K/mm3 (0.16-1.47); MONOCYTES PERCENT AUTO 4 % (4-13); Mean Corpuscular HGB 32.6 pg (26.0-34.0); Mean Corpuscular HGB Conc 32.3 g/dL (31.5-36.5); Mean Corpuscular Volume 101 fL (80-100); NEUTROPHILS ABSOLUTE AUTO 9.15 K/mm3 (1.96-9.15); NEUTROPHILS PERCENT AUTO 88 % (41-73); NRBC ABSOLUTE 0.04 K/mm3 (0.00-0.02); NRBC Auto 0.4 /100 WBC (0.0-0.2); RDW Coefficient Variation 25.8 % (11.7-14.2); RDW Standard Deviation 86.1 fL (35.1-46.3); White Blood Cell Count 10.38 K/mm3 (4.00-11.30)
[2021-11-24 14:02] LABS: Mean Platelet Volume 13.3 fL (9.1-12.4); Platelet Count 33 K/mm3 (150-400)
[2021-11-24 14:32] LABS: International Normalized Ratio 1.64; Prothrombin Time Results 16.7 Sec (9.7-11.5)
--- NOTE | 2021-11-24 14:59 | NUR ---
Spiritual Care Visit. Pt. is awake in bed and welcomes my visit. Spouse is present. Pt. is distressed by apparent setbacks in her recovery. Listen empathetically with a calming presence. Give pastoral care and encouragement. Pt. displays evidence of agreement and trust. Elsah with Pt. Pt. and spouse both verbalize gratitude for the spiritual care visit.
--- NOTE | 2021-11-24 17:35 | NUR ---
SHIFT SUMMARY PT REMAINED ALERT AND ORIENTED ALL SHIFT. BP STABLE. HR NSR 70'S. PT DENIED ANY PAIN ALL SHIFT. PT CHANGED FROM HIGH FLOW NC TO AIRVO AT 40L AND 60% FIO2 WITH SATS >90%. PT HAVING FREQUENT NOSE BLEEDS THIS SHIFT. 1U PRBC TRANSFUSED THIS AM. PT HAD DIALYSIS TODAY. PT COMPLAINED OF NAUSEA ON AND OFF THIS SHIFT AND HAS POOR APPETITE. MINIMAL URINE OUTPUT THIS SHIFT. PT REPOSITIONED Q2H. FAMILY AT BEDSIDE. WILL CONTINUE TO MONITOR AND REPORT TO ONCOMING RN
--- NOTE | 2021-11-25 04:20 | NUR ---
SHIFT SUMMARY PT RESTED WELL THROUGH THE NIGHT. ALERT AND ORIENTED, ABLE TO MAKE NEEDS KNOWN. COOPERATIVE [facility] PLAN OF CARE, BUT DOES SEEM TO PULL OFF CPAP OR AIRVO CANNULA WHEN SLEEPING. WHEN PATIENT PULLS OF O2, PT RAPIDLY DESATS TO 50-60%. RECOVERS FAIRLY WELL. BED BATH GIVEN, NO BLOODY NOSES THIS EVENING. PENDING LABS - WILL UPDATE ONCE RESULTED. NO BM, NO UOP - DAILY DIALYSIS. NO PAIN. NO PRN'S THROUGHOUT NIGHT. ALL VSS - BP SLIGHTLY LOW, RECEIVING MIDODRINE. CALL LIGHT WITHIN REACH, BED IN LOWEST POSITION. WILL CONTINUE TO MONITOR.
[2021-11-25 05:07] LABS: Albumin, Blood 2.2 g/dL (3.4-5.0); Anion Gap 8 mmol/L (6-16); Blood Urea Nitrogen 61 mg/dL (8-24); Bun/Creatinine Ratio 20.1 (12.0-20.0); CO2, Blood 29 mmol/L (21-32); Calcium, Blood 8.8 mg/dL (8.5-10.1); Chloride, Blood 100 mmol/L (98-108); Creatinine, Blood 3.03 mg/dL (0.40-1.00); Glomerular Filtration Rate 18 (60-); Glucose, Blood 139 mg/dL (70-99); Phosphorus, Blood 3.5 mg/dL (2.5-4.9); Potassium, Blood 4.9 mmol/L (3.5-5.5); Sodium, Blood 137 mmol/L (136-145)
[2021-11-25 05:26] LABS: BASOPHILS PERCENT AUTO 0 % (0-2); EOSINOPHILS ABSOLUTE AUTO 0.03 K/mm3 (0.00-0.68); EOSINOPHILS PERCENT AUTO 0 % (0-6); Hematocrit 21.2 % (33.0-51.0); Hemoglobin 6.8 g/dL (11.5-16.0); IMMATURE GRAN ABSOLUTE AUTO 0.04 K/mm3 (0.00-0.10); IMMATURE GRAN PERCENT AUTO 1 % (0-1); LYMPHOCYTES ABSOLUTE AUTO 0.58 K/mm3 (0.84-5.20); LYMPHOCYTES PERCENT AUTO 8 % (21-46); MONOCYTES ABSOLUTE AUTO 0.25 K/mm3 (0.16-1.47); MONOCYTES PERCENT AUTO 3 % (4-13); Mean Corpuscular HGB 32.1 pg (26.0-34.0); Mean Corpuscular HGB Conc 32.1 g/dL (31.5-36.5); Mean Corpuscular Volume 100 fL (80-100); Mean Platelet Volume 12.8 fL (9.1-12.4); NEUTROPHILS ABSOLUTE AUTO 6.82 K/mm3 (1.96-9.15); NEUTROPHILS PERCENT AUTO 88 % (41-73); NRBC ABSOLUTE 0.03 K/mm3 (0.00-0.02); NRBC Auto 0.4 /100 WBC (0.0-0.2); RDW Coefficient Variation 25.4 % (11.7-14.2); RDW Standard Deviation 86.5 fL (35.1-46.3); Red Blood Cell Count 2.12 M/mm3 (3.80-5.20); White Blood Cell Count 7.72 K/mm3 (4.00-11.30)
[2021-11-25 05:32] LABS: Platelet Count 29 K/mm3 (150-400)
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
[2021-11-26 04:34] LABS: BASOPHILS ABSOLUTE AUTO 0.01 K/mm3 (0.00-0.23); BASOPHILS PERCENT AUTO 0 % (0-2); EOSINOPHILS ABSOLUTE AUTO 0.03 K/mm3 (0.00-0.68); EOSINOPHILS PERCENT AUTO 0 % (0-6); Hematocrit 23.3 % (33.0-51.0); Hemoglobin 7.4 g/dL (11.5-16.0); IMMATURE GRAN ABSOLUTE AUTO 0.04 K/mm3 (0.00-0.10); IMMATURE GRAN PERCENT AUTO 0 % (0-1); LYMPHOCYTES ABSOLUTE AUTO 0.77 K/mm3 (0.84-5.20); LYMPHOCYTES PERCENT AUTO 9 % (21-46); MONOCYTES PERCENT AUTO 2 % (4-13); Mean Corpuscular HGB 31.2 pg (26.0-34.0); Mean Corpuscular HGB Conc 31.8 g/dL (31.5-36.5); Mean Corpuscular Volume 98 fL (80-100); Mean Platelet Volume 12.2 fL (9.1-12.4); NEUTROPHILS ABSOLUTE AUTO 7.92 K/mm3 (1.96-9.15); NEUTROPHILS PERCENT AUTO 88 % (41-73); NRBC ABSOLUTE 0.06 K/mm3 (0.00-0.02); NRBC Auto 0.7 /100 WBC (0.0-0.2); RDW Coefficient Variation 24.6 % (11.7-14.2); RDW Standard Deviation 81.4 fL (35.1-46.3); Red Blood Cell Count 2.37 M/mm3 (3.80-5.20); White Blood Cell Count 8.97 K/mm3 (4.00-11.30)
[2021-11-26 04:42] LABS: Platelet Count 25 K/mm3 (150-400)
[2021-11-26 04:50] LABS: Albumin, Blood 2.1 g/dL (3.4-5.0); Anion Gap 7 mmol/L (6-16); Blood Urea Nitrogen 48 mg/dL (8-24); Bun/Creatinine Ratio 19.3 (12.0-20.0); CO2, Blood 32 mmol/L (21-32); Calcium, Blood 8.4 mg/dL (8.5-10.1); Chloride, Blood 103 mmol/L (98-108); Creatinine, Blood 2.49 mg/dL (0.40-1.00); Glomerular Filtration Rate 23 (60-); Glucose, Blood 162 mg/dL (70-99); Potassium, Blood 3.9 mmol/L (3.5-5.5); Sodium, Blood 142 mmol/L (136-145)
--- NOTE | 2021-11-26 06:20 | NUR ---
NO ACUTE EVENTS OVERNIGHT LAST NIGHT. AIRVO SETTINGS AT 40 LPM / 65% FiO2 AND BIPAP AT NIGHT. OXYGEN SATURATION LEVELS VASCILLATE BETWEEN 88 AND 96% ON BIPAP. PT CONTINUES TO BE TACHYPNEIC AT 24-30 BREATHS PER MINUTE, DYSPNEIC WITH MINIMAL EXERTION, AND SpO2 DROPS QUICKLY IF/WHEN PT REMOVES HER NASAL CANNULA OR MASK. HEMOGLOBIN 7.4 TRENDING UP STATUS POST TRANSFUSION OF 1 UNIT OF PRBC YESTERDAY. NO NOSEBLEEDS OR OTHER VISIBLE SIGNS OF BLEEDING OVERNIGHT. PLATELET COUNT 25, TRENDING DOWN FOR THE FOURTH DAY IM A ROW. CREATININE 2.49 AND GFR 23, BOTH CONTINUING TO IMPROVE.
[2021-11-26 10:07] LABS: Albumin/Globulin Ratio 0.7 (0.8-1.8); Bilirubin, Direct 3.2 mg/dL (0.0-0.3); Bilirubin, Indirect 1.1 mg/dL (0.1-0.7); Bilirubin, Total 4.3 mg/dL (0.1-1.0); Calcium, Blood 8.3 mg/dL (8.5-10.1); Creatinine, Blood 2.79 mg/dL (0.40-1.00); Globulin, Blood 2.7 g/dL (2.2-4.0); Potassium, Blood 3.7 mmol/L (3.5-5.5); Total Protein, Blood 4.7 g/dL (6.4-8.2)
[2021-11-26 10:23] LABS: International Normalized Ratio 1.86; Prothrombin Time Results 18.8 Sec (9.7-11.5)
[2021-11-26 14:11] LABS: HEPARIN INDUCED PLATELET AB 0.176 OD (0.000-0.400)
--- NOTE | 2021-11-26 18:26 | NUR ---
PT'S O2 NEEDS HAVE INCREASED AND DECREASED T/O THE DAY, AIRVO 40L 60% WITH SPO2 >92%. PT HAD DIALYSIS TODAY, PRESSURES BECAME SOFT DURING DIALYSIS, UPON RETURNGING FROM DIALYSIS PT'S BP REMAINED SOFT, DR LR IS CALLED ABOUT PRESSURES, ORDER TO CONTINUE TO MONITOR PRESSURES. AFTER WORKING WITH PHYSICA; THERAPY BP DOES IMPROVE WITH MAPS NOW AT 70, THIS IS ALSO AFTER RECIEVING MIDODRINE DOSE THIS EVENING. PT APPEARS MORE ACTIVE THIS EVENING THAN LAST NOC, MORE ENERGIC, VISITING WITH FMAILY. DYSPNEA HAS DECREASED T/O THE DAY, BUT DOES RETURN WITH ANY MOVEMENT. PT HAS NOT BEEN IMPULSIVE OR ATTEMPTING TO REMOVE O2 TODAY.
--- NOTE | 2021-11-27 05:34 | NUR ---
NO ACUTE EVENTS OVERNIGHT TONIGHT. MS. MIRANDA WAS MORE TALKATIVE AND LESS DYSPNEIC WIH EXERTION COMPARED TO THE PREVIOUS NIGHT. SHE HAD 2 LARGE BOWEL MOVEMENTS OVERNIGHT, ONE BEING AN INCONTINENT EPISODE. CALAZIME APPLIED FOLLOWING KIKA CARE DUE TO SOME STOOL RELATED BREAKDOWN TO PERINEAL AND PERIRECTAL AREA. DR. MONSIVAIS ADVISED OF PATIENT'S MAP DROPPING BELOW 60, LOW 53 OVERNIGHT. PT IS ASYMPTOMATIC. MIDODRINE ADMINISTERED ORDERED. DR. MONSIVAIS REVIEWED PT'S CHART AND NO ADDITIONAL INTERVENTIONS AT THIS TIME.
[2021-11-27 09:57] LABS: BASOPHILS ABSOLUTE AUTO 0.01 K/mm3 (0.00-0.23); BASOPHILS PERCENT AUTO 0 % (0-2); EOSINOPHILS ABSOLUTE AUTO 0.14 K/mm3 (0.00-0.68); EOSINOPHILS PERCENT AUTO 2 % (0-6); Hematocrit 25.1 % (33.0-51.0); Hemoglobin 7.9 g/dL (11.5-16.0); IMMATURE GRAN ABSOLUTE AUTO 0.03 K/mm3 (0.00-0.10); IMMATURE GRAN PERCENT AUTO 0 % (0-1); LYMPHOCYTES ABSOLUTE AUTO 1.05 K/mm3 (0.84-5.20); LYMPHOCYTES PERCENT AUTO 12 % (21-46); MONOCYTES ABSOLUTE AUTO 0.16 K/mm3 (0.16-1.47); MONOCYTES PERCENT AUTO 2 % (4-13); Mean Corpuscular HGB 31.1 pg (26.0-34.0); Mean Corpuscular HGB Conc 31.5 g/dL (31.5-36.5); Mean Corpuscular Volume 99 fL (80-100); NEUTROPHILS ABSOLUTE AUTO 7.48 K/mm3 (1.96-9.15); NEUTROPHILS PERCENT AUTO 84 % (41-73); NRBC ABSOLUTE 0.03 K/mm3 (0.00-0.02); NRBC Auto 0.3 /100 WBC (0.0-0.2); RDW Coefficient Variation 24.1 % (11.7-14.2); Red Blood Cell Count 2.54 M/mm3 (3.80-5.20); White Blood Cell Count 8.87 K/mm3 (4.00-11.30)
[2021-11-27 10:07] LABS: Platelet Count 25 K/mm3 (150-400)
[2021-11-27 10:26] LABS: Albumin, Blood 2.2 g/dL (3.4-5.0); Albumin/Globulin Ratio 0.8 (0.8-1.8); Bilirubin, Total 3.9 mg/dL (0.1-1.0); Calcium, Blood 8.4 mg/dL (8.5-10.1); Creatinine, Blood 3.16 mg/dL (0.40-1.00); Globulin, Blood 2.8 g/dL (2.2-4.0); Potassium, Blood 4.2 mmol/L (3.5-5.5)
--- NOTE | 2021-11-27 18:22 | NUR ---
PT A/O X3, ABLE TO MAKE NEEDS KNOWN. PT DID WORK EXTENSIVELY WITH PHYSICAL THERAPY AND OCCUPATIONAL THERAPY TODAY, WHICH SHE NOW SEEMS MORE TIRED THIS EVENING A RESULT. PT DID GO TO DIALYSIS TODAY, RAN FOR 3 HOURS. PT'S MAPS REMAIN SOFT BUT >55, PROVIDER IS AWARE, PT REMAINS ASYMPTOMATIC FROM PRESSURES. O2 NEEDS HAVE REMAINED UNCHANGED TODAY, SPO2 REMAINS GREATER THAN 92%. PT VISTING WITH FAMILY AT BEDSIDE T/O THE DAY. PT WAS ABLE TO GET UP BEDSIDE COMMODE TODAY WITH THERAPY BUT WAS A MAX ASSIST BACK TO BED, SHE IS NOW A LIFT PT
[2021-11-28 04:44] LABS: Hematocrit 21.8 % (33.0-51.0); Hemoglobin 6.6 g/dL (11.5-16.0); Mean Corpuscular HGB Conc 30.3 g/dL (31.5-36.5); Mean Corpuscular Volume 102 fL (80-100); NRBC ABSOLUTE 0.04 K/mm3 (0.00-0.02); NRBC Auto 0.6 /100 WBC (0.0-0.2); RDW Coefficient Variation 24.4 % (11.7-14.2); RDW Standard Deviation 86.3 fL (35.1-46.3); Red Blood Cell Count 2.13 M/mm3 (3.80-5.20); White Blood Cell Count 6.67 K/mm3 (4.00-11.30)
[2021-11-28 04:52] LABS: Mean Platelet Volume 13.2 fL (9.1-12.4); Platelet Count 19 K/mm3 (150-400)
--- NOTE | 2021-11-28 06:03 | NUR ---
SHIFT SUMMARY ASSUMED CARE OF PT AT 1900. PT IS A/OX4. HEART SOUNDS REGUALR, LUNG SOUNDS DIMINISHED AT THE BASES. PT WORE AIRVO OST OF THE NIGHT. PT DID NOT TOLERATE CPAPBECUASE SHE KEPT TAKING IT OFF TO DRINK FLUIDS. PT HAD SMALL AMOUINT OF BLOOD FROM NOSE. AIRVO SETTINGS 40L/50% NO TITRATION. PT WAS CONTINENT OF URINE, PT USED BEDPAN T/O THE NIGHT. PT BLOOD PRESSURES STABLE T/O THE NIGHT.
--- NOTE | 2021-11-28 09:51 | NUR ---
AM NOTE: PATIENT ALERT AND ORIENTED X3-4. ABLE TO MOVE ALL EXTREMITIES. HELPS WITH TURNS. OVERALL VERY WEAK. PERRLA. DENIES NUMBNESS/TINGLING. USING BEDPAN WHEN NEEDED. TELE SHOWING SINUS RHYTHM WITH HR 70-80'S. MAP 61 THIS AM, MORN MEDS GIVEN. PATIENT ASYMPTOMATIC WITH LOW MAP. 1+ EDEMA TO LOWER EXTREMITIES. DENIES CHEST PAIN/PRESSURE. ON AIRVO AT 40L AND 50% SATING LOW 90'S. DESATS WHEN EATING AND TALKING AT TIMES. LUNGS SOUNDING CLEAR AND DIM. OCCASIONAL COUGH. EATING VERY SMALL AMOUNTS THIS AM. STATES HER STOMACH FEELS "CRAMPY". DENIES SHARP PAINS. STATES HER NAUSEA COMES AND GOES. USING BEDPAN WHEN NEEDED. KIKA AREA/PANNUS RED WITH SOME IRRITATED SKIN. CLEANED AND POWDER APPLIED. PICC TO RIGHT UPPER ARM, FLUSHING AND DRAWING WELL, CAPS CHANGED THIS AM. RIGHT UPPER CHEST DIALYSIS CATH. AT DIALYSIS AT THIS TIME, PLAN TO TRANSFUSE 1 UNIT OF BLOOD WITH DIALYSIS.
--- NOTE | 2021-11-28 10:25 | NUR ---
DR. DILLARD BY TO SEE PATIENT. THIS RN UPDATED ON LABS SUCH HGB AND PLT. PLAN FOR DIALYSIS TO TRANSFUSE ONE UNIT PRBC.
[2021-11-28 14:08] LABS: Anion Gap 6 mmol/L (6-16); Blood Urea Nitrogen 31 mg/dL (8-24); Bun/Creatinine Ratio 16.8 (12.0-20.0); CO2, Blood 30 mmol/L (21-32); Calcium, Blood 8.7 mg/dL (8.5-10.1); Chloride, Blood 100 mmol/L (98-108); Creatinine, Blood 1.84 mg/dL (0.40-1.00); Glomerular Filtration Rate 32 (60-); Glucose, Blood 123 mg/dL (70-99); Phosphorus, Blood 2.3 mg/dL (2.5-4.9); Potassium, Blood 4.1 mmol/L (3.5-5.5); Sodium, Blood 136 mmol/L (136-145)
--- NOTE | 2021-11-28 17:50 | NUR ---
SHIFT SUMMARY: PATIENT ALERT AND ORIENTED X4. NEURO REMAINS UNCHANGED. SLEEPY THIS AFTERNOON. SEE PREVIOUS NOTE FOR UPDATES. NO CHANGES TO TELE. REMAINS ON AIRVO 40L AND 44%. SOB WITH MOVEMENT IN BED. SATING LOW 90'S. Q2 TURNING AND NEEDED. SMALL APPEATITE. DR. CHIN IN TO SEE PATIENT AND DR. WEAEVR ON VIDEO CALL. AND OTHER FAMILY MEMBERS VISITED THROUGHOUT THE DAY. PARTIAL BED BATH GIVEN. CALL LIGHT IN REACH. WILL CONTINUE TO MONITOR AND REPORT OFF.
[2021-11-29 04:49] LABS: BASOPHILS ABSOLUTE AUTO 0.01 K/mm3 (0.00-0.23); BASOPHILS PERCENT AUTO 0 % (0-2); EOSINOPHILS PERCENT AUTO 1 % (0-6); Hematocrit 22.6 % (33.0-51.0); Hemoglobin 7.4 g/dL (11.5-16.0); IMMATURE GRAN ABSOLUTE AUTO 0.03 K/mm3 (0.00-0.10); IMMATURE GRAN PERCENT AUTO 0 % (0-1); LYMPHOCYTES ABSOLUTE AUTO 0.92 K/mm3 (0.84-5.20); LYMPHOCYTES PERCENT AUTO 12 % (21-46); MONOCYTES ABSOLUTE AUTO 0.19 K/mm3 (0.16-1.47); MONOCYTES PERCENT AUTO 3 % (4-13); Mean Corpuscular HGB 33.3 pg (26.0-34.0); Mean Corpuscular HGB Conc 32.7 g/dL (31.5-36.5); Mean Corpuscular Volume 102 fL (80-100); NEUTROPHILS ABSOLUTE AUTO 6.47 K/mm3 (1.96-9.15); NEUTROPHILS PERCENT AUTO 84 % (41-73); NRBC ABSOLUTE 0.02 K/mm3 (0.00-0.02); NRBC Auto 0.3 /100 WBC (0.0-0.2); RDW Coefficient Variation 23.3 % (11.7-14.2); RDW Standard Deviation 80.4 fL (35.1-46.3); Red Blood Cell Count 2.22 M/mm3 (3.80-5.20); White Blood Cell Count 7.72 K/mm3 (4.00-11.30)
[2021-11-29 04:54] LABS: Mean Platelet Volume 13.6 fL (9.1-12.4); Platelet Count 21 K/mm3 (150-400)
--- NOTE | 2021-11-29 06:31 | NUR ---
SHIFT SUMMARY PT ALERT AND ORIENTED X 4. CONFUSED AT TIMES, SLOW TO RESPOND. USES CALL LIGHT NO ACUTE CHANGES T/O SHIFT. VSS. OXYGEN SATURAITON MAINTAINED ABOVE 90%,PT WORE CPAP T/O SHIFT, SEE EHR FOR SETTINGS. PT TURNED Q 2 HOURS. CALL LIGHT WITHIN REACH. WILL CONT TO MONITOR UNTIL REPORT GIVEN TO DAYSHIFT RN.
--- NOTE | 2021-11-29 10:46 | NUR ---
AM NOTE: PATIENT ALERT AND ORIENTED X4. FEELING "CRUMPY" THIS AM WITH SOME STOMACH CRAMPING/NAUSEA. MEDICATED PER EMAR. OVERALL WEAK. PERRLA. DENIES N/T. ABLE TO MOVE EXTREMITIES. Q2 TURNING AND NEEDED. TELE SHOWING SINSU RHYTHM WITH HR 70-80'S. DENIES CHEST PAIN/PRESSURE. BP ON SOFTER SIDE WITH MAP 61. MORN MEDS GIVEN. BLE EDEMA. REFUSED SCD'S. ON HIGH FLOW NASAL CANNULA AT 60L AND 80% AT THIS TIME SATING LOW 90'S. RT HAVING TO INCREASE FIO2 THROUGHOUT MORNING. LUNGS SOUNDING COARSE AND DIM. OCCASIONAL COUGH. PATIENT EXPELLED MODERATE SIZE BLOOD CLOT THIS AM. SPECIMIN SAVED AND DR. CHIN NOTIFIED, NO NEW ORDERS. PATIENT AT DIALYSIS AT THIS TIME. PLAN TO REPLACE BLOOD PRODUCTS THIS AM. USING BED FRANKS NEEDED. ABDOMINAL FOLD AND UNDER BREAST RED AND TENDER, CLEANED AND POWDER APPLIED. RIGHT CHEST DIALYSIS CATH. RIGHT UPPER ARM PICC LINE, DRAWING AND FLUSHING WELL, SALINE LOCKED. AND AUNT AT BEDSIDE.
[2021-11-29 13:28] LABS: Albumin, Blood 2.3 g/dL (3.4-5.0); Anion Gap 8 mmol/L (6-16); Blood Urea Nitrogen 29 mg/dL (8-24); Bun/Creatinine Ratio 17.2 (12.0-20.0); CO2, Blood 30 mmol/L (21-32); Calcium, Blood 8.9 mg/dL (8.5-10.1); Chloride, Blood 98 mmol/L (98-108); Creatinine, Blood 1.69 mg/dL (0.40-1.00); Glomerular Filtration Rate 36 (60-); Glucose, Blood 116 mg/dL (70-99); Phosphorus, Blood 2.4 mg/dL (2.5-4.9); Potassium, Blood 4.1 mmol/L (3.5-5.5); Sodium, Blood 136 mmol/L (136-145)
--- NOTE | 2021-11-29 18:59 | NUR ---
SHIFT SUMMARY: NO CHANGES TO NEURO. PATIENT TIRED AND SLEEPY POST DIALYSIS. 2L REMOVED TODAY, BLOOD PRODUCTS INFUSED. NO CHANGES TO TELE. DENIES CHEST PAIN/PRESSURE. MAP REMAINS SOFT, SEE EMAR FOR SCHEDULED MIDODRINE. HIGH FLOW NASAL CANNULA TITRATED THROUGHOUT THE SHIFT. AT THIS TIME ON 45L AND 70%. SATING LOW 90'S. COMPLAINS OF STOMACH CRAMP THIS AM, MEDICATED WITH ZOFRAN. NOT WANTING TO EAT MUCH. DRINKING SMALL AMOUNTS OF FLUIDS. PATIENT COUGHED UP 2 MODERATE SIZE BLOOD CLOTS THIS AM. SAVED AND DR. CHIN SHOWED. REQUESTED TO SAVE ALL BLOOD CLOTS EXPELLED SO HE CAN VISUALIZE THEM. NO OTHER ACUTE CHANGES. AT BEDSIDE. SLEEPING AT THIS TIME. WILL CONTINUE TO MONITOR AND REPORT OFF TO ONCOMING RN.
[2021-11-30 05:30] LABS: BASOPHILS PERCENT AUTO 0 % (0-2); EOSINOPHILS ABSOLUTE AUTO 0.04 K/mm3 (0.00-0.68); EOSINOPHILS PERCENT AUTO 1 % (0-6); Hematocrit 20.5 % (33.0-51.0); Hemoglobin 6.6 g/dL (11.5-16.0); IMMATURE GRAN ABSOLUTE AUTO 0.02 K/mm3 (0.00-0.10); IMMATURE GRAN PERCENT AUTO 0 % (0-1); LYMPHOCYTES ABSOLUTE AUTO 1.05 K/mm3 (0.84-5.20); LYMPHOCYTES PERCENT AUTO 19 % (21-46); MONOCYTES PERCENT AUTO 4 % (4-13); Mean Corpuscular HGB 31.4 pg (26.0-34.0); Mean Corpuscular HGB Conc 32.2 g/dL (31.5-36.5); Mean Corpuscular Volume 98 fL (80-100); NEUTROPHILS ABSOLUTE AUTO 4.22 K/mm3 (1.96-9.15); NEUTROPHILS PERCENT AUTO 76 % (41-73); NRBC ABSOLUTE 0.02 K/mm3 (0.00-0.02); NRBC Auto 0.4 /100 WBC (0.0-0.2); RDW Standard Deviation 72.6 fL (35.1-46.3); White Blood Cell Count 5.53 K/mm3 (4.00-11.30)
[2021-11-30 05:36] LABS: Mean Platelet Volume 13.6 fL (9.1-12.4); Platelet Count 16 K/mm3 (150-400)
--- NOTE | 2021-11-30 05:56 | NUR ---
SHIFT SUMMARY PT ALERT AND ORIENTED X 4. FORGETFUL AT TIMES. BED ALARM IN PLACE. HR STABLE. PHYSICIAN NOTIFIED OF LOW MAP AT BEGINNING OF SHIFT. ORDERS TO GIVE SCHEDULED MIDODRINE EARLY. PT'S BP INCREASED AND MAP STABLE. PT TURNED Q 2 HOURS. PT DESATS TO 60'S WITH MINIMAL EXERTION. ABLE TO RECOVER WHEN GIVEN 100% BOOST ON CPAP/AIRVO. SEE EHR FOR SETTINGS. PT ABLE TO USE BEDPAN NEEDED. NO CP OR PRESSURE. CRITICAL LAB VALUES CALLED IN, SEE EHR. PHYSICIAN TO PLACE ORDERS. CALL LIGHT WITHIN REACH. WILL CONT TO MONITOR UNTIL REPORT GIVEN TO DAYSHIFT RN.
[2021-11-30 07:36] LABS: Albumin, Blood 2.1 g/dL (3.4-5.0); Anion Gap 8 mmol/L (6-16); Blood Urea Nitrogen 56 mg/dL (8-24); Bun/Creatinine Ratio 20.2 (12.0-20.0); CO2, Blood 30 mmol/L (21-32); Calcium, Blood 8.7 mg/dL (8.5-10.1); Chloride, Blood 97 mmol/L (98-108); Creatinine, Blood 2.77 mg/dL (0.40-1.00); Glomerular Filtration Rate 20 (60-); Glucose, Blood 134 mg/dL (70-99); Phosphorus, Blood 3.2 mg/dL (2.5-4.9); Potassium, Blood 4.5 mmol/L (3.5-5.5); Sodium, Blood 135 mmol/L (136-145)
--- NOTE | 2021-11-30 12:51 | NUR ---
DIALYSIS PT LATE ON TX DUE TO MACHINE PROBLEMS. MACHINE USED FOR TRAVELING FAILED DIASAFE TEST. BIOMED CAME AND FIXED THEN THE AIR DETECTOR FAILED. WAITED FOR A PT TO COME OFF ANOTHER MACHINE, PREPARED IT THEN TOOK IT PT'S ROOM.
[2021-11-30 14:24] LABS: BASOPHILS PERCENT AUTO 0 % (0-2); EOSINOPHILS ABSOLUTE AUTO 0.05 K/mm3 (0.00-0.68); EOSINOPHILS PERCENT AUTO 1 % (0-6); Hematocrit 23.4 % (33.0-51.0); Hemoglobin 7.7 g/dL (11.5-16.0); IMMATURE GRAN ABSOLUTE AUTO 0.02 K/mm3 (0.00-0.10); IMMATURE GRAN PERCENT AUTO 0 % (0-1); LYMPHOCYTES ABSOLUTE AUTO 0.66 K/mm3 (0.84-5.20); LYMPHOCYTES PERCENT AUTO 13 % (21-46); MONOCYTES ABSOLUTE AUTO 0.27 K/mm3 (0.16-1.47); MONOCYTES PERCENT AUTO 5 % (4-13); Mean Corpuscular HGB 30.9 pg (26.0-34.0); Mean Corpuscular HGB Conc 32.9 g/dL (31.5-36.5); Mean Corpuscular Volume 94 fL (80-100); Mean Platelet Volume 11.5 fL (9.1-12.4); NEUTROPHILS ABSOLUTE AUTO 4.24 K/mm3 (1.96-9.15); NEUTROPHILS PERCENT AUTO 81 % (41-73); NRBC ABSOLUTE 0.07 K/mm3 (0.00-0.02); NRBC Auto 1.3 /100 WBC (0.0-0.2); RDW Coefficient Variation 21.7 % (11.7-14.2); RDW Standard Deviation 68.8 fL (35.1-46.3); Red Blood Cell Count 2.49 M/mm3 (3.80-5.20); White Blood Cell Count 5.24 K/mm3 (4.00-11.30)
[2021-11-30 14:33] LABS: Platelet Count 25 K/mm3 (150-400)
--- NOTE | 2021-11-30 17:17 | NUR ---
SHIFT SUMMARY: PT ALERT AND ORIENTED, COOPERATIVE WITH CARE T/OUT SHIFT, LETHARGIC POST DIALYSIS. PT W/ONE EPISODE EXPISTAXIS, CONTROLLED AT THIS TIME. PT NOT TOLERATING HIFLO NC W/OUT DESATURATION, SPENDS MOST OF THE SHIFT ON CPAP, CURRENTLY 10 cmH20 AND 85% O2, SATS >92%. SR ON MONITOR, MAP CONTINUES SOFT, MIDODRINE GIVEN PER ORDERS. PT WITH ONE INCONTINENT VOID, PERICARE PERFORMED W/CLEAN ATTENDS IN PLACE. DIALYSIS COMPLETED W/3L TAKEN OFF. PT ALSO RECEIVES 2 UNITS PLATELETS, 1 UNIT PRBC, 1 UNIT FFP. ECHO COMPLETED AT BEDSIDE. PT STARTED ON HIGH DOSE STEROID TX, 1ST OF 3 DAY TX.
--- NOTE | 2021-11-30 22:00 | NUR ---
UPDATE PT VERY ANXIOUS, CRYING. STATING SHE NEEDS SOMETHING "MORE THAN TRAZADONE. SHE STATES SHE IS SCARED AND AFRAID TO TAKE OF CPAP. PHYSICIAN NOTIFIED. ORDERS FOR 0.5 MG OF ATIVAN TO BE GIVEN. UPDATED THAT PT IS HAVING A DIFFICULT TIME AND IS EMOTIONAL AND SCARED. PLANS TO SEE PT AT 3 AM. WILL CONT TO MONITOR.
--- NOTE | 2021-12-01 | NUR ---
UPDATE PT CONFUSED, CONT TO PULL OFF CPAP AND DESAT DOWN TO 50'S. PHYSICIAN NOTIFIED. PT LIKELY CONFUSED D/T ATIVAN. INSTRUCTED TO CONT TO MONITOR.
[2021-12-01 04:49] LABS: BASOPHILS PERCENT AUTO 0 % (0-2); EOSINOPHILS PERCENT AUTO 0 % (0-6); Hematocrit 19.6 % (33.0-51.0); Hemoglobin 6.2 g/dL (11.5-16.0); IMMATURE GRAN ABSOLUTE AUTO 0.02 K/mm3 (0.00-0.10); IMMATURE GRAN PERCENT AUTO 1 % (0-1); LYMPHOCYTES ABSOLUTE AUTO 0.74 K/mm3 (0.84-5.20); LYMPHOCYTES PERCENT AUTO 18 % (21-46); MONOCYTES ABSOLUTE AUTO 0.18 K/mm3 (0.16-1.47); MONOCYTES PERCENT AUTO 4 % (4-13); Mean Corpuscular HGB 30.8 pg (26.0-34.0); Mean Corpuscular HGB Conc 31.6 g/dL (31.5-36.5); Mean Corpuscular Volume 98 fL (80-100); Mean Platelet Volume 11.5 fL (9.1-12.4); NEUTROPHILS ABSOLUTE AUTO 3.13 K/mm3 (1.96-9.15); NEUTROPHILS PERCENT AUTO 77 % (41-73); NRBC ABSOLUTE 0.03 K/mm3 (0.00-0.02); NRBC Auto 0.7 /100 WBC (0.0-0.2); RDW Coefficient Variation 22.8 % (11.7-14.2); RDW Standard Deviation 74.1 fL (35.1-46.3); Red Blood Cell Count 2.01 M/mm3 (3.80-5.20); White Blood Cell Count 4.07 K/mm3 (4.00-11.30)
[2021-12-01 04:53] LABS: Platelet Count 36 K/mm3 (150-400)
[2021-12-01 04:57] LABS: Albumin, Blood 2.2 g/dL (3.4-5.0); Anion Gap 8 mmol/L (6-16); Blood Urea Nitrogen 51 mg/dL (8-24); Bun/Creatinine Ratio 20.6 (12.0-20.0); CO2, Blood 29 mmol/L (21-32); Calcium, Blood 8.8 mg/dL (8.5-10.1); Chloride, Blood 99 mmol/L (98-108); Creatinine, Blood 2.47 mg/dL (0.40-1.00); Glomerular Filtration Rate 23 (60-); Glucose, Blood 149 mg/dL (70-99); Phosphorus, Blood 4.5 mg/dL (2.5-4.9); Potassium, Blood 4.8 mmol/L (3.5-5.5); Sodium, Blood 136 mmol/L (136-145)
--- NOTE | 2021-12-01 06:54 | NUR ---
SHIFT SUMMARY PT ALERT AND ORIENTED. SEE NOTES FOR CONFUSION T/O SHIFT. PT NOW ALERT AND ORIENTED X 4. AT BEDSIDE. PT TURNED Q 2 HOURS. SEE EHR FOR CPAP SETTINGS. PT WORE CPAP T/O SHIFT. WHEN PT REMOVES CPAP PT DESATS DOWN TO 50'S. PHYSICIAN AWARE. PT ABLE TO RECOVER QUICKLY. PHYSICIAN NOTIFIED OF AM PLT AND HGB. ORDERS FOR ONE UNIT OF PRBC'S TO BE GIVEN DURING DIALYSIS TODAY. PT HAD NO SIGNS OF BLEEDING T/O SHIFT. HR STABLE. BP STABLE. WAS NOT ABLE TO GIVE SCHEDULED MIDODRINE D/T SOB,CONFUSION AND LETHARGY. PT ABLE TO TOLERATE WATER THIS AM. CALL LIGHT WITHIN REACH. BED ALARM IN PLACE. WILL CONT TO MONITOR UNTIL REPORT GIVEN TO DAYSHIFT RN.
--- NOTE | 2021-12-01 08:39 | NUR ---
AM ASSESSMENT/TX TO ICU: During AM report Pt started to desaturate down to mid 80's on 100% fio2 with CPAP. RT was called and pt changed to BIPAP 14/8, 100% FIO2. RR 26-40. Pt biox continued to remain in mid to upper 80's. Dr. Beltran in room, order to transfer to ICU. Pt LS course, HR reg rate, rhythm. BP stable at this time. Pulses palp. Bruises noted on extrimities. PICC to RUE and permacath to R chest wall. BT positive but hypoactive. in room. Pt transfered to ICU 1. Report given to LION Warren.
[2021-12-01 08:44] LABS: PCO2 Arterial 43.7 mmHg (35-45); pH Blood Arterial 7.42 (7.35-7.45)
--- NOTE | 2021-12-01 08:47 | NUR ---
PT ARRIVES AT 0824 FROM PCU, 3 RNS AND 2 RTS IN ATTENDANCE. PT'S SATS IN THE MID TO HI 70'S. PT HEART RATE MID 70'S, BP 140'S/70S. PT ACKNOWLEDGES WHERE SHE IS AND ASKS FOR HER . LUNGS WITH SONOROUS INSPIRATORY, NO RALES HEARD. PULSES PALP X 4 EXTREMITIES. BIPAP 12 RATE 14, BREATHING RATE MID-HI 20'S. O2 100%. SATS IMPROVING TO 95%. SITTING UPRIGHT IN BED. DR. CHIN IN TO ASSESS PATIENT.
--- NOTE | 2021-12-01 09:31 | NUR ---
AMBER HERE TO DO DIALYSIS, GOING TO SPEAK TO DAUGHTER. WILL WAIT FOR GO AHEAD.
--- NOTE | 2021-12-01 10:06 | NUR ---
AFTER LENGTHY DISCUSSION PATIENT AND FAMILY DECIDED TO INTUBATE. INFORMED.
--- NOTE | 2021-12-01 10:26 | NUR ---
Spiritual Care visit. Pt. is in bed on a mask and elcomes my visit. Pt. is using a clip board to communicate to Spouse and PORFIRIO. Pt. is unsettled by her recent readmit to ICU and (using pen and paper verbalizes she wants to go home). Normalize the Pt. experience and give pastoral assessment counselor. Pt. displays evidence of agreement. [place] with Pt. and family. Family verbalizes gratitude for the spiritual care visit.
--- NOTE | 2021-12-01 11:05 | NUR ---
SUMMARY OF INTUBATION: PREPARATION CHECKLIST COMPLETED AND DOUBLE CHECKED BY , JORDAN RT AND DIANNRT. JOSELITO,RN AND LUDY,RN IN ROOM. PROPOFOL 100MG IV PUSH, ROCURONIUM 100 MG IVP @ 1039 AM. 1040 ETT 7.5 23CM AT THE LIP. COLOR CHANGE CONFIRMED, BREATH SOUNDS AUSCULATED BY , ADJUSTMENTS MADE TO VENTILATOR. SATS FINALLY COMING UP TO MID 90'S. RADIOLOGY CONFIRMED WITH CXR, DIALYSIS BEGAN WITH AMBER RN. SATS DROPPED 1100 TO LOW 80'S, AND RT JORDAN WORKING ON SETTINGS. RBC'S 1 UNIT TRANSFUSING WITH DIALYSIS. COVID SWAB ORDERED AND COLLECTED.
[2021-12-01 12:24] LABS: Influenza A, PCR NEGATIVE (NEGATIVE); Influenza B, PCR NEGATIVE (NEGATIVE); Resp Syncytial Virus, PCR NEGATIVE (NEGATIVE); SARS-Cov-2 (COVID-19) PCR, MMC NEGATIVE (NEGATIVE)
[2021-12-01 12:33] LABS: Albumin/Globulin Ratio 0.8 (0.8-1.8); Bilirubin, Direct 3.8 mg/dL (0.0-0.3); Bilirubin, Indirect 1.4 mg/dL (0.1-0.7); Bilirubin, Total 5.2 mg/dL (0.1-1.0); Globulin, Blood 3.7 g/dL (2.2-4.0); Total Protein, Blood 6.7 g/dL (6.4-8.2)
[2021-12-01 14:31] LABS: PCO2 Arterial 48.7 mmHg (35-45); PO2 Arterial 119 mmHg (80-100)
[2021-12-01 14:34] LABS: pH Blood Arterial 7.26 (7.35-7.45)
[2021-12-01 18:32] LABS: Hematocrit 28.9 % (33.0-51.0); Hemoglobin 9.1 g/dL (11.5-16.0)
--- NOTE | 2021-12-01 18:49 | NUR ---
VIPIN ARRIVED TO ICU TODAY FROM PCU WITH TACHYPNEA, TACHYCARDIA AND HYPOXEMIA. SHE WAS ASSESSED BY DR. CHIN AND GIVEN THE OPTION TO BE INTUBATED IN A CONTROLLED ENVIRONMENT OR TO WAIT UNTIL SHE "CRASHES". PT DISCUSSED WITH HER FAMILY, BASIA, DAUGHTER CRISTIANO AND SISTER EDUARDO. THEY AGREED WITH PLAN OF CARE AND VIPIN OPTED FOR INTUBATION. SHE WAS NOTED TO HAVE CHANGES IN THE ST DEPRESSION, AN EKG WAS OBTAINED, CONSULT FOR CARDIOLOGY AND AN ECHO WAS ORDERED. PT'S FAMILY WAS MADE AWARE OF THE SITUATION AND OPTED NOT TO DO A BRONCHOSCOPY THIS AFTERNOON POST DIALYSIS. SHE WAS STARTED ON NOREPINEPHRINE TITRATE TO KEEP MAP>65. SHE IS ALSO ON PROPOFOL @ 60MCG/KG. SHE WAS STARTED ON A FENTANYL CONTINUOUS AT 50MCG/HR. SHE CONTINUES ON THE VENT, RATE 20, vT 400, PEEP 14, 70% FIO2. SATS ARE MAINTAINING >90%. WAS ABLE TO WORK ON THE TRANSFER TO [facility], THEY ARE AWAITING A BED. REPORT WILL BE GIVEN TO THE NEXT SHIFT WHEN ABLE.
--- NOTE | 2021-12-01 19:13 | NUR ---
LATE ENTRY: CALL MADE TO AT 1810 IN REGARDS TO BP NOT MAINTAINING >65 MAP. ORDER RECEIVED FOR STAT H/H, DISCUSSED RELATION TO THE SEDATION TO KEEP PATIENT CALM AND SEDATED. H/H WAS IMPROVED. REPORTED TO NEXT SHIFT.
--- NOTE | 2021-12-01 22:27 | NUR ---
ASSUMED CARE AT 1900 PATIENT IS INTUBATED AND SEDATED ON PROPOFOL AND FENTANYL. SEDATION KEPT HIGHER FOR VENT COMPLIANCE, PATIENT RESPONDS TO SOME PAINFUL STIMULI. 02 SATS 95% ON VENT RR 20s. VENT SETTINGS AC VC 20/400/12/80%, PEEP TURNED DOWN FROM [address] CHIN. LS SLIGHTLY COARSE. SUCTIONED SMALL AMOUNT OF THICK RED SPUTUM FROM ETT. HR SR-ST 90s-110. MAP 50s-60s, LEVOPHED INFUSING, VASO ADDED PER DR. CHIN. UNABLE TO TITRATE SEDATION DOWN, PATIENT DOES NOT TOLERATE VENT. TROPONIN ELEVATED AT 784, CALLED TO HOSPITALIST, 0100 TROPONIN ORDERED. BED BATH DONE, PICTURES OF WOUNDS ADDED TO CHART, MEPILEX APPLIED TO COCCYX AND MEPITEL DRESSING ADDED TO BUTTOCKS WOUND. PATIENT REPOSITIONED.
[2021-12-02 02:15] LABS: Bun/Creatinine Ratio 23.2 (12.0-20.0); Calcium, Blood 8.7 mg/dL (8.5-10.1); Creatinine, Blood 2.98 mg/dL (0.40-1.00); Potassium, Blood 5.6 mmol/L (3.5-5.5)
[2021-12-02 02:27] LABS: Hematocrit 23.7 % (33.0-51.0); Hemoglobin 7.9 g/dL (11.5-16.0); Mean Corpuscular HGB 33.1 pg (26.0-34.0); Mean Corpuscular HGB Conc 33.3 g/dL (31.5-36.5); Mean Corpuscular Volume 99 fL (80-100); NRBC ABSOLUTE 0.15 K/mm3 (0.00-0.02); NRBC Auto 1.7 /100 WBC (0.0-0.2); RDW Coefficient Variation 23.5 % (11.7-14.2); Red Blood Cell Count 2.39 M/mm3 (3.80-5.20); White Blood Cell Count 9.04 K/mm3 (4.00-11.30)
[2021-12-02 02:30] LABS: Platelet Count 47 K/mm3 (150-400)
[2021-12-02 03:21] LABS: SARS-Cov-2 (COVID-19) PCR, MMC NEGATIVE (NEGATIVE)
--- NOTE | 2021-12-02 04:08 | NUR ---
[facility] TRANSFER TO [facility], PATIENT LEFT VIA AMBULANCE WITH RT AT APPROX. 0350. PATIENT INTUBATED AND VERY SEDATED ON PROPOFOL AND FENTANYL. 02 SATS >93% ON VENT AC VC 20/400/12/90%, RR 20s. SCANT AMOUNT OF BLOODY SPUTUM IN ETT. HR SR-ST 80s-110, PATIENT OCCASIONALLY IN A TACHY JUNCTIONAL RHYTHM. BP WITH MAP >60 ON LEVOPHED AND VASOPRESSIN. TROPONINS ELEVATED, CALLED CRITICAL VALUE TO HOSPITALIST, NO NEW ORDERS. TUBE FEED, VITAL HP INF AT GOAL RATE OF 20 MLS HR, WITH 30 MLS FLUSHES Q4 HOURS, STOPPED FOR TRANSPORT, OG FLUSHED AND CLAMPED. CALLED REPORT TO BRAXTON SEYMOUR AT [facility] PATIENT WAS LEAVING THE UNIT. OBSERVATION NURSE UPDATED ON THE TRANSFER.
[2021-12-07 15:09] LABS: ANCA BY IFA (RDL) Negative (Negative); ANTI-MPO AB (RDL) <20 Units (<20); ANTI-PR-3 AB (RDL) <20 Units (<20)
== END 2021-12-02 03:50 | disposition short-term general hospital (02) | DRG 673 ==
LOC: ER 11:34 → ICUW 17:28 → ICUE 17:28 → PCU 17:28 → MEDS 17:28 → ICUW 11-01 09:10 → PCU 11-03 19:10 → ICUE 11-05 05:35 → PCU 11-19 19:34 → ICUE 12-01 08:34
PROVIDERS: Internal Medicine; Internal Medicine Critical Care Medicine; Internal Medicine Gastroenterology; Internal Medicine Hematology & Oncology; Internal Medicine Nephrology; Physician Assistant; Student in an Organized Health Care Education/Training Program; ADMIT Internal Medicine
PROC: 30233N1 Transfusion of Nonautologous Red Blood Cells into Peripheral Vein, Percutaneous Approach (ICD-10-PCS; principal; 2021-10-27)
PROC: 0DJ08ZZ Inspection of Upper Intestinal Tract, Via Natural or Artificial Opening Endoscopic (ICD-10-PCS; 2021-10-30)
PROC: 5A1D70Z Performance of Urinary Filtration, Intermittent, Less than 6 Hours Per Day (ICD-10-PCS; 2021-11-02)
PROC: 02HV33Z Insertion of Infusion Device into Superior Vena Cava, Percutaneous Approach (ICD-10-PCS; 2021-11-02)
PROC: 5A1955Z Respiratory Ventilation, Greater than 96 Consecutive Hours (ICD-10-PCS; 2021-11-07)
PROC: 0BH18EZ Insertion of Endotracheal Airway into Trachea, Via Natural or Artificial Opening Endoscopic (ICD-10-PCS; 2021-11-07)
PROC: 02HV33Z Insertion of Infusion Device into Superior Vena Cava, Percutaneous Approach (ICD-10-PCS; 2021-11-07)
PROC: 0BJ08ZZ Inspection of Tracheobronchial Tree, Via Natural or Artificial Opening Endoscopic (ICD-10-PCS; 2021-11-09)
PROC: 0JH63XZ Insertion of Tunneled Vascular Access Device into Chest Subcutaneous Tissue and Fascia, Percutaneous Approach (ICD-10-PCS; 2021-11-22)
PROC: 02HV33Z Insertion of Infusion Device into Superior Vena Cava, Percutaneous Approach (ICD-10-PCS; 2021-11-22)
PROC: B548ZZA Ultrasonography of Superior Vena Cava, Guidance (ICD-10-PCS; 2021-11-22)
PROC: 3E033XZ Introduction of Vasopressor into Peripheral Vein, Percutaneous Approach (ICD-10-PCS; 2021-11-22)
DX: N17.0 Acute kidney failure with tubular necrosis (principal); G93.41 Metabolic encephalopathy; I21.4 Non-ST elevation (NSTEMI) myocardial infarction; I33.0 Acute and subacute infective endocarditis; J96.01 Acute respiratory failure with hypoxia; E87.2 Acidosis; K76.6 Portal hypertension; R78.81 Bacteremia; Z20.822 Contact with and (suspected) exposure to COVID-19; E87.5 Hyperkalemia; R04.0 Epistaxis; I12.9 Hypertensive chronic kidney disease with stage 1 through stage 4 chronic kidney disease, or unspecified chronic kidney disease; M54.9 Dorsalgia, unspecified; K59.00 Constipation, unspecified; G89.29 Other chronic pain; F10.20 Alcohol dependence, uncomplicated; N18.30 Chronic kidney disease, stage 3 unspecified; E66.9 Obesity, unspecified; D63.1 Anemia in chronic kidney disease; K70.31 Alcoholic cirrhosis of liver with ascites; B95.5 Unspecified streptococcus as the cause of diseases classified elsewhere; D69.59 Other secondary thrombocytopenia; I48.91 Unspecified atrial fibrillation; Z68.35 Body mass index [BMI] 35.0-35.9, adult; Z87.891 Personal history of nicotine dependence; Z90.710 Acquired absence of both cervix and uterus; Z98.890 Other specified postprocedural states; Z79.899 Other long term (current) drug therapy
CPT/HCPCS: 0241U; 31500; 36415; 36430; 36556; 36558; 36569; 36600; 51702; 70486; 71045; 71250; 74176; 76700; 77001; 80048; 80053; 80069; 80074; 80076; 80202; 81001; 82103; 82105; 82140; 82247; 82248; 82330; 82550; 82570; 82607; 82728; 82746; 82803; 82947; 83010; 83516; 83520; 83540; 83550; 83605; 83615; 83735; 83880; 83970; 84100; 84145; 84156; 84165; 84166; 84300; 84439; 84443; 84478; 84484; 84540; 85014; 85018; 85025; 85027; 85060; 85384; 85610; 85651; 85730; 86015; 86022; 86036; 86037; 86038; 86140; 86141; 86160; 86225; 86235; 86317; 86381; 86704; 86708; 86803; 86850; 86900; 86901; 86923; 87040; 87070; 87086; 87102; 87106; 87184; 87205; 87340; 87507; 92526; 92610; 93005; 93010; 93306; 93308; 93312; 93321; 93325; 93970; 94002; 94003; 94640; 94660; 94664; 94760; 94762; 96361; 96374; 97110; 97161; 97162; 97166; 97530; 99152; 99285-25; A9270; C1750; C1751; C1752; C1769; C1894; C9113; J0171; J0456; J0461; J0692; J0696; J1644; J1742; J1815; J1940; J2060; J2250; J2354; J2405; J2704; J2916; J2930; J3010; J3370; J7030; J7040; J7050; J7060; J7512; P9016; P9035; P9046; P9059; Q5106; Q9967; U0004